=== PATIENT | female | born 1995 | race Caucasian/White ===

== ENCOUNTER 2017-04-28 12:42 | Emergency (ER) | payer SELFPAY ==
[2017-04-28 12:42] VITALS: BP 134/76; PULSE 86; RESP 14; TEMP 36.8; O2SAT 100; BMI 19.4
--- NOTE | 2017-04-28 12:58 | ED.VISSUMM ---
- ER Visit Summary Date of Service: 04/28/17 Chief Complaint: Vomiting and diarrhea History of Present Illness: The patient is a 21 F who states that beginning yesterday morning she began to have vomiting. She notes some slight diarrhea. She has a history of ulcerative colitis but denies any significant abdominal pain. No blood in the stool or vomit. She recently restarted her ulcerative colitis medications. She notes some rhinorrhea and a slight cough. Denies any significant headache or fevers. No rashes. She attempted to work today but had to leave work. She also states she is supposed to work tomorrow. Physical Examination: Afebrile vital signs are stable Gen: Well-nourished well-developed Head: Normocephalic atraumatic Eyes: Perrl EOMI ENT: TMs clear no rhinorrhea moist mucous membranes Neck: Supple no lymphadenopathy no JVD nontender CVS: Regular rate rhythm no murmurs normal S1-S2 Respiratory: No distress clear to auscultation bilaterally chest nontender Abdomen: Soft nontender nondistended normal bowel sounds no masses Back: Nontender Extremity: Nontender no edema Skin: Normal color no rash Neuro: alert orientated ?3 CN II-XII intact normal strength sensation reflexes gait cerebellar Psych: Normal affect normal mood Emergency Department Course and Treatment: She appears well-hydrated. Her vital signs are normal. Patient will be given a dose of Zofran here. She is to continue Zofran and Imodium at home. Return if worsening. Impression:. Viral gastroenteritis This note was generated with [employer] dictation software. It may contain incorrect words, spelling, and punctuation that were not noted in review of the chart prior to signing ED Disposition - Plan for ED Patient: Disposition: Home or Assisted Living Chief Complaint: Nausea/Vomiting Instructions: ED Gastroenteritis Viral Prescriptions: Ondansetron [Zofran Odt] 4 mg PO Q6H PRN PRN #10 tab PRN Reason: Nausea Referrals: Care Physician,No Primary [Primary Care Provider] - Sean Dean MD [STAFF PHYSICIAN] - (in 3-5 days if not improving. Return if worsening)
[2017-04-28] MEDS: Ondansetron ODT 4 MG Tablet PO (13:11)
== END 2017-04-28 13:34 | disposition home or self-care (01) ==
LOC: ED 13:20
PROVIDERS: Emergency Provider Emergency Medicine
DX: A08.4 Viral intestinal infection, unspecified (principal); K51.90 Ulcerative colitis, unspecified, without complications; Z72.0 Tobacco use; Z79.2 Long term (current) use of antibiotics; Z79.899 Other long term (current) drug therapy
CPT/HCPCS: 99283

== ENCOUNTER 2017-09-12 10:46 | Emergency (ER) | payer SELFPAY ==
[2017-09-12 10:46] VITALS: BP 114/69; PULSE 74; RESP 16; TEMP 36.9; O2SAT 100; BMI 18.0
[2017-09-12] MEDS: 0.9% Normal Saline 1,000 ML 1000 ML IV (11:31)
[2017-09-12 11:36] LABS: Absolute Lymphocyte Count 2.59 X10^3/ul (0.83-4.51); Absolute Neutrophil Count 5.6 X10^3/uL (2.0-7.7); Basophil# 0.03 X10^3/uL; Basophil% 0.3 % (0-1); Eosinophils% 1.1 % (0-5); Hematocrit 41.2 % (37-47); Hemoglobin 13.6 g/dl (12.0-15.0); Lymphocyte # 2.59 X10^3/ul (4.0); Lymphocyte % 29.8 % (19-41); Mean Corpuscular Hgb 32.5 pg (27.0-32.0); Mean Corpuscular Volume 98.3 fL (81-99); Mean Platelet Vol. 10.6 fl (6.2-12.0); Monocyte# 0.39 X10^3/uL; Monocyte% 4.5 % (0-10); Neutrophil # 5.58 X10^3/uL (2.7-7.7); Neutrophil % 64.2 % (47-70); POSITIVE COUNT NO; POSITIVE DIFFERENTIAL NO; POSITIVE MORPHOLOGY NO; Platelet Count 162 K/mm3 (150-450); RBC Distribution Width CV 12.4 % (11.6-14.6); Red Blood Count 4.19 M/mm3 (4.2-5.4); White Blood Count 8.7 K/mm3 (4.4-11.0)
[2017-09-12 11:51] LABS: Anion Gap 4 (5-15); BUN 16 mg/dL (7-18); BUN/Creat Ratio 22.5 RATIO (10-20); Calcium,Total 9.3 mg/dL (8.5-10.1); Chloride 107 mmol/L (98-107); Creatinine, Serum 0.71 mg/dL (0.55-1.02); EST Glomerular Filtration Rate 110 mL/min (>60); Est Glom Filt Rate - Afr Amer 133 mL/min (>60); Estimated Creatinine Clearance 103.39 ml/min; Glucose 81 mg/dL (74-106); Potassium 4.3 mmol/L (3.5-5.1); Sodium Level 143 mmol/L (136-145)
[2017-09-12 13:11] VITALS: BP 121/68; PULSE 74; RESP 15; O2SAT 98
--- NOTE | 2017-09-12 13:31 | ED.VISSUMM ---
- ER Visit Summary Date of Service: 09/12/17 Chief Complaint: Nausea and vomiting History of Present Illness: The patient is a 22 F history of ulcerative colitis diagnosed several years ago. Complaining of nausea and vomiting for the last 5 days since Saturday. Denies melena. She has intermittent times where she has diarrhea and other times she has constipation. Denies any dysuria. States she had a normal menstrual period within the last 2 weeks. Currently is does not have a primary care physician or a GI physician. She states she was scoped and had a biopsy of her colon 2-3 years ago here at [facility]. Physical Examination: Well-appearing young female. Vital signs are stable and afebrile. She does not look septic toxic or in acute rest. She clinically does not look dehydrated. H EENT exam unremarkable. Neck nontender no lymphadenopathy. Lungs good auscultation bilaterally. Heart regular rhythm no murmur. Abdomen soft nondistended normal bowel sounds. Mild left lateral lower quadrant tenderness. No rebound or guarding. No rigidity. Nondistended. No signs of obstruction. No hernias or masses. Right upper right lower quadrant unremarkable. No signs of trauma. Normal bowel sounds. Pelvic girdle intact. She is moving all 4 extremities. Neurovascular intact. Back exam nontender. Test Results: CBC showed a normal white count 8. H&H of 13 and 41. Chemistries are unremarkable gap 4. Normal BUN and creatinine. Emergency Department Course and Treatment: Repeat exam patient is doing well. She will be discharged home. Tylenol for pain. She will be written for pain medication for her ulcerative colitis. And she will be instructed to follow-up with local GI physician. Treatment Plan: [] Disposition: Discharge Impression: Abdominal pain uncertain etiology History of ulcerative colitis This note was generated with [employer] dictation software. It may contain incorrect words, spelling, and punctuation that were not noted in review of the chart prior to signing ED Disposition - Plan for ED Patient: Chief Complaint: Abd Pain Referrals: Care Physician,No Primary [Primary Care Provider] -
--- NOTE | 2017-09-12 13:34 | ED.DEP ---
ED Disposition - Plan for ED Patient: Disposition: Home or Assisted Living Chief Complaint: Abd Pain Instructions: ED Abdominal Pain Unkn Cause Referrals: Eron Patel MD [NON-STAFF] - As soon as possible Dunia Narayanan [NON-STAFF] - As soon as possible Additional Instructions: Asacol 800 mg 3 times a day. Call and follow-up with the GI doctor as soon as possible. You will need him to manage his condition long-term. Tylenol for pain.
[2017-09-12 13:52] VITALS: PULSE 68; RESP 18; O2SAT 100
== END 2017-09-12 13:53 | disposition home or self-care (01) ==
PROVIDERS: Emergency Provider Emergency Medicine
DX: R10.32 Left lower quadrant pain (principal); K51.90 Ulcerative colitis, unspecified, without complications; Z72.0 Tobacco use
CPT/HCPCS: 80048; 85025; 96360; 99283; J7030

== ENCOUNTER → 2020-01-11 16:44 | Outpatient (CLI) | payer OTHER, SELFPAY ==
[2020-01-11 18:12] LABS: T4 Free Direct 0.82 ng/dL (0.76-1.46); Thyroid Stim Hormone (TSH) 0.66 uIU/mL (0.358-3.74)
[2020-01-14 05:17] LABS: Testosterone Free 4.2 pg/mL (0.0-4.2)
== END ==
LOC: WOBLAB 16:47
PROVIDERS: Visit Provider Obstetrics & Gynecology
DX: N93.9 Abnormal uterine and vaginal bleeding, unspecified (principal)
CPT/HCPCS: 36415; 84146; 84402; 84439; 84443

== ENCOUNTER → 2020-03-07 | Outpatient (CLI) | payer OTHER, SELFPAY ==
[2020-03-09 12:26] LABS: HPV Reflexed? NOT INDICATED
== END | disposition home or self-care (01) ==
LOC: LABSPEC 11:55
PROVIDERS: Visit Provider Obstetrics & Gynecology
DX: Z12.4 Encounter for screening for malignant neoplasm of cervix (principal)
CPT/HCPCS: 88175; G0145

== ENCOUNTER 2020-11-26 10:24 | Emergency (ER) | payer MEDICARE, SELFPAY ==
[2020-11-26 10:25] VITALS: BP 126/89; PULSE 81; RESP 16; TEMP 36.9; O2SAT 99; BMI 21.2
--- NOTE | 2020-11-26 10:51 | RAD_ITS ---
HISTORY: Weakness. TECHNIQUE: XR Chest 1 View. # of images incl. paperwork: 1. COMPARISON: 04/29/2015. FINDINGS: CARDIOMEDIASTINAL STRUCTURES: Cardiac silhouette not enlarged. Mediastinal contour unremarkable. LUNGS: Radiographically clear. PLEURA: No pleural effusion or pneumothorax. OSSEOUS STRUCTURES: Unremarkable. RAD/Chest 1 View (Portable) IMPRESSION: No radiographic evidence of acute cardiopulmonary disease. at 1322 Reported and signed by: Mary Flores MD Electronically Signed: Mary Flores MD at 13:21 EDT Tel , Service support ,
--- NOTE | 2020-11-26 10:53 | EDS_ITS ---
HPI History of Present Illness Chief Complaint: General Illness Onset/Context/Timing Onset: Days (4) Context: Gradual Onset Timing: Continuous Quality: Weakness Location: Generalized Worsened by: Nothing Relieved by: Eating Narrative Narrative: Patient presents with low blood sugar and generalized weakness that has been getting worse over the last 4 days. Patient states it has been constant. Patient states she had a temperature of 100.6 last night. Patient states her blood sugars improved after eating. Patient states she did have an episode of pain in her chest yesterday when she was lifting something. Patient admits to a mild sore throat and some rhinorrhea. Patient admits to an o ccipital headache. Patient admits to nausea but denies any vomiting. [facility] Medical History (Updated 11/26/20 @ 13:[address] Alan Swenson DO) Ulcerative colitis Home Medications NK 11/26/20 [History Last Taken Unknown] Allergy/AdvReac Type Severity Reaction Status Date / Time bee venom protein (honey bee) Allergy Swelling Verified 11/26/20 10:43 codeine Allergy Hives Verified 11/26/20 10:43 Surgical History (Updated 11/26/20 @ 12:[address] Alan Swenson DO) Hx of tonsillectomy Social History Smoking Status: Current every day smoker tobacco type: cigarettes ROS ROS ED Constitutional Constitutional ED: Reports fever(s); Denies chills Eyes Eyes: Denies blurry vision or change in vision ENT ENT ED: Reports rhinorrhea and sore throat Cardiovascular Cardiovascular: Reports chest pain; Denies palpitations Respiratory/Chest Respiratory/Chest: Denies cough or dyspnea Gastrointestinal Gastrointestinal: Reports nausea; Denies vomiting Genitourinary Genitourinary ED: Denies dysuria or hematuria Musculoskeletal Musculoskeletal: Reports back pain; Denies neck pain Integumentary Reports rash; Denies abscess Neurologic Neurologic: Reports headache(s); Denies weakness Allergic/Immunologic Allergic/Immunologic ED: Denies mouth swelling or urticaria EXAM Physical Exam Const Vital Signs: 11/26/20 10:25 11/26/20 10:32 11/26/20 13:06 Temperature 98.5 F Temperature Source Oral Pulse Rate 81 86 Respiratory Rate 16 16 Respiratory Pattern Normal Blood Pressure 126/89 H 114/63 Blood Pressure Mean 101 80 Pulse Ox 99 99 Oxygen Delivery Method Room Air Room Air Positive well nourished and well developed General Appearance ED: well developed HEENT Reports moist mucous membranes Neck supple and no JVD Resp normal respiratory effort and clear to auscultation bilaterally Cardio regular rate, regular rhythm and no murmurs GI normal to inspection, nondistended, normoactive bowel sounds and non-tender Palpation: soft Extremity normal to inspection General Extremety ED: Negative for edema or tenderness General Extremity: Negative for edema Neuro oriented x3, CN's II-XII intact bilaterally and no sensory deficits noted Sensorium / Orientation: alert Motor Exam: strength 5/5 throughout Psych mental status grossly normal Skin no rashes or lesions noted MDM MDM MDM Narrative Medical decision making narrative: COVID-19 rapid antigen was obtained and was positive. CBC was within normal limits. Comprehensive metabolic profile was normal. Serum hCG was negative. Urinalysis does not show any evidence of urinary tract infection. Portable 1 view chest x-ray was obtained. On my interpretation, lung grimes are clear. There is normal cardiac silhouette. Bony thorax is normal. There is no acute process noted. Radiologist also interpreted the x-ray and agrees. Patient is feeling better on reevaluation. Patient was instructed to follow-up with her primary care physician in 5 to 7 days. Patient was given Covid precautions. Patient was instructed to return if worse in any way. Patient understood and was agreeable with the plan. All questions were answered. Lab Data Attestation: I reviewed the patient's lab results. Labs: Laboratory Results - last 24 hr 11/26/20 11/26/20 11/26/20 11:05 11:05 11:05 WBC 5.5 RBC 4.41 Hgb 13.9 Hct 42.2 MCV 95.7 MCH 31.5 MCHC 32.9 RDW Std Deviation 43.9 RDW Coeff of Renetta 12.4 Plt Count 187 MPV 10.4 Immature Gran % (Auto) 0.400 Neut % (Auto) 77.4 H Lymph % (Auto) 12.7 L [place] % (Auto) 8.9 Eos % (Auto) 0.2 Baso % (Auto) 0.4 Absolute Neuts (auto) 4.3 Absolute Lymphs (auto) 0.70 L Nucleated RBC % 0 Sodium 137 Potassium 3.9 Chloride 107 Carbon Dioxide 25.0 Anion Gap 5 BUN 11 Creatinine 0.76 Estim Creat Clear Calc 110.50 Est GFR (MDRD) Af Amer 119 Est GFR (MDRD) Non-Af 99 BUN/Creatinine Ratio 14.4 Glucose 93 Calcium 9.1 Total Bilirubin 0.40 AST 19 ALT 25 Alkaline Phosphatase 73 Total Protein 7.9 Albumin 4.2 Globulin 3.7 Albumin/Globulin Ratio 1.1 Serum , Qual NEGATIVE Urine Color Urine Clarity Urine pH Ur Specific [place] Urine Protein Urine Glucose (UA) Urine Ketones Urine Occult Blood Urine Nitrite Urine Bilirubin Urine Urobilinogen Ur Leukocyte Esterase Urine RBC Urine WBC Ur Squamous Epith Cells Urine Bacteria Urine Mucus 11/26/20 12:52 WBC RBC Hgb Hct MCV MCH MCHC RDW Std Deviation RDW Coeff of Renetta Plt Count MPV Immature Gran % (Auto) Neut % (Auto) Lymph % (Auto) [place] % (Auto) Eos % (Auto) Baso % (Auto) Absolute Neuts (auto) Absolute Lymphs (auto) Nucleated RBC % Sodium Potassium Chloride Carbon Dioxide Anion Gap BUN Creatinine Estim Creat Clear Calc Est GFR (MDRD) Af Amer Est GFR (MDRD) Non-Af BUN/Creatinine Ratio Glucose Calcium Total Bilirubin AST ALT Alkaline Phosphatase Total Protein Albumin Globulin Albumin/Globulin Ratio Serum , Qual Urine Color Yellow Urine Clarity Clear Urine pH 6.5 Ur Specific [place] 1.020 Urine Protein 15 H Urine Glucose (UA) Normal Urine Ketones 50 H Urine Occult Blood Negative Urine Nitrite Negative Urine Bilirubin Negative Urine Urobilinogen 4 H Ur Leukocyte Esterase Negative Urine RBC 0 SEEN Urine WBC 0 SEEN Ur Squamous Epith Cells 0 SEEN Urine Bacteria 0 SEEN Urine Mucus 0 SEEN Radiography Chest X-Ray - ED: 1 View, Read by ED Physician, Read by Radiologist and Normal Diagnostic Testing: Radiology Impression Chest X-Ray 11/26/20 10:51 IMPRESSION: No radiographic evidence of acute cardiopulmonary disease. at 1322 Reported and signed by: Mary Flores MD Electronically Signed: Mary Flores MD at 13:21 EDT Tel , Service support , Discharge Plan Triage Chief Complaint: General Illness ED Provider: Alan Swenson Dx/Rx/DC Orders Clinical Impression: COVID-19 Instructions: Coronavirus Disease 2019 (COVID-19): Caring for Yourself or Others Prescriptions: No Action NK RF: 0 Primary Care Provider: Care Physician,No Primary Referrals: Mark Hernandez MD [NON-STAFF] - 5-7 Days Care Physician,No Primary [Primary Care Provider] - Disposition Disposition: Home, Self Care
[2020-11-26 11:14] LABS: Absolute Neutrophil Count 4.3 X10^3/uL (2.0-7.7); Basophil# 0.02 X10^3/uL; Basophil% 0.4 % (0-1); Eosinophil# 0.01 X10^3/uL; Eosinophils% 0.2 % (0-5); Hematocrit 42.2 % (37-47); Hemoglobin 13.9 g/dL (12.0-15.0); Lymphocyte % 12.7 % (19-41); Mean Corp Hgb Conc 32.9 g/dL (32-36); Mean Corpuscular Hgb 31.5 pg (27.0-32.0); Mean Corpuscular Volume 95.7 fL (81-99); Mean Platelet Vol. 10.4 fl (6.2-12.0); Monocyte# 0.49 X10^3/uL; Monocyte% 8.9 % (0-10); NRBC Flagged by Analyzer 0 % (0-5); Neutrophil # 4.29 X10^3/uL (2.7-7.7); Neutrophil % 77.4 % (47-70); Platelet Count 187 K/mm3 (150-450); RBC Distribution Width CV 12.4 % (11.6-14.6); RBC Distribution Width SD 43.9 fl (35.1-43.9); Red Blood Count 4.41 M/mm3 (4.2-5.4); White Blood Count 5.5 K/mm3 (4.4-11.0)
[2020-11-26 11:29] LABS: ALB/GLOB Ratio 1.1 RATIO (0.9-2.4); AST(SGOT) 19 U/L (15-37); Alanine Aminotransfer ALT/SGPT 25 U/L (13-56); Albumin, Serum 4.2 g/dL (3.2-5.0); Alkaline Phosphatase 73 U/L (45-117); Anion Gap 5 (5-15); BUN 11 mg/dL (7-18); BUN/Creat Ratio 14.4 RATIO (10-20); Calcium,Total 9.1 mg/dL (8.5-10.1); Chloride 107 mmol/L (98-107); Creatinine, Serum 0.76 mg/dL (0.55-1.02); EST Glomerular Filtration Rate 99 mL/min (>60); Est Glom Filt Rate - Afr Amer 119 mL/min (>60); Globulin 3.7 g/dL (2.2-4.2); Glucose 93 mg/dL (74-106); Potassium 3.9 mmol/L (3.5-5.1); Protein, Total 7.9 g/dL (6.4-8.2); Sodium Level 137 mmol/L (136-145)
[2020-11-26 11:32] LABS: Internal QC Validated? YES +Cl - CLEAR BKGD; Pregnancy, Serum, hCG Quali. NEGATIVE Negative
[2020-11-26 12:58] LABS: Bacteria 0 SEEN /hpf (None Seen); Color, Urine Yellow (Yellow); Glucose, Dipstick Normal (Normal); Ketone-Dipstick 50 mg/dl (Negative); Leukocyte Esterase-Dipstick Negative /ul (Negative); Mucous, Urine 0 SEEN /hpf (<or=2+); Nitrite-Dipstick Negative (Negative); Occult Blood-Urine Negative /ul (Negative); Protein-Dipstick 15 mg/dl (Negative); Red Blood Cells-Urine 0 SEEN /hpf (0-5); Squamous Epithelial Cells - UA 0 SEEN /hpf (5-10); Urine Bilirubin Dipstick Negative (Negative); Urine Clarity Clear (Clear); Urine Urobilinogen 4 mg/dl (Normal); Urine pH 6.5 (5.0 - 8.0); White Blood Cells 0 SEEN /hpf (0-5)
[2020-11-26 13:06] VITALS: BP 114/63; PULSE 86; RESP 16; O2SAT 99
== END 2020-11-26 13:38 | disposition home or self-care (01) ==
PROVIDERS: Emergency Provider Emergency Medicine
DX: U07.1 COVID-19 (principal); F17.210 Nicotine dependence, cigarettes, uncomplicated
CPT/HCPCS: 71045; 80053; 81001; 84703; 85025; 87426; 99283; A4216

== ENCOUNTER 2021-09-13 16:04 | Emergency (ER) | payer SELFPAY ==
[2021-09-13 16:04] VITALS: BP 128/84; PULSE 73; RESP 16; TEMP 36.6; O2SAT 100; BMI 20.3
--- NOTE | 2021-09-13 16:46 | EX.ED.DYSGE1 ---
HPI History of Present Illness Chief Complaint: General Illness Informant: patient Onset/Context/Timing Onset: Yesterday Context: Gradual Onset Timing: Intermittent Quality: Weak, shaky Location: Generalized Worsened by: Nothing Relieved by: Eating Narrative Narrative: Patient presents with headaches and hypoglycemic episodes that began yesterday. Patient states they have been intermittent. Patient states she feels weak and shaky. Patient states her symptoms are generalized. Patient states nothing makes worse. Patient states that the get better after she eats. Patient states her last meal was approximately noon today. Patient admits to some nausea and vomiting last night. Patient admits to a headache. Patient states it is generalized. Patient denies any visual changes. [facility] Medical History Ulcerative colitis Home Medications NK 11/26/20 [History Last Taken Unknown] Allergy/AdvReac Type Severity Reaction Status Date / Time bee venom protein (honey bee) Allergy Swelling Verified 09/13/21 16:06 codeine Allergy Hives Verified 09/13/21 16:06 Surgical History Hx of tonsillectomy Social History Smoking Status: Current every day smoker tobacco type: cigarettes ROS ROS ED Constitutional Constitutional ED: Denies chills or fever(s) Eyes Eyes: Denies blurry vision or change in vision ENT ENT ED: Denies rhinorrhea or sore throat Cardiovascular Cardiovascular: Denies chest pain or palpitations Respiratory/Chest Respiratory/Chest: Denies cough or dyspnea Gastrointestinal Gastrointestinal: Reports nausea and vomiting Genitourinary Genitourinary ED: Denies dysuria or hematuria Musculoskeletal Musculoskeletal: Denies back pain or neck pain Integumentary Denies abscess or rash Neurologic Neurologic: Reports headache(s); Denies weakness Allergic/Immunologic Allergic/Immunologic ED: Denies mouth swelling or urticaria EXAM Physical Exam Const Vital Signs: 09/13/21 16:04 09/13/21 16:30 09/13/21 18:04 Temperature 98 F Temperature Source Temporal Pulse Rate 73 78 Respiratory Rate 16 16 Respiratory Effort Normal Non-Labored Respiratory Pattern Normal Blood Pressure 128/84 H 122/78 H Blood Pressure Mean 98 92 Pulse Ox 100 99 Oxygen Delivery Method Room Air Room Air Positive well nourished and well developed General Appearance ED: well developed HEENT Reports moist mucous membranes Neck supple and no JVD Resp normal respiratory effort and clear to auscultation bilaterally Cardio regular rate, regular rhythm and no murmurs GI normal to inspection, nondistended, normoactive bowel sounds and non-tender Palpation: soft Extremity normal to inspection General Extremety ED: Negative for edema or tenderness General Extremity: Negative for edema Neuro oriented x3, CN's II-XII intact bilaterally and no sensory deficits noted Sensorium / Orientation: alert Motor Exam: strength 5/5 throughout Psych mental status grossly normal Skin no rashes or lesions noted MDM MDM MDM Narrative Medical decision making narrative: CBC was within normal limits. Comprehensive metabolic profile was within normal limits. Anion gap was 2. Serum hCG was negative. Urinalysis does not show any evidence of urinary tract infection or hematuria. Patient was advised of her findings. Patient is instructed to keep a log of her blood sugars at home. Patient was given a referral for primary care physician for follow-up care in 5 to 7 days. Patient understood and was agreeable at the plan. All questions were answered. Lab Data Attestation: I reviewed the patient's lab results. Labs: Laboratory Results - last 24 hr 09/13/21 09/13/21 09/13/21 17:05 17:05 17:05 WBC 9.9 RBC 4.16 L Hgb 13.1 Hct 39.8 MCV 95.7 MCH 31.5 MCHC 32.9 RDW Std Deviation 43.9 RDW Coeff of Renetta 12.4 Plt Count 230 MPV 10.5 Immature Gran % (Auto) 0.200 Neut % (Auto) 68.9 Lymph % (Auto) 26.0 [place] % (Auto) 3.8 Eos % (Auto) 0.6 Baso % (Auto) 0.5 Absolute Neuts (auto) 6.8 Absolute Lymphs (auto) 2.57 Nucleated RBC % 0 Sodium 140 Potassium 3.9 Chloride 109 H Carbon Dioxide 29.0 Anion Gap 2 L BUN 11 Creatinine 0.76 Estim Creat Clear Calc 105.34 Est GFR (MDRD) Af Amer 120 Est GFR (MDRD) Non-Af 99 BUN/Creatinine Ratio 14.5 Glucose 86 Calcium 9.2 Total Bilirubin 0.40 AST 17 ALT 23 Alkaline Phosphatase 59 Total Protein 7.2 Albumin 4.0 Globulin 3.2 Albumin/Globulin Ratio 1.2 Serum , Qual NEGATIVE Urine Color Urine Clarity Urine pH Ur Specific [place] Urine Protein Urine Glucose (UA) Urine Ketones Urine Occult Blood Urine Nitrite Urine Bilirubin Urine Urobilinogen Ur Leukocyte Esterase Urine RBC Urine WBC Ur Squamous Epith Cells Urine Bacteria Urine Mucus 09/13/21 17:53 WBC RBC Hgb Hct MCV MCH MCHC RDW Std Deviation RDW Coeff of Renetta Plt Count MPV Immature Gran % (Auto) Neut % (Auto) Lymph % (Auto) [place] % (Auto) Eos % (Auto) Baso % (Auto) Absolute Neuts (auto) Absolute Lymphs (auto) Nucleated RBC % Sodium Potassium Chloride Carbon Dioxide Anion Gap BUN Creatinine Estim Creat Clear Calc Est GFR (MDRD) Af Amer Est GFR (MDRD) Non-Af BUN/Creatinine Ratio Glucose Calcium Total Bilirubin AST ALT Alkaline Phosphatase Total Protein Albumin Globulin Albumin/Globulin Ratio Serum , Qual Urine Color Yellow Urine Clarity Sl. Cloudy Urine pH 7.0 Ur Specific [place] 1.010 Urine Protein Negative Urine Glucose (UA) Normal Urine Ketones Negative Urine Occult Blood Negative Urine Nitrite Negative Urine Bilirubin Negative Urine Urobilinogen Normal Ur Leukocyte Esterase 25 H Urine RBC 0-5 SEEN Urine WBC 0-5 SEEN Ur Squamous Epith Cells 0-5 SEEN Urine Bacteria 1+ Urine Mucus 0 SEEN Discharge Plan Triage Chief Complaint: General Illness ED Provider: Alan Swenson Dx/Rx/DC Orders Clinical Impression: Viral illness Instructions: ED Viral Syndrome (Adult) Prescriptions: No Action NK Primary Care Provider: Care Physician,No Primary Referrals: Fast,Makenzie, DO [NON-STAFF] - 5-7 Days Care Physician,No Primary [Primary Care Provider] - Disposition Disposition: Home, Self Care
[2021-09-13 17:15] LABS: Absolute Lymphocyte Count 2.57 X10^3/uL (0.83-4.51); Absolute Neutrophil Count 6.8 X10^3/uL (2.0-7.7); Basophil# 0.05 X10^3/uL; Basophil% 0.5 % (0-1); Eosinophil# 0.06 X10^3/uL; Eosinophils% 0.6 % (0-5); Hematocrit 39.8 % (37-47); Hemoglobin 13.1 g/dL (12.0-15.0); Lymphocyte # 2.57 X10^3/ul (0.83-4.51); Mean Corp Hgb Conc 32.9 g/dL (32-36); Mean Corpuscular Hgb 31.5 pg (27.0-32.0); Mean Corpuscular Volume 95.7 fL (81-99); Mean Platelet Vol. 10.5 fl (6.2-12.0); Monocyte# 0.38 X10^3/uL; Monocyte% 3.8 % (0-10); NRBC Flagged by Analyzer 0 % (0-5); Neutrophil # 6.81 X10^3/uL (2.7-7.7); Neutrophil % 68.9 % (47-70); Platelet Count 230 K/mm3 (150-450); RBC Distribution Width CV 12.4 % (11.6-14.6); RBC Distribution Width SD 43.9 fl (35.1-43.9); Red Blood Count 4.16 M/mm3 (4.2-5.4); White Blood Count 9.9 K/mm3 (4.4-11.0)
[2021-09-13 17:29] LABS: ALB/GLOB Ratio 1.2 RATIO (0.9-2.4); AST(SGOT) 17 U/L (15-37); Alanine Aminotransfer ALT/SGPT 23 U/L (13-56); Alkaline Phosphatase 59 U/L (45-117); Anion Gap 2 (5-15); BUN 11 mg/dL (7-18); BUN/Creat Ratio 14.5 RATIO (10-20); Calcium,Total 9.2 mg/dL (8.5-10.1); Chloride 109 mmol/L (98-107); Creatinine, Serum 0.76 mg/dL (0.55-1.02); EST Glomerular Filtration Rate 99 mL/min (>60); Est Glom Filt Rate - Afr Amer 120 mL/min (>60); Estimated Creatinine Clearance 105.34 ml/min; Globulin 3.2 g/dL (2.2-4.2); Glucose 86 mg/dL (74-106); Potassium 3.9 mmol/L (3.5-5.1); Protein, Total 7.2 g/dL (6.4-8.2); Sodium Level 140 mmol/L (136-145)
[2021-09-13 17:37] LABS: Internal QC Validated? YES +Cl - CLEAR BKGD; Pregnancy, Serum, hCG Quali. NEGATIVE Negative
[2021-09-13 18:01] LABS: Mucous, Urine 0 SEEN /hpf (<or=2+)
[2021-09-13 18:03] LABS: Color, Urine Yellow (Yellow); Glucose, Dipstick Normal (Normal); Ketone-Dipstick Negative (Negative); Leukocyte Esterase-Dipstick 25 /ul (Negative); Nitrite-Dipstick Negative (Negative); Occult Blood-Urine Negative /ul (Negative); Protein-Dipstick Negative (Negative); Urine Bilirubin Dipstick Negative (Negative); Urine Clarity Sl. Cloudy (Clear); Urine Urobilinogen Normal (Normal)
[2021-09-13 18:04] VITALS: BP 122/78; PULSE 78; RESP 16; O2SAT 99
[2021-09-13 18:19] LABS: Bacteria 1+ /hpf (None Seen); Red Blood Cells-Urine 0-5 SEEN /hpf (0-5); Squamous Epithelial Cells - UA 0-5 SEEN /hpf (5-10); White Blood Cells 0-5 SEEN /hpf (0-5)
[2021-09-13 19:02] VITALS: BP 134/78; PULSE 65; RESP 18; TEMP 37.2; O2SAT 100
== END 2021-09-13 19:04 | disposition home or self-care (01) ==
PROVIDERS: Emergency Provider Emergency Medicine; Visit Provider Emergency Medicine
DX: B34.9 Viral infection, unspecified (principal); F17.210 Nicotine dependence, cigarettes, uncomplicated
CPT/HCPCS: 80053; 81001; 84703; 85025; 99283; A4216

== ENCOUNTER 2022-03-06 08:22 | Emergency (ER) | payer SELFPAY ==
[2022-03-06 08:22] VITALS: BP 112/75; PULSE 76; RESP 14; TEMP 36.6; O2SAT 99; BMI 20.9
--- NOTE | 2022-03-06 08:57 | CT_ITS ---
STUDY: CT BRAIN WITHOUT CONTRAST REASON FOR EXAM: Female, 26 years old. Headache, vomiting and photophobia. RADIATION DOSAGE (If Supplied By Facility): CTDIvol = ( 44.99 ) mGy, DLP = ( 745.49 ) mGycm TECHNIQUE: Transaxial CT imaging of the brain was performed without administration of intravenous contrast material. Individualized dose optimization techniques were used for this CT. COMPARISON: No relevant priors. FINDINGS: Normal soft tissue structures. Normal calvarium. Normal size ventricles and extra-axial spaces for the patient''s age. Normal white matter tracts of the cerebral hemispheres. Normal basal ganglia and thalami. Normal brainstem. Normal cerebellum. There is no intracranial hemorrhage. There are no findings of an acute ischemic infarction. Normal visualized paranasal sinuses. CT/Brain/Head without Contrast IMPRESSION: Normal unenhanced CT scan of the brain. Electronically Signed: Jairo Reynaga MD at 9:39 EST ,
--- NOTE | 2022-03-06 08:57 | EX.ED.VIS.HA ---
HPI History of Present Illness Chief Complaint: Headache Informant: patient and parent (Mother there are due to patient having worsening headache with talking) Onset/Context/Timing Onset: Yesterday Context: Gradual Timing: Continuous Quality -Headache: Positive for Sharp; Negative for Similar Prior Headaches Location: Behind right eye, radiating up to top of right parietal head and back some Current Severity: Severe Maximum Severity: Severe Worsened by: Light Relieved by: Nothing Associated Symptoms/Injury Associated Symptoms: Positive for Nausea, Vomiting, Sinus Pressure, Blurred Vision and Photophobia; Negative for Numbness, Tingling or Visual Loss Injury - CARLOS: Negative for Direct Trauma Narrative Narrative: Patient states she never gets headaches and this is severe. She has photophobia, nausea, vomiting. She has had sinus congestion for the past week without any fevers. She has been coughing since yesterday, and developed some cold chills. Healthy other than ulcerative colitis which is well controlled at this time. Does not have menstrual cycle since she has Norplant. [facility] Medical History Ulcerative colitis Home Medications metoclopramide HCl 10 mg tablet 10 mg PO Q6H PRN nausea or migraine #20 tabs 03/06/22 [Rx Last Taken Unknown] Allergy/AdvReac Type Severity Reaction Status Date / Time bee venom protein (honey bee) Allergy Swelling Verified 03/06/22 08:24 codeine Allergy Hives Verified 03/06/22 08:24 Surgical History Hx of tonsillectomy Social History Smoking Status: Current every day smoker tobacco type: cigarettes ROS ROS ED Constitutional Constitutional ED: Reports chills; Denies fever(s) Eyes Eyes: Reports blurry vision and photophobia; Denies diplopia ENT ENT ED: Reports headache(s), nasal congestion and rhinorrhea; Denies ear pain or sore throat Cardiovascular Cardiovascular: Denies chest pain or palpitations Respiratory/Chest Respiratory/Chest: Denies cough or dyspnea Gastrointestinal Gastrointestinal: Reports nausea and vomiting; Denies abdominal pain or diarrhea Genitourinary Genitourinary ED: Denies dysuria or urinary frequency Musculoskeletal Musculoskeletal: Denies back pain or myalgias Integumentary Denies abscess or rash Neurologic Neurologic: Reports headache(s); Denies paresthesias or weakness Psychiatric Psychiatric: Denies depression or suicidal thoughts Endocrine Endocrinology: Denies polydipsia or polyuria EXAM Physical Exam Const Vital Signs: 03/06/22 08:22 Temperature 97.9 F Temperature Source Temporal Pulse Rate 76 Respiratory Rate 14 Blood Pressure 112/75 Blood Pressure Mean 87 Pulse Ox 99 Oxygen Delivery Method Room Air Positive well nourished and well developed General Appearance ED: well developed and NAD HEENT Reports normocephalic, TM's clear and moist mucous membranes HEENT Narrative: No sinus tenderness. atraumatic Tympanic Membrane ED: Yes TM's clear Throat: Negative for posterior oropharynx abnormal Eyes PERRL, EOMs intact bilaterally and conjunctivae normal Eyes Narrative: photophobia Neck no lymphadenopathy, supple and no meningeal signs Resp normal respiratory effort and clear to auscultation bilaterally Resp Narrative: Occasional dry cough with bronchospasm, nonproductive Cardio no murmurs Rate: regular rate Rhythm: regular rhythm GI non-tender and non-distended Palpation: soft Extremity normal to inspection and full ROM Neuro oriented x3 and CN's II-XII intact bilaterally Sensorium / Orientation: awake and alert Speech: speech normal Gait (Neuro): normal gait Motor Exam: strength 5/5 throughout Psych mental status grossly normal Skin Lesions: no lesions Rashes: no rashes MDM MDM MDM Narrative Medical decision making narrative: Given your unusual headache for this patient although it does have migraine features, CT was obtained. My interpretation of the CT agrees with that of the radiologist. It is negative for nothing acute. Patient was given Reglan and IV fluids and she feels much better. Mom is comfortable taking her home. For her URI symptoms, COVID and influenza swabs were obtained they are negative. Sounds like there is a significant family history of migraines in mother, brothers, and other family members. That may be contributing to this patient's presentation and headache, as may be her likely viral infection or the weather, it is low pressure today and rainy. We will prescribe her Reglan to use as needed. Radiography Diagnostic Testing: Clinical Impression(s) from Imaging Studies Brain CT 03/06/22 08:57 IMPRESSION: Normal unenhanced CT scan of the brain. Electronically Signed: Jairo Reynaga MD at 9:39 EST , Discharge Plan Triage Chief Complaint: Headache ED Provider: Hipolito Salmeron Dx/Rx/DC Orders Clinical Impression: Headache, migraine, Viral URI with cough Instructions: ED, Migraine (Classical) Prescriptions: New metoclopramide HCl [metoclopramide HCl] 10 mg tablet 10 mg PO Q6H PRN (Reason: nausea or migraine) Qty: 20 0RF Primary Care Provider: Care Physician,No Primary Referrals: Care Physician,No Primary [Primary Care Provider] - Doctor,Your [Non-Staff] - 1 Week if not improving Disposition Disposition: Home, Self Care
[2022-03-06] MEDS: Metoclopramide 10 MG/2 ML Vial 5 MG IV (09:12)
[2022-03-06] MEDS: 0.9% Normal Saline 1,000 ML 999 ML IV (09:12)
[2022-03-06 11:08] VITALS: BP 98/58; PULSE 86; RESP 18; O2SAT 98
== END 2022-03-06 11:16 | disposition home or self-care (01) ==
PROVIDERS: Emergency Provider Emergency Medicine; Visit Provider Emergency Medicine
DX: J06.9 Acute upper respiratory infection, unspecified (principal); K51.90 Ulcerative colitis, unspecified, without complications; G43.909 Migraine, unspecified, not intractable, without status migrainosus; R11.2 Nausea with vomiting, unspecified; F17.210 Nicotine dependence, cigarettes, uncomplicated
CPT/HCPCS: 70450; 87428; 96361; 96374; 99283; J7030

== ENCOUNTER 2022-04-23 01:55 | Inpatient (IN) | payer SELFPAY ==
[2022-04-23] VITALS (13 sets, daily range): BP systolic 96–118; BP diastolic 62–88; PULSE 70–101; RESP 12–18; TEMP 36.1–36.9; O2SAT 94–99; BMI 21.5; BMI 21.7
--- NOTE | 2022-04-23 02:35 | EDS_ITS ---
HPI HPI - GI History of Present Illness Chief Complaint: Abd Pain Narrative Narrative: 26-year-old female diagnosed with UC at the age of 16 presenting with diffuse crampy abdominal pain. She states that since 2014 she has not sought care for her UC. She states when she gets a flare she just rolls with that. Over the last 2 weeks she has noticed that she has had increasing pain. She states that overnight she is vomiting feces and she is seeing bloody stools. Patient denies any other medical problems. [facility] Medical History (Updated 04/23/22 @ 07:[address] Laney Delgadillo, DO) COVID-19 Ulcerative colitis Allergy/AdvReac Type Severity Reaction Status Date / Time bee venom protein (honey bee) Allergy Swelling Verified 04/23/22 02:12 codeine Allergy Hives Verified 04/23/22 02:12 Surgical History Hx of tonsillectomy Social History Smoking Status: Current every day smoker tobacco type: cigarettes ROS ROS ED Constitutional Constitutional ED: Denies chills, fever(s) or sweats Eyes Eyes: Denies blurry vision or change in vision ENT ENT ED: Denies ear pain or sore throat Cardiovascular Cardiovascular: Denies chest pain, palpitations or racing heartbeat Respiratory/Chest Respiratory/Chest: Denies cough, dyspnea or sputum Gastrointestinal Gastrointestinal: Reports abdominal pain, diarrhea and other Details: Hematochezia ; Denies constipation Genitourinary Genitourinary ED: Denies dysuria, hematuria or urinary frequency Musculoskeletal Musculoskeletal: Denies arthralgias, myalgias or neck pain Integumentary Denies abscess, Abrasions or rash Neurologic Neurologic: Denies headache(s), paresthesias or weakness Psychiatric Psychiatric: Denies anxiety, depression, suicidal ideation or suicidal thoughts Endocrine Endocrinology: Denies polydipsia or polyuria EXAM Physical Exam Const Vital Signs: 04/23/22 01:56 04/23/22 02:10 04/23/22 04:01 Temperature 97.1 F L 97.8 F Temperature Source Temporal Temporal Pulse Rate 101 H 99 Pulse Rate [Standing (for 1 minute prior to obtaining)] 70 Respiratory Rate 18 18 Blood Pressure 113/75 113/75 Blood Pressure [Lying] 96/64 Blood Pressure [Sitting (for 1 minute prior to obtaining)] 100/62 Blood Pressure [Standing (for 1 minute prior to obtaining)] 108/64 Blood Pressure Mean 87 87 Blood Pressure Mean [Lying] 74 Blood Pressure Mean [Sitting (for 1 minute prior to obtaining)] 74 Blood Pressure Mean [Standing (for 1 minute prior to obtaining)] 78 Pulse Ox 97 97 Oxygen Delivery Method Room Air Room Air 04/23/22 04:02 04/23/22 04:03 04/23/22 06:23 Temperature 98.4 F Temperature Source Temporal Pulse Rate 74 Pulse Rate [Standing (for 1 minute prior to obtaining)] Respiratory Rate 12 Blood Pressure 108/64 108/64 104/66 Blood Pressure [Lying] Blood Pressure [Sitting (for 1 minute prior to obtaining)] Blood Pressure [Standing (for 1 minute prior to obtaining)] Blood Pressure Mean 78 78 78 Blood Pressure Mean [Lying] Blood Pressure Mean [Sitting (for 1 minute prior to obtaining)] Blood Pressure Mean [Standing (for 1 minute prior to obtaining)] Pulse Ox 99 Oxygen Delivery Method Room Air General Appearance ED: Negative for pallor HEENT Reports normocephalic, head/scalp atraumatic and moist mucous membranes Eyes PERRL and EOMs intact bilaterally Neck no lymphadenopathy and supple Chest Wall inspection of chest normal and palpation of chest normal Resp normal respiratory effort and clear to auscultation bilaterally Auscultation: Negative for rales, rhonchi or wheezes Cardio regular rate and regular rhythm GI GI Narrative: Diffusely tender. Abdomen is not rigid. No guarding or rebound. Palpation: soft Narrative: Deferred Back/Spine no CVA tenderness General Back: Negative for CVA tenderness Cervical Spine: Negative for cervical spine tenderness Extremity normal to inspection General Extremety ED: Yes edema and tenderness General Extremity: edema Neuro oriented x3 and CN's II-XII intact bilaterally Sensorium / Orientation: alert Motor Exam: strength 5/5 throughout Psych mental status grossly normal Attitude: No agitated Skin no rashes or lesions noted and no wounds General Skin Exam: Negative for jaundice or pallor MDM MDM MDM Narrative Medical decision making narrative: Patient presenting with diffuse crampy abdominal pain. She states he has a history of UC. She is never sought treatment until tonight. Differential includes but is not limited to GERD, gastritis, peptic ulcer disease, acute cholecystitis, acute cholelithiasis, appendicitis, diverticulitis, pancreatitis, small bowel obstruction, perforated bowel. Patient medicated with 4 mg morphine and 4 mg Zofran. She is also given a liter of IV fluids. Patient was typed and screened. CBC to assess white blood cell count, hemoglobin, differential. CMP to assess liver function, renal function, glucose, anion gap. Lipase to assess for pancreatitis. Urinalysis to assess for UTI. Occult stool. CT of the abdomen pelvis with IV contrast is to be obtained. CBC shows a leukocytosis of 16.9. Hemoglobin 11.8. Previous baseline noted to be 13.1. BUN/creatinine ratio normal. GFR normal. Electrolytes within normal limits. LFTs normal. Serum hCG negative. Urinalysis negative for infection. Lipase negative. CT findings for the abdomen pelvis below. This shows concern for ulcerative colitis flare. Will discuss with Dr. Priest. After speaking with Dr. Priest he recommended Zosyn. He did not recommend steroids. Patient will be admitted to the hospitalist. Patient was given additional dose of morphine before going to the medical floor. Impression: 1. History of ulcerative colitis 2. GI bleed 3. Abdominal pain 4. Acute blood loss anemia Lab Data Attestation: I reviewed the patient's lab results. Labs: Laboratory Results - last 24 hr 04/23/22 04/23/22 04/23/22 02:25 02:25 02:25 WBC Cancelled Corrected WBC Cancelled RBC Cancelled Hgb Cancelled Hct Cancelled MCV Cancelled MCH Cancelled MCHC Cancelled RDW Std Deviation Cancelled RDW Coeff of Renetta Cancelled Plt Count Cancelled MPV Cancelled Immature Gran % (Auto) Cancelled Neut % (Auto) Cancelled Lymph % (Auto) Cancelled [place] % (Auto) Cancelled Eos % (Auto) Cancelled Baso % (Auto) Cancelled Absolute Neuts (auto) Cancelled Absolute Lymphs (auto) Cancelled Total Counted Cancelled Neutrophils % (Manual) Cancelled Band Neutrophils % Cancelled Lymphocytes % (Manual) Cancelled Monocytes % (Manual) Cancelled Eosinophils % (Manual) Cancelled Basophils % (Manual) Cancelled Metamyelocytes % Cancelled Myelocytes % Cancelled Promyelocytes % Cancelled Blast Cells % Cancelled Plasma Cell % (Manual) Cancelled Other Cells % Cancelled Nucleated RBC % Cancelled Nucleated RBCs/100 WBC Cancelled Differential Comment Cancelled Diff Path Review Cancelled Hypersegmented Neuts Cancelled Atypical Lymphocytes Cancelled Reactive Lymphocytes Cancelled Smudge Cells Cancelled Toxic Granulation Cancelled Toxic Vacuolation Cancelled Dohle Bodies Cancelled Elena Rods Cancelled Platelet Estimate Cancelled Plt Morphology Comment Cancelled RBC Morphology Cancelled Polychromasia Cancelled Hypochromasia Cancelled Poikilocytosis Cancelled Basophilic Stippling Cancelled Anisocytosis Cancelled Microcytosis Cancelled Macrocytosis Cancelled Spherocytes Cancelled Sickle Cells Cancelled Target Cells Cancelled Tear Drop Cells Cancelled Ovalocytes Cancelled Stomatocytes Cancelled [place] Bodies Cancelled Ld Cells Cancelled Bite Cells Cancelled Crenated Cell Cancelled Acanthocytes (Spur) Cancelled Rouleaux Cancelled Schistocytes Cancelled Sodium 139 Potassium 3.5 Chloride 109 H Carbon Dioxide 23.0 Anion Gap 7 BUN 8 Creatinine 0.63 Estim Creat Clear Calc 127.79 Est GFR (MDRD) Af Amer 147 Est GFR (MDRD) Non-Af 121 BUN/Creatinine Ratio 12.7 Glucose 101 Calcium 8.9 Total Bilirubin 0.50 AST 26 ALT 21 Alkaline Phosphatase 70 Total Protein 6.7 Albumin 3.1 L Globulin 3.6 Albumin/Globulin Ratio 0.9 Lipase 85 Serum , Qual NEGATIVE Urine Color Urine Clarity Urine pH Ur Specific [place] Urine Protein Urine Glucose (UA) Urine Ketones Urine Occult Blood Urine Nitrite Urine Bilirubin Urine Urobilinogen Ur Leukocyte Esterase Urine RBC Urine WBC Ur Squamous Epith Cells Urine Bacteria Urine Mucus 04/23/22 04/23/22 02:25 03:15 WBC 16.9 H Corrected WBC RBC 3.74 L Hgb 11.8 L Hct 36.0 L MCV 96.3 MCH 31.6 MCHC 32.8 RDW Std Deviation 44.2 H RDW Coeff of Renetta 12.4 Plt Count 243 MPV 9.6 Immature Gran % (Auto) 0.400 Neut % (Auto) 82.6 H Lymph % (Auto) 11.1 L [place] % (Auto) 5.3 Eos % (Auto) 0.4 Baso % (Auto) 0.2 Absolute Neuts (auto) 14.0 H Absolute Lymphs (auto) 1.88 Total Counted Neutrophils % (Manual) Band Neutrophils % Lymphocytes % (Manual) Monocytes % (Manual) Eosinophils % (Manual) Basophils % (Manual) Metamyelocytes % Myelocytes % Promyelocytes % Blast Cells % Plasma Cell % (Manual) Other Cells % Nucleated RBC % 0 Nucleated RBCs/100 WBC Differential Comment Diff Path Review Hypersegmented Neuts Atypical Lymphocytes Reactive Lymphocytes Smudge Cells Toxic Granulation Toxic Vacuolation Dohle Bodies Elena Rods Platelet Estimate Plt Morphology Comment RBC Morphology Polychromasia Hypochromasia Poikilocytosis Basophilic Stippling Anisocytosis Microcytosis Macrocytosis Spherocytes Sickle Cells Target Cells Tear Drop Cells Ovalocytes Stomatocytes [place] Bodies [place] Cells Bite Cells Crenated Cell Acanthocytes (Spur) Rouleaux Schistocytes Sodium Potassium Chloride Carbon Dioxide Anion Gap BUN Creatinine Estim Creat Clear Calc Est GFR (MDRD) Af Amer Est GFR (MDRD) Non-Af BUN/Creatinine Ratio Glucose Calcium Total Bilirubin AST ALT Alkaline Phosphatase Total Protein Albumin Globulin Albumin/Globulin Ratio Lipase Serum , Qual Urine Color Yellow Urine Clarity Clear Urine pH 6.5 Ur Specific [place] 1.015 Urine Protein Negative Urine Glucose (UA) Normal Urine Ketones Negative Urine Occult Blood Negative Urine Nitrite Negative Urine Bilirubin Negative Urine Urobilinogen Normal Ur Leukocyte Esterase Negative Urine RBC 0 SEEN Urine WBC 0-5 SEEN Ur Squamous Epith Cells 0-5 SEEN Urine Bacteria 1+ Urine Mucus 0 SEEN Radiography Diagnostic Testing: Clinical Impression(s) from Imaging Studies Abdomen/Pelvis CT 04/23/22 03:54 IMPRESSION: 1. Prominent size of the pancreas without any demonstrated surrounding inflammatory changes. This may be normal variant or may represent mild acute pancreatitis. Suggest laboratory correlation. 2. Mural thickening of the descending colon and proximal sigmoid colon with adjacent fat infiltration, consistent with flareup of inflammatory colitis. Questionable finding of inflammatory mural thickening of the hepatic flexure of the colon versus artifact of limited distention. 3. Mildly hyperplastic mesenteric lymph nodes in the right lower quadrant of the abdomen, which may represent mesenteric lymphadenitis. 4. Small amount of free fluid in the posterior cul-de-sac of the pelvis, possibly physiologic. Electronically Signed: Aston Gore MD at 5:50 EST , Discharge Plan Triage Chief Complaint: Abd Pain ED Provider: Nikita Fischer Dx/Rx/DC Orders Primary Care Provider: Care Physician,No Primary Referrals: Care Physician,No Primary [Primary Care Provider] -
[2022-04-23 02:40] LABS: Mucous, Urine 0 SEEN /hpf (<or=2+); Red Blood Cells-Urine 0 SEEN /hpf (0-5)
[2022-04-23 02:49] LABS: Color, Urine Yellow (Yellow); Glucose, Dipstick Normal (Normal); Ketone-Dipstick Negative (Negative); Leukocyte Esterase-Dipstick Negative /ul (Negative); Nitrite-Dipstick Negative (Negative); Occult Blood-Urine Negative /ul (Negative); Protein-Dipstick Negative (Negative); Specific Gravity, Urine 1.015 (1.002-1.030); Urine Bilirubin Dipstick Negative (Negative); Urine Clarity Clear (Clear); Urine Urobilinogen Normal (Normal); Urine pH 6.5 (5.0 - 8.0)
[2022-04-23] MEDS: Ondansetron 4 MG/2 ML Vial IV ×3 (02:52→23:02)
[2022-04-23] MEDS: 0.9% Normal Saline 1,000 ML 999 ML IV (02:52)
[2022-04-23] MEDS: Morphine 4 MG/ML Syringe IV ×2 (02:52→07:58)
[2022-04-23 03:01] LABS: Internal QC Validated? YES +Cl - CLEAR BKGD; Pregnancy, Serum, hCG Quali. NEGATIVE Negative
[2022-04-23 03:04] LABS: ALB/GLOB Ratio 0.9 RATIO (0.9-2.4); AST(SGOT) 26 U/L (15-37); Alanine Aminotransfer ALT/SGPT 21 U/L (13-56); Albumin, Serum 3.1 g/dL (3.2-5.0); Alkaline Phosphatase 70 U/L (45-117); Anion Gap 7 (5-15); BUN 8 mg/dL (7-18); BUN/Creat Ratio 12.7 RATIO (10-20); Calcium,Total 8.9 mg/dL (8.5-10.1); Chloride 109 mmol/L (98-107); Creatinine, Serum 0.63 mg/dL (0.55-1.02); EST Glomerular Filtration Rate 121 mL/min (>60); Est Glom Filt Rate - Afr Amer 147 mL/min (>60); Estimated Creatinine Clearance 127.79 ml/min; Globulin 3.6 g/dL (2.2-4.2); Glucose 101 mg/dL (74-106); Lipase 85 U/L (73-393); Potassium 3.5 mmol/L (3.5-5.1); Protein, Total 6.7 g/dL (6.4-8.2); Sodium Level 139 mmol/L (136-145)
[2022-04-23 03:11] LABS: Bacteria 1+ /hpf (None Seen); Squamous Epithelial Cells - UA 0-5 SEEN /hpf (5-10); White Blood Cells 0-5 SEEN /hpf (0-5)
[2022-04-23 03:24] LABS: Absolute Lymphocyte Count 1.88 X10^3/uL (0.83-4.51); Basophil# 0.03 X10^3/uL; Basophil% 0.2 % (0-1); Eosinophil# 0.07 X10^3/uL; Eosinophils% 0.4 % (0-5); Hemoglobin 11.8 g/dL (12.0-15.0); Lymphocyte # 1.88 X10^3/ul (0.83-4.51); Lymphocyte % 11.1 % (19-41); Mean Corp Hgb Conc 32.8 g/dL (32-36); Mean Corpuscular Hgb 31.6 pg (27.0-32.0); Mean Corpuscular Volume 96.3 fL (81-99); Mean Platelet Vol. 9.6 fl (6.2-12.0); Monocyte# 0.89 X10^3/uL; Monocyte% 5.3 % (0-10); NRBC Flagged by Analyzer 0 % (0-5); Neutrophil # 13.98 X10^3/uL (2.7-7.7); Neutrophil % 82.6 % (47-70); Platelet Count 243 K/mm3 (150-450); RBC Distribution Width CV 12.4 % (11.6-14.6); RBC Distribution Width SD 44.2 fl (35.1-43.9); Red Blood Count 3.74 M/mm3 (4.2-5.4); White Blood Count 16.9 K/mm3 (4.4-11.0)
--- NOTE | 2022-04-23 03:54 | CT_ITS ---
EXAM: CT ABDOMEN AND PELVIS WITH INTRAVENOUS CONTRAST CLINICAL INDICATION: abdominal pain abdominal pain. History of chronic ulcerative colitis. Vomiting. TECHNIQUE: Helically acquired images were obtained of the abdomen and pelvis with intravenous contrast. This CT exam was performed using one or more of the following dose reduction techniques: automated exposure control, adjustment of the mA and/or kV according to patient size, and/or use of iterative reconstruction technique. This report was created using Tern report generation technology. CONTRAST: IV 100mL [id number]-[id number] RADIATION DOSE: CTDIvol = 11.75 mGy, DLP = 357.82 mGy-cm COMPARISON: None. FINDINGS: LOWER THORAX: There is a 5 mm pleural-based pulmonary nodule along the right horizontal fissure. Fleischner Society Guidelines suggest no follow-up is necessary for patients with low or high risk of malignancy. No cardiomegaly. No significant pericardial effusion. ABDOMEN: LIVER: Unremarkable. Homogeneous. No focal mass. GALLBLADDER AND BILE DUCTS: Unremarkable. No calcified gallstones. No gallbladder distention or wall edema. No intra- or extrahepatic biliary ductal dilation. PANCREAS: The pancreas is prominent in size. There is no visualized surrounding fat infiltration, pseudocyst formation, or ductal dilatation. Prominent size of the pancreas may be a normal variant or may represent mild acute pancreatitis. SPLEEN: Unremarkable. Normal size without focal cystic or solid mass. ADRENALS: Unremarkable. No nodules. KIDNEYS AND URETERS: Unremarkable. Normal renal size and position. No hydronephrosis. STOMACH AND BOWEL: There is mural thickening of the descending colon and proximal sigmoid colon, consistent with inflammatory colitis. There is also some adjacent fat infiltration. There is apparent mural thickening of the hepatic flexure of the colon which may be an artifact of limited distention or also may represent active inflammation. PELVIS: APPENDIX: The appendix is not successfully identified. There is no evidence for acute appendicitis. BLADDER: Unremarkable. REPRODUCTIVE: Unremarkable as visualized. No mass. ABDOMEN and PELVIS: INTRAPERITONEAL SPACE: There is a small amount of free fluid in the posterior cul-de-sac of the pelvis. No free air. BONES/JOINTS: Unremarkable. No suspicious lytic or blastic abnormality. SOFT TISSUES: Unremarkable. No discrete abdominal or pelvic wall hernia. VASCULATURE: Unremarkable. Abdominal aorta is non-dilated. LYMPH NODES: There are mildly hyperplastic mesenteric lymph nodes in the right lower quadrant of the abdomen with short axis diameters ranging up to [address]/Abdomen/Pelvis W IV Cont ONLY IMPRESSION: 1. Prominent size of the pancreas without any demonstrated surrounding inflammatory changes. This may be normal variant or may represent mild acute pancreatitis. Suggest laboratory correlation. 2. Mural thickening of the descending colon and proximal sigmoid colon with adjacent fat infiltration, consistent with flareup of inflammatory colitis. Questionable finding of inflammatory mural thickening of the hepatic flexure of the colon versus artifact of limited distention. 3. Mildly hyperplastic mesenteric lymph nodes in the right lower quadrant of the abdomen, which may represent mesenteric lymphadenitis. 4. Small amount of free fluid in the posterior cul-de-sac of the pelvis, possibly physiologic. Electronically Signed: Aston Gore MD at 5:50 EST ,
--- NOTE | 2022-04-23 07:45 | PCM.HP.STD ---
HPI - General General Date of Admission: 04/23/22 Date of Service: 04/23/22 Chief Complaint: Abdominal pain HPI Narrative GRANT WEINBERG, is a 26 F who presented to the emergency department at [facility] on 04/23/2022 with abdominal pain and hematochezia. Patient reports back in 2014 she had a similar episode and had a sigmoidoscopy at which time she was told she had ulcerative colitis. Biopsy results at that time showed colitis but not specific. She never had any follow-up and never been on any medications for UC. She is never had a colonoscopy. She states she has had intermittent issues since 2014 with this but reports that they typically improve when she limits her diet to clears for several days. She states this episode has been ongoing for 2 weeks and has not resolved and continues to get worse so she presented to emergency department. She reports associated nausea, vomiting, and diarrhea. She reported she felt that she vomited feces this morning. Vital signs at presentation demonstrated temperature of 97.1, heart rate of 101, blood pressure 113/75, respiratory rate of 18, pulse ox 97% room air. CBC showed a leukocytosis at 16.9 with a left shift of 82.6% neutrophilia. Her hemoglobin was 11.8. Hemoglobin on previous lab draw from September 2021 was 13.1 and it appears that her baseline is between 13 and 14. Lately count was normal. Her chemistry panel was unremarkable. UA was unremarkable. test was negative. CT of her abdomen pelvis demonstrated prominent pancreas without any surrounding inflammatory changes, mural thickening of the descending colon, proximal sigmoid colon and adjacent fat infiltration consistent with flareup of inflammatory colitis, there is also questionable inflammatory mural thickening at the hepatic flexure, mildly hyperplastic mesenteric lymph nodes and a small amount of free fluid in the posterior cul-de-sac of the pelvis. In the emergency department she was treated with IV fluids, pain medication, and was given 1 dose of Zosyn. [facility] Medical History (Updated 04/23/22 @ 08:[address] Laney Delgadillo, ) COVID-19 Marijuana use Tobacco abuse Ulcerative colitis Allergy/AdvReac Type Severity Reaction Status Date / Time bee venom protein (honey bee) Allergy Swelling Verified 04/23/22 02:12 codeine Allergy Hives Verified 04/23/22 02:12 no significant family history Surgical History Hx of tonsillectomy Social History (Updated 04/23/22 @ 08:[address] Laney Delgadillo DO) household members: family housing: house Smoking Status: Current every day smoker tobacco type: cigarettes Smoking packs per day: 1 Smoking cigarettes per day: 20.0 alcohol intake: never substance use type: marijuana ROS Constitutional Constitutional: Reports anorexia; Denies change in weight, chills, fatigue, fever(s), malaise, night sweats, weakness or other Eyes Eyes: Denies blurry vision, change in eye color, change in vision, discharge from eye(s), double vision, erythema, eye pain, loss of vision or other ENT HEENT: Denies abnormal hearing, dysphagia, ear pain, epistaxis, headache(s), hearing loss, nasal congestion, nasal discharge, post nasal drip, sinus pressure, sore throat or other Cardiovascular Cardiovascular: Denies chest pain, claudication, dyspnea on exertion, edema, lightheadedness, orthopnea, palpitations, paroxysmal nocturnal dyspnea, rapid heart rate, syncope or other Respiratory/Chest Respiratory/Chest: Denies cough, dyspnea, excessive phlegm production, hemoptysis, productive cough, shortness of breath at rest, shortness of breath with exertion, wheezing or other Gastrointestinal Gastrointestinal: Reports abdominal pain, diarrhea, hematochezia, nausea and vomiting; Denies coffee ground emesis, constipation, dyspepsia, hematemesis, loose stools, melena or other Genitourinary Genitourinary: Denies burning urination, difficulty urinating, dysuria, hematuria, nocturia, urinary frequency, urinary hesitancy, urinary incontinence, urinary urgency or other Musculoskeletal Musculoskeletal: Denies arthralgias, back pain, joint pain, joint stiffness, joint swelling, myalgias, neck pain or other Neurologic Neurologic: Denies abnormal gait, abnormal speech, confusion, disequilibrium, dizziness, focal weakness, headache(s), numbness, paresthesias, seizure-like activity, seizures, syncope, tingling, tremor(s) or other Psychiatric Psychiatric: Denies anxiety, depression, homicidal ideation, suicidal ideation or other Endocrine Endocrinology: Denies change in body appearance, cold intolerance, excessive sweating, heat intolerance, polydipsia, polyuria or other Hematologic/Lymphatic Hematologic/Lymphatic: Denies anemia, easy bleeding, easy bruising, lymphadenopathy or other Allergic/Immunologic Allergic/Immunologic: Denies rhinitis, hives, eczemia, asthma or other Vital Signs Vital Signs Vital Signs: 04/23/22 01:56 04/23/22 02:10 04/23/22 04:01 Temperature 97.1 F L 97.8 F Temperature Source Temporal Temporal Pulse Rate 101 H 99 Pulse Rate [Standing (for 1 minute prior to obtaining)] 70 Respiratory Rate 18 18 Blood Pressure 113/75 113/75 Blood Pressure [Lying] 96/64 Blood Pressure [Sitting (for 1 minute prior to obtaining)] 100/62 Blood Pressure [Standing (for 1 minute prior to obtaining)] 108/64 Blood Pressure Mean 87 87 Blood Pressure Mean [Lying] 74 Blood Pressure Mean [Sitting (for 1 minute prior to obtaining)] 74 Blood Pressure Mean [Standing (for 1 minute prior to obtaining)] 78 Pulse Ox 97 97 Oxygen Delivery Method Room Air Room Air 04/23/22 04:02 04/23/22 04:03 04/23/22 06:23 Temperature 98.4 F Temperature Source Temporal Pulse Rate 74 Pulse Rate [Standing (for 1 minute prior to obtaining)] Respiratory Rate 12 Blood Pressure 108/64 108/64 104/66 Blood Pressure [Lying] Blood Pressure [Sitting (for 1 minute prior to obtaining)] Blood Pressure [Standing (for 1 minute prior to obtaining)] Blood Pressure Mean 78 78 78 Blood Pressure Mean [Lying] Blood Pressure Mean [Sitting (for 1 minute prior to obtaining)] Blood Pressure Mean [Standing (for 1 minute prior to obtaining)] Pulse Ox 99 Oxygen Delivery Method Room Air Weight Weight: 60.6 kg Body Mass Index (BMI) 21.5 Physical Exam Const alert, oriented x3, no apparent distress and average body habitus Constitutional Narrative: Young white female, sitting up in bed, mother at side at bedside, appears nontoxic, currently comfortable but does demonstrate some discomfort with movement in bed and her abdomen General Appearance: cooperative HEENT normocephalic, head/scalp atraumatic, hearing grossly normal bilaterally and moist oral mucous membranes HEENT Narrative: Mallampati 1, no thrush Eyes PERRL, EOMs intact bilaterally and conjunctivae normal Eyes Narrative: No scleral icterus Neck no lymphadenopathy, supple, no JVD and no carotid bruits Neck Narrative: Trachea midline, no thyroid enlargement or nodularity Resp normal respiratory effort, no retractions, no use of accessory muscles and clear to auscultation bilaterally Auscultation: Negative for crackles, rhonchi or wheezes Cardio regular rate, regular rhythm, S1 normal heart sound, S2 normal heart sound, no murmurs, no rub, no gallops and no clicks GI GI Narrative: Diffuse abdominal tenderness with increased tenderness noted on the left upper and lower quadrants and across to midline inferiorly, no distention, bowel sounds are normoactive, soft Extremity no clubbing, cyanosis or edema Extremity Narrative: 2+ pedal pulses, 2+ radial pulses Neuro oriented x3, CN's II-XII intact bilaterally, moves all extremities and no focal motor deficits Sensorium / Orientation: awake, alert, oriented to person, oriented to place and oriented to time Speech: speech normal Motor Exam: strength 5/5 throughout Psych affect normal Psych Narrative: Very pleasant, appropriately interactive Results Lab / Micro Data Attestation: I reviewed the patient's lab results. Result Diagrams: 04/23/22 03:15 04/23/22 02:25 Labs: Laboratory Results - last 24 hr 04/23/22 02:25: WBC Cancelled, Corrected WBC Cancelled, RBC Cancelled, Hgb Cancelled, Hct Cancelled, MCV Cancelled, MCH Cancelled, MCHC Cancelled, RDW Std Deviation Cancelled, RDW Coeff of Renetta Cancelled, Plt Count Cancelled, MPV Cancelled, Immature Gran % (Auto) Cancelled, Neut % (Auto) Cancelled, Lymph % (Auto) Cancelled, Dixon % (Auto) Cancelled, Eos % (Auto) Cancelled, Baso % (Auto) Cancelled, Absolute Neuts (auto) Cancelled, Absolute Lymphs (auto) Cancelled, Total Counted Cancelled, Neutrophils % (Manual) Cancelled, Band Neutrophils % Cancelled, Lymphocytes % (Manual) Cancelled, Monocytes % (Manual) Cancelled, Eosinophils % (Manual) Cancelled, Basophils % (Manual) Cancelled, Metamyelocytes % Cancelled, Myelocytes % Cancelled, Promyelocytes % Cancelled, Blast Cells % Cancelled, Plasma Cell % (Manual) Cancelled, Other Cells % Cancelled, Nucleated RBC % Cancelled, Nucleated RBCs/100 WBC Cancelled, Differential Comment Cancelled, Diff Path Review Cancelled, Hypersegmented Neuts Cancelled, Atypical Lymphocytes Cancelled, Reactive Lymphocytes Cancelled, Smudge Cells Cancelled, Toxic Granulation Cancelled, Toxic Vacuolation Cancelled, Dohle Bodies Cancelled, Elena Rods Cancelled, Platelet Estimate Cancelled, Plt Morphology Comment Cancelled, RBC Morphology Cancelled, Polychromasia Cancelled, Hypochromasia Cancelled, Poikilocytosis Cancelled, Basophilic Stippling Cancelled, Anisocytosis Cancelled, Microcytosis Cancelled, Macrocytosis Cancelled, Spherocytes Cancelled, Sickle Cells Cancelled, Target Cells Cancelled, Tear Drop Cells Cancelled, Ovalocytes Cancelled, Stomatocytes Cancelled, [place] Bodies Cancelled, Ld Cells Cancelled, Bite Cells Cancelled, Crenated Cell Cancelled, Acanthocytes (Spur) Cancelled, Rouleaux Cancelled, Schistocytes Cancelled 04/23/22 02:25: Sodium 139, Potassium 3.5, Chloride 109 H, Carbon Dioxide 23.0, Anion Gap 7, BUN 8, Creatinine 0.63, Estim Creat Clear Calc 127.79, Est GFR (MDRD) Af Amer 147, Est GFR (MDRD) Non-Af 121, BUN/Creatinine Ratio 12.7, Glucose 101, Calcium 8.9, Total Bilirubin 0.50, AST 26, ALT 21, Alkaline Phosphatase 70, Total Protein 6.7, Albumin 3.1 L, Globulin 3.6, Albumin/Globulin Ratio 0.9, Lipase 85 04/23/22 02:25: Serum , Qual NEGATIVE 04/23/22 02:25: Urine Color Yellow, Urine Clarity Clear, Urine pH 6.5, Ur Specific [place] 1.015, Urine Protein Negative, Urine Glucose (UA) Normal, Urine Ketones Negative, Urine Occult Blood Negative, Urine Nitrite Negative, Urine Bilirubin Negative, Urine Urobilinogen Normal, Ur Leukocyte Esterase Negative, Urine RBC 0 SEEN, Urine WBC 0-5 SEEN, Ur Squamous Epith Cells 0-5 SEEN, Urine Bacteria 1+, Urine Mucus 0 SEEN 04/23/22 03:15: WBC 16.9 H, RBC 3.74 L, Hgb 11.8 L, Hct 36.0 L, MCV 96.3, MCH 31.6, MCHC 32.8, RDW Std Deviation 44.2 H, RDW Coeff of Renetta 12.4, Plt Count 243, MPV 9.6, Immature Gran % (Auto) 0.400, Neut % (Auto) 82.6 H, Lymph % (Auto) 11.1 L, Dixon % (Auto) 5.3, Eos % (Auto) 0.4, Baso % (Auto) 0.2, Absolute Neuts (auto) 14.0 H, Absolute Lymphs (auto) 1.88, Nucleated RBC % 0 Micro: Microbiology 04/23/22 02:25 Stool Stool Occult Blood (MIRIAN) - Final Occult Blood Positive Radiology Impression Abdomen/Pelvis CT 04/23/22 03:54 IMPRESSION: 1. Prominent size of the pancreas without any demonstrated surrounding inflammatory changes. This may be normal variant or may represent mild acute pancreatitis. Suggest laboratory correlation. 2. Mural thickening of the descending colon and proximal sigmoid colon with adjacent fat infiltration, consistent with flareup of inflammatory colitis. Questionable finding of inflammatory mural thickening of the hepatic flexure of the colon versus artifact of limited distention. 3. Mildly hyperplastic mesenteric lymph nodes in the right lower quadrant of the abdomen, which may represent mesenteric lymphadenitis. 4. Small amount of free fluid in the posterior cul-de-sac of the pelvis, possibly physiologic. Electronically Signed: Aston Gore MD at 5:50 EST Reading Location ID and State: [facility] / [place] , Service support , Assessment & Plan Assessment/Plan (1) Abdominal pain: (2) Rectal bleeding: (3) Leukocytosis: (4) Anemia: PLAN: Plan Abdominal pain/rectal bleeding -Patient reports that she was diagnosed with ulcerative colitis previously -Appears that she had a flexible sigmoidoscopy done in 2014 that showed colitis -Patient has never been on previous treatment -Is having diffuse crampy abdominal pain with rectal bleeding -Likely need for colonoscopy with biopsies -Start Zosyn -IV fluids with LR at 100 cc/h -N.p.o. -IV pain medications -IV antiemetics -Consult GI Acute anemia -Baseline hemoglobin appears to be between 13 and 14 -Was anemic back in 2014 when diagnosed -Current hemoglobin 11.8 -Check iron studies -Check ferritin -Check reticulocyte count -GI consultation as above Leukocytosis -Likely secondary to acute colitis -Zosyn -Repeat CBC in a.m. Tobacco abuse -Patient currently smoking 1 pack of cigarettes daily -Has a desire to quit -Will order nicotine patch 21 mcg Marijuana use -Patient states she uses for pain control on her abdomen -Recommend cessation DVT prophylaxis -SCDs -No chemoprophylaxis with rectal bleeding CODE STATUS Full Code Charges/Coding Visit Charges Inpatient E&M: 96663 Init Hosp L2
[2022-04-23 08:08] LABS: Platelet Count 247 K/mm3 (150-450); RET-HE 34.5 pg (30-35); Reticulocyte Count 1.43 % (0.5-1.5)
[2022-04-23 08:21] LABS: Ferritin 46 ng/mL (8-252); Iron 37 ug/dL (50-170); Iron Binding Capacity,Total 295 ug/dL (250-450); PERCENT IRON SATURATION 12.5 % (15.0-55.0)
[2022-04-23] MEDS: Lactated Ringers 1,000 ML 100 ML IV ×2 (09:06→18:37)
[2022-04-23] MEDS: HYDROmorphone 0.5 MG/0.5 ML SYRINGE IV ×3 (13:35→23:06)
[2022-04-23] MEDS: 0.9% Saline Lock 10 ML Syringe IV ×3 (13:46→23:10)
--- NOTE | 2022-04-23 17:34 | EX.PCM.CON.G ---
HPI Consult Data Date of Consult: 04/23/22 HPI Narrative Reason for Consultation: Lower GI bleeding HPI Narrative: GRANT WEINBERG, is a 26 F who presents to the ER with worsening abdominal pain, cramping, nausea, vomiting, diarrhea and hematochezia. Apparently she had an initial presentation that was similar at the age of 19 with abdominal pain cramping and lower GI bleeding. At the time she underwent a flexible sigmoidoscopy was diagnosed with ulcerative colitis. She did not follow-up because she had not been having many symptoms and if she had an occasional flare she would take steroids and will get better. However over the last 2 weeks she has been having worsening nausea, vomiting and diarrhea and progressed to lower GI bleeding that started approximately 5 days ago. Biochemical profile in the ED did show an elevated white blood cell count of 16.9, hemoglobin 11.6, platelet count of 252. She had a CT scan abdomen pelvis that it displayed: 1.? Prominent size of the pancreas without any demonstrated surrounding inflammatory changes. This may be normal variant or may represent mild acute pancreatitis. Suggest laboratory correlation. ? 2.? Mural thickening of the descending colon and proximal sigmoid colon with adjacent fat infiltration, consistent with flareup of inflammatory colitis. Questionable finding of inflammatory mural thickening of the hepatic flexure of the colon versus artifact of limited distention. ? 3.? Mildly hyperplastic mesenteric lymph nodes in the right lower quadrant of the abdomen, which may represent mesenteric lymphadenitis. ? 4.? Small amount of free fluid in the posterior cul-de-sac of the pelvis, possibly physiologic. She does not drink any alcohol. She does admit to marijuana but no street drugs. She also admits to smoking cigarettes. She was started on IV antibiotics in the ED. [facility] Medical History (Updated 04/23/22 @ 17:[address] Bey Friend, DO) COVID-19 Marijuana use Tobacco abuse Ulcerative colitis Allergy/AdvReac Type Severity Reaction Status Date / Time bee venom protein (honey bee) Allergy Swelling Verified 04/23/22 09:12 codeine Allergy Hives Verified 04/23/22 09:12 Family History no significant family his Surgical History Hx of tonsillectomy Social History (Updated 04/23/22 @ 08:[address] Laney Delgadillo DO) household members: family housing: house Smoking Status: Current every day smoker tobacco type: cigarettes alcohol intake: never substance use type: marijuana ROS Constitutional Constitutional: Reports anorexia; Denies change in weight, chills, fatigue, fever(s), malaise, night sweats, weakness or other Eyes Eyes: Denies blurry vision, change in eye color, change in vision, discharge from eye(s), double vision, erythema, eye pain, loss of vision or other ENT HEENT: Denies abnormal hearing, dysphagia, ear pain, epistaxis, headache(s), hearing loss, nasal congestion, nasal discharge, post nasal drip, sinus pressure, sore throat or other Cardiovascular Cardiovascular: Denies chest pain, claudication, dyspnea on exertion, edema, lightheadedness, orthopnea, palpitations, paroxysmal nocturnal dyspnea, rapid heart rate, syncope or other Respiratory/Chest Respiratory/Chest: Denies cough, dyspnea, excessive phlegm production, hemoptysis, productive cough, shortness of breath at rest, shortness of breath with exertion, wheezing or other Gastrointestinal Gastrointestinal: Reports abdominal pain, diarrhea, hematochezia, nausea and vomiting; Denies coffee ground emesis, constipation, dyspepsia, hematemesis, loose stools, melena or other Genitourinary Genitourinary: Denies burning urination, difficulty urinating, dysuria, hematuria, nocturia, urinary frequency, urinary hesitancy, urinary incontinence, urinary urgency or other Musculoskeletal Musculoskeletal: Denies arthralgias, back pain, joint pain, joint stiffness, joint swelling, myalgias, neck pain or other Neurologic Neurologic: Denies abnormal gait, abnormal speech, confusion, disequilibrium, dizziness, focal weakness, headache(s), numbness, paresthesias, seizure-like activity, seizures, syncope, tingling, tremor(s) or other Psychiatric Psychiatric: Denies anxiety, depression, homicidal ideation, suicidal ideation or other Endocrine Endocrinology: Denies change in body appearance, cold intolerance, excessive sweating, heat intolerance, polydipsia, polyuria or other Hematologic/Lymphatic Hematologic/Lymphatic: Denies anemia, easy bleeding, easy bruising, lymphadenopathy or other Allergic/Immunologic Allergic/Immunologic: Denies rhinitis, hives, eczemia, asthma or other Physical Exam Const alert, oriented x3, no apparent distress and average body habitus General Appearance: cooperative HEENT normocephalic, head/scalp atraumatic, hearing grossly normal bilaterally and moist oral mucous membranes HEENT Narrative: Mallampati 1, no thrush Eyes PERRL, EOMs intact bilaterally and conjunctivae normal Eyes Narrative: No scleral icterus Neck no lymphadenopathy, supple, no JVD and no carotid bruits Neck Narrative: Trachea midline, no thyroid enlargement or nodularity Resp normal respiratory effort, no retractions, no use of accessory muscles and clear to auscultation bilaterally Auscultation: Negative for crackles, rhonchi or wheezes Cardio regular rate, regular rhythm, S1 normal heart sound, S2 normal heart sound, no murmurs, no rub, no gallops and no clicks GI GI Narrative: Diffuse abdominal tenderness with increased tenderness noted on the left upper and lower quadrants and across to midline inferiorly, no distention, bowel sounds are normoactive, soft Extremity no clubbing, cyanosis or edema Extremity Narrative: 2+ pedal pulses, 2+ radial pulses Neuro oriented x3, CN's II-XII intact bilaterally, moves all extremities and no focal motor deficits Sensorium / Orientation: awake, alert, oriented to person, oriented to place and oriented to time Speech: speech normal Motor Exam: strength 5/5 throughout Psych affect normal Psych Narrative: Very pleasant, appropriately interactive Lab / Micro Data Result Diagrams: 04/23/22 03:15 04/23/22 02:25 Labs: Laboratory Results - last 24 hr 04/23/22 02:25: WBC Cancelled, Corrected WBC Cancelled, RBC Cancelled, Hgb Cancelled, Hct Cancelled, MCV Cancelled, MCH Cancelled, MCHC Cancelled, RDW Std Deviation Cancelled, RDW Coeff of Renetta Cancelled, Plt Count Cancelled, MPV Cancelled, Immature Gran % (Auto) Cancelled, Neut % (Auto) Cancelled, Lymph % (Auto) Cancelled, Esmeralda % (Auto) Cancelled, Eos % (Auto) Cancelled, Baso % (Auto) Cancelled, Absolute Neuts (auto) Cancelled, Absolute Lymphs (auto) Cancelled, Total Counted Cancelled, Neutrophils % (Manual) Cancelled, Band Neutrophils % Cancelled, Lymphocytes % (Manual) Cancelled, Monocytes % (Manual) Cancelled, Eosinophils % (Manual) Cancelled, Basophils % (Manual) Cancelled, Metamyelocytes % Cancelled, Myelocytes % Cancelled, Promyelocytes % Cancelled, Blast Cells % Cancelled, Plasma Cell % (Manual) Cancelled, Other Cells % Cancelled, Nucleated RBC % Cancelled, Nucleated RBCs/100 WBC Cancelled, Differential Comment Cancelled, Diff Path Review Cancelled, Hypersegmented Neuts Cancelled, Atypical Lymphocytes Cancelled, Reactive Lymphocytes Cancelled, Smudge Cells Cancelled, Toxic Granulation Cancelled, Toxic Vacuolation Cancelled, Dohle Bodies Cancelled, Elena Rods Cancelled, Platelet Estimate Cancelled, Plt Morphology Comment Cancelled, RBC Morphology Cancelled, Polychromasia Cancelled, Hypochromasia Cancelled, Poikilocytosis Cancelled, Basophilic Stippling Cancelled, Anisocytosis Cancelled, Microcytosis Cancelled, Macrocytosis Cancelled, Spherocytes Cancelled, Sickle Cells Cancelled, Target Cells Cancelled, Tear Drop Cells Cancelled, Ovalocytes Cancelled, Stomatocytes Cancelled, [place] Bodies Cancelled, Ld Cells Cancelled, Bite Cells Cancelled, Crenated Cell Cancelled, Acanthocytes (Spur) Cancelled, Rouleaux Cancelled, Schistocytes Cancelled 04/23/22 02:25: Sodium 139, Potassium 3.5, Chloride 109 H, Carbon Dioxide 23.0, Anion Gap 7, BUN 8, Creatinine 0.63, Estim Creat Clear Calc 127.79, Est GFR (MDRD) Af Amer 147, Est GFR (MDRD) Non-Af 121, BUN/Creatinine Ratio 12.7, Glucose 101, Calcium 8.9, Total Bilirubin 0.50, AST 26, ALT 21, Alkaline Phosphatase 70, Total Protein 6.7, Albumin 3.1 L, Globulin 3.6, Albumin/Globulin Ratio 0.9, Lipase 85 04/23/22 02:25: Serum , Qual NEGATIVE 04/23/22 02:25: Urine Color Yellow, Urine Clarity Clear, Urine pH 6.5, Ur Specific [place] 1.015, Urine Protein Negative, Urine Glucose (UA) Normal, Urine Ketones Negative, Urine Occult Blood Negative, Urine Nitrite Negative, Urine Bilirubin Negative, Urine Urobilinogen Normal, Ur Leukocyte Esterase Negative, Urine RBC 0 SEEN, Urine WBC 0-5 SEEN, Ur Squamous Epith Cells 0-5 SEEN, Urine Bacteria 1+, Urine Mucus 0 SEEN 04/23/22 03:15: WBC 16.9 H, RBC 3.74 L, Hgb 11.8 L, Hct 36.0 L, MCV 96.3, MCH 31.6, MCHC 32.8, RDW Std Deviation 44.2 H, RDW Coeff of Renetta 12.4, Plt Count 243, MPV 9.6, Immature Gran % (Auto) 0.400, Neut % (Auto) 82.6 H, Lymph % (Auto) 11.1 L, Esmeralda % (Auto) 5.3, Eos % (Auto) 0.4, Baso % (Auto) 0.2, Absolute Neuts (auto) 14.0 H, Absolute Lymphs (auto) 1.88, Nucleated RBC % 0 04/23/22 03:15: Retic Count 1.43, Immature Retic Fraction 10.00, Retic Hgb Equivalent 34.5 04/23/22 03:15: Iron 37 L, TIBC 295, Iron Saturation 12.5 L, Ferritin 46 04/23/22 09:09: Blood Type A POSITIVE, Antibody Screen NEGATIVE Micro: Microbiology 04/23/22 10:27 Stool C. difficile DNA Amplification - Final 04/23/22 02:25 Stool Stool Occult Blood (MIRIAN) - Final Occult Blood Positive Radiology Impression Abdomen/Pelvis CT 04/23/22 03:54 IMPRESSION: 1. Prominent size of the pancreas without any demonstrated surrounding inflammatory changes. This may be normal variant or may represent mild acute pancreatitis. Suggest laboratory correlation. 2. Mural thickening of the descending colon and proximal sigmoid colon with adjacent fat infiltration, consistent with flareup of inflammatory colitis. Questionable finding of inflammatory mural thickening of the hepatic flexure of the colon versus artifact of limited distention. 3. Mildly hyperplastic mesenteric lymph nodes in the right lower quadrant of the abdomen, which may represent mesenteric lymphadenitis. 4. Small amount of free fluid in the posterior cul-de-sac of the pelvis, possibly physiologic. Electronically Signed: Aston Gore MD at 5:50 EST , Assessment & Plan Assessment/Plan (1) Enlarged pancreas: PLAN: Unsure the etiology of her large pancreas. She does not exhibit any signs or symptoms of autoimmune pancreatitis. She does not drink any alcohol. Typically also colitis does not involve the pancreas. I will check an IgG4 level, CALISTA, serum gammaglobulins for autoimmune pancreatitis. (2) Abdominal pain: PLAN: Abdominal pain likely secondary to ulcerative colitis flare. She will need to undergo colonoscopy to with evaluation of the lower GI tract for staging purposes. (3) Rectal bleeding: PLAN: Rectal bleeding likely secondary to ulcerative colitis (4) Leukocytosis: PLAN: . Leukocytosis likely secondary to leukemoid reaction. However I do agree with continued antibiotics at this time. (5) Anemia: PLAN: Anemia likely secondary to GI bleed. She does not seem to have active GI bleed at this time. We will know more after she undergoes colonoscopy. Charges/Coding Visit Charges Inpatient E&M: 29877 Init Hosp L3
[2022-04-23] MEDS: Polyethylene Glycol 3350 BOWEL PREP PO (18:25)
[2022-04-24] VITALS (12 sets, daily range): BP systolic 90–116; BP diastolic 52–82; PULSE 88–102; RESP 16–100; TEMP 36.9–38; O2SAT 93–100; BMI 21.7
[2022-04-24] MEDS: 0.9% Saline Lock 10 ML Syringe IV ×4 (04:11→23:28)
[2022-04-24] MEDS: proCHLORPERazine 10 MG/2 ML Vial 5 MG IV (04:11)
[2022-04-24] MEDS: Lactated Ringers 1,000 ML 100 ML IV (04:15)
[2022-04-24] MEDS: Bisacodyl 5 MG Tablet 20 MG PO (04:24)
[2022-04-24 05:49] LABS: Absolute Lymphocyte Count 1.86 X10^3/uL (0.83-4.51); Basophil# 0.04 X10^3/uL; Basophil% 0.2 % (0-1); Eosinophil# 0.06 X10^3/uL; Eosinophils% 0.4 % (0-5); Hematocrit 33.7 % (37-47); Hemoglobin 11.1 g/dL (12.0-15.0); Lymphocyte # 1.86 X10^3/ul (0.83-4.51); Lymphocyte % 11.5 % (19-41); Mean Corp Hgb Conc 32.9 g/dL (32-36); Mean Corpuscular Hgb 31.9 pg (27.0-32.0); Mean Corpuscular Volume 96.8 fL (81-99); Mean Platelet Vol. 9.8 fl (6.2-12.0); Monocyte# 1.14 X10^3/uL; NRBC Flagged by Analyzer 0 % (0-5); Neutrophil # 13.02 X10^3/uL (2.7-7.7); Neutrophil % 80.5 % (47-70); Platelet Count 236 K/mm3 (150-450); RBC Distribution Width CV 12.3 % (11.6-14.6); Red Blood Count 3.48 M/mm3 (4.2-5.4); White Blood Count 16.2 K/mm3 (4.4-11.0)
[2022-04-24 06:40] LABS: ALB/GLOB Ratio 0.8 RATIO (0.9-2.4); AST(SGOT) 15 U/L (15-37); Alanine Aminotransfer ALT/SGPT 16 U/L (13-56); Albumin, Serum 2.5 g/dL (3.2-5.0); Alkaline Phosphatase 60 U/L (45-117); Anion Gap 8 (5-15); BUN 6 mg/dL (7-18); BUN/Creat Ratio 7.7 RATIO (10-20); Calcium,Total 8.3 mg/dL (8.5-10.1); Chloride 107 mmol/L (98-107); Creatinine, Serum 0.78 mg/dL (0.55-1.02); EST Glomerular Filtration Rate 95 mL/min (>60); Est Glom Filt Rate - Afr Amer 115 mL/min (>60); Estimated Creatinine Clearance 103.22 ml/min; Globulin 3.2 g/dL (2.2-4.2); Glucose 158 mg/dL (74-106); Phosphorus 2.9 mg/dL (2.5-4.9); Protein, Total 5.7 g/dL (6.4-8.2); Sodium Level 139 mmol/L (136-145)
--- NOTE | 2022-04-24 09:08 | NURSING ---
2nd tap water enema given as ordered. pt tolerated well.
[2022-04-24] MEDS: Potassium Chloride Oral Tablet 20 MEQ 60 MEQ PO (10:38)
[2022-04-24] MEDS: Ondansetron 4 MG/2 ML Vial IV (12:41)
[2022-04-24] MEDS: HYDROmorphone 0.5 MG/0.5 ML SYRINGE IV (12:41)
--- NOTE | 2022-04-24 13:01 | NURSING ---
3rd enema given as with green liquids stool with large flecks. pt tolerate well.
--- NOTE | 2022-04-24 14:16 | CPS ---
PT WAS IN RESTROOM, HAVING RECTAL BLEEDING X2 I.S NOT DONE.
--- NOTE | 2022-04-24 14:50 | CASEMGMT ---
RN?CM?COURT OPERATIONS CLERK?CM?to room to meet with patient for initial transition planning/care coordination?assessment.?RN?CM?introduced self and role at [facility].? Pt voices understanding and consents to?assessment?at this time.? Pt resting in bed in no distress at this time.?Father @ bedside and pt agreeable to him being present during assessment. Pt is A/O at this time and answers all questions appropriately.?? Care providers, pharmacy, and demographics verified/updated at this time. PCP: No PCP Specialists: none Preferred Pharmacy: [facility] Retail Insurance: no insurance/self-pay, BETSEY, Yuliya, aware. Prescription Benefit:? none Living Will/HPOA:?Pt does not currently have LW/HCPOA . Pt made aware that she can contact if she decides she would like to talk with someone about this or would like to utilize [facility] social work for advanced directive completion.? LNOK: parents. Julissa and Kenan Mcnally Living Arrangements: Lives alone in mobile home w/2 steps to enter. Independent. Transportation:?Pt states drives self and states no transportation concerns at this time.? DME: ? Denies using any DME and denies needs.? HHC/SNF: No hx of either. No needs identified. Pt wishes to return home and states has no concerns with going home at time of discharge.? Pt states she has been smoking since age 13. She states she is trying to quit and has been cutting back on them. Currently she smokes 1/2 PPD. + marijuana use per H/P. She drinks ETOH on rare occasion. CM?to follow for any discharge planning/needs.? Pt voices no concerns/needs at this time.? Advised pt to ask for?CM?if any questions/concerns/needs arise.? Voices understanding. PLAN:??Home. No Rx coverage. Follow for cost of meds @ d/c. SW to see for Self-pay and no PCP. Rasheed CALLESN?RN?CM
[2022-04-24] MEDS: Lactated Ringers 1,000 ML 15 ML IV (15:15)
--- NOTE | 2022-04-24 15:25 | PCM.PN.HOSP ---
Reason for Visit Reason for Visit: Abdominal pain/rectal bleeding Subjective Subjective Patient states overall she is feeling much better today. She states she feels the best she has in a couple of days. Is still using some IV Dilaudid however much improved. No more significant rectal bleeding. Plan is for colonoscopy this afternoon. Objective Data Objective Data Vital Signs: Vital Signs Temp Pulse Resp BP Pulse Ox O2 Del Method 99.0 F 96 18 111/68 97 Room Air 04/24/22 13:59 04/24/22 13:59 04/24/22 13:59 04/24/22 13:59 04/24/22 13:59 04/24/22 13:59 Oxygen Delivery Method Room Air Weight: 61.054 kg Body Mass Index (BMI) 21.7 Intake & Output: Intake and Output for Last 24 Hours 04/22/22 04/23/22 04/24/22 23:59 23:59 23:59 Intake Total 2461.66 / 2461.66 1313.33 / 1313.33 Output Total 2750 / 2750 Balance 2461.66 / 2461.66 -1436.67 / -1436.67 Lab / Micro Data Result Diagrams: 04/24/22 05:30 04/24/22 05:30 Labs: Laboratory Results - last 24 hr 04/24/22 05:30: WBC 16.2 H, RBC 3.48 L, Hgb 11.1 L, Hct 33.7 L, MCV 96.8, MCH 31.9, MCHC 32.9, RDW Std Deviation 44.0 H, RDW Coeff of Renetta 12.3, Plt Count 236, MPV 9.8, Immature Gran % (Auto) 0.400, Neut % (Auto) 80.5 H, Lymph % (Auto) 11.5 L, Sunflower % (Auto) 7.0, Eos % (Auto) 0.4, Baso % (Auto) 0.2, Absolute Neuts (auto) 13.0 H, Absolute Lymphs (auto) 1.86, Nucleated RBC % 0 04/24/22 05:30: Sodium 139, Potassium 3.0 L, Chloride 107, Carbon Dioxide 24.0, Anion Gap 8, BUN 6 L, Creatinine 0.78, Estim Creat Clear Calc 103.22, Est GFR (MDRD) Af Amer 115, Est GFR (MDRD) Non-Af 95, BUN/Creatinine Ratio 7.7 L, Glucose 158 H, Calcium 8.3 L, Phosphorus 2.9, Magnesium 2.0, Total Bilirubin 0.50, AST 15, ALT 16, Alkaline Phosphatase 60, Total Protein 5.7 L, Albumin 2.5 L, Globulin 3.2, Albumin/Globulin Ratio 0.8 L Micro: Microbiology 04/23/22 00:55 Stool Stool Lactoferrin - Final 04/23/22 10:27 Stool Enteric Bacteriology - Final 04/23/22 10:27 Stool C. difficile DNA Amplification - Final 04/23/22 02:25 Stool Stool Occult Blood (MIRIAN) - Final Occult Blood Positive Physical Exam Const alert, oriented x3, no apparent distress and average body habitus Constitutional Narrative: Young white female, lying in bed, nursing at bedside, appears comfortable and nontoxic, much more comfortable than when initially evaluated yesterday General Appearance: cooperative HEENT normocephalic, head/scalp atraumatic and moist oral mucous membranes Resp normal respiratory effort, no retractions, no use of accessory muscles and clear to auscultation bilaterally Auscultation: Negative for crackles, rhonchi or wheezes Cardio regular rate, regular rhythm, S1 normal heart sound, S2 normal heart sound, no murmurs, no rub, no gallops and no clicks GI normal to inspection, nondistended, normoactive bowel sounds and soft to palpation GI Narrative: Very mild tenderness however dramatically better since yesterday Palpation: tender Extremity no clubbing, cyanosis or edema Extremity Narrative: 2+ pedal pulses Neuro oriented x3 and moves all extremities Speech: speech normal Psych affect normal Psych Narrative: Very pleasant, appropriately interactive Assessment & Plan Assessment/Plan (1) Abdominal pain: (2) Rectal bleeding: (3) Leukocytosis: (4) Anemia: (5) Hypokalemia: (6) Enlarged pancreas: PLAN: Plan Abdominal pain/rectal bleeding -Patient reports that she was diagnosed with ulcerative colitis previously -Appears that she had a flexible sigmoidoscopy done in 2014 that showed colitis -Patient has never been on previous treatment -Much better today -IV fluids with LR at 100 cc/h -N.p.o. until cleared for diet by gastroenterology -IV pain medications -IV antiemetics -GI is following--> colonoscopy later today Acute anemia -Baseline hemoglobin appears to be between 13 and 14 -Was anemic back in 2014 when diagnosed -Globin 11.8 on admission--> relatively stable today at 11.1 despite IV hydration -Iron studies are more consistent with anemia of chronic disease Hypokalemia -60 mill equivalents p.o. potassium given -Repeat lab in a.m. -Magnesium level was within normal limits Enlarged pancreas -No signs of pancreatic issues -Autoimmune work-up ordered by GI -We will have continued GI follow-up after discharge Leukocytosis -Likely secondary to acute colitis -Zosyn -Trending down -Repeat CBC in a.m. Tobacco abuse -Patient currently smoking 1 pack of cigarettes daily -Has a desire to quit -Continue nicotine patch 21 mcg Marijuana use -Patient states she uses for pain control on her abdomen -Recommend cessation DVT prophylaxis -SCDs -No chemoprophylaxis with rectal bleeding -Encourage ambulation CODE STATUS Full Code Charges/Coding Visit Charges Inpatient E&M: 11843 Subs Hosp L2
--- NOTE | 2022-04-24 16:00 | COLBX_PTH ---
PATIENT: GRANT WEINBERG LOC: MS3 U#:[id number] AGE/SX: 26/F ROOM: MS321 RE04/23/[address]: Dr. Laney Delgadillo, : 1995 BED: 1 DIS: 04/25/2022 SPEC #: [id number] RECD: 04/24/22 16:24 STATUS: AMADA SCHWARTZ #: [id number] JENNYFER: 04/24/22 16:[address]: Ra Cemhsaan DEPT: SURGICAL PATHOLOGY RECD BY: Janae Zamora ENTERED: 04/25/22 07:04 SP TYPE: COLON BX EFRAÍN DR: Dr. Laney Delgadillo, DO No Primary Care Phys Tissues: A - Ileum, NOS B - COLON BIOPSY Procedures: Surgery Specimen Level IV HEADER OPERATION: Colonoscopy (MAC), biopsy PRE-OP DIAGNOSIS: Enlarged pancreas, abdominal pain, rectal bleeding, leukocytosis, anemia TISSUE SUBMITTED: A ? Terminal ileum biopsy, B ? Random colon biopsy MICROSCOPIC DIAGNOSIS A. Terminal ileum, biopsy: No pathologic change. B. Colon, random biopsy: Focal acute colitis. See comment. AM:leonel 04/26/2022 COMMENT B. There is focal cryptitis present in several fragments. There is no significant glandular distortion, fissuring ulcers or transmural lymphoid aggregates. Clinical correlation is suggested. MICROSCOPIC DESCRIPTION Slides are reviewed. GROSS DESCRIPTION A - Received in fixative is one container labeled with the patient's name and designated terminal ileum biopsy. The specimen consists of two irregular fragments of light velazquez soft tissue that in aggregate measure 0.5 x 0.3 x 0.1 cm. The specimen is totally submitted in one cassette. B - Received in fixative is one container labeled with the patient's name and designated random colon biopsy. The specimen consists of multiple irregular fragments of light velazquez soft tissue that in aggregate measure 1.5 x 0.5 x 0.1 cm. The specimen is totally submitted in one cassette. / SJ:leonel 04/25/2022 TC:2 CPT: 96104 x2
--- NOTE | 2022-04-24 16:18 | CASEMGMT ---
Social Work SW left medicaid alfredo on pt bedside table. Pt was in bathroom. SW explained alfredo and the need for completion of it as pt is self pay. Pt voiced understanding. SW will check back with pt tomorrow for completed application. FRITZ Rivera
--- NOTE | 2022-04-24 16:27 | OP.CCLET_ITS ---
04/24/2022 No Primary Care Physician Re : Colonoscopy procedure for [facility] This procedure was performed on Sunday, April 24, 2022. My impressions and recommendations are as follows: Impressions : - Anal fissure found on perianal exam. - Severe (Chakraborty Score 3) ulcerative colitis, worsened since the last examination. Biopsied. - Congested mucosa in the terminal ileum. Biopsied. Recommendations : - Discharge patient to home. - Advance diet as tolerated. - Use methylprednisolone 20 mg IV every 6 hours -Hydrocortisone 100 mg per rectum twice a day. -Bentyl 20 mg 3 times a day hold for constipation - Repeat colonoscopy in 6 months for surveillance. - Continue present medications. My findings are described in the full procedure note, which is enclosed. If I can be of further assistance, please feel free to contact me at . Sincerely, Sotero Friend, 04/24/2022 4:27:22 PM This report has been signed electronically.
--- NOTE | 2022-04-24 16:27 | OP.COLON_ITS ---
Patient Name: Donna Farooq Procedure Date: 04/24/2022 3:49 PM Date of : 1995 Age: 26 Procedure: Colonoscopy Indications: Suspected chronic ulcerative pancolitis Providers: Sotero Priest DO Medicines: Monitored Anesthesia Care Patient Profile: This is a 26 year old female. Refer to note in patient chart for documentation of history and physical. Last Colonoscopy: several years ago. Complications: No immediate complications. Procedure: Pre-Anesthesia Assessment: - Prior to the procedure, a History and Physical was performed, and patient medications and allergies were reviewed. The patient is competent. The risks and benefits of the procedure and the sedation options and risks were discussed with the patient. All questions were answered and informed consent was obtained. Patient identification and proposed procedure were verified by the physician in the pre-procedure area. Mental Status Examination: alert and oriented. Airway Examination: normal oropharyngeal airway and neck mobility. Respiratory Examination: clear to auscultation. CV Examination: normal. Prophylactic Antibiotics: The patient does not require prophylactic antibiotics. Prior Anticoagulants: The patient has taken no previous anticoagulant or antiplatelet agents. ASA Grade Assessment: II - A patient with mild systemic disease. After reviewing the risks and benefits, the patient was deemed in satisfactory condition to undergo the procedure. The anesthesia plan was to use monitored anesthesia care (MAC). Immediately prior to administration of medications, the patient was re-assessed for adequacy to receive sedatives. The heart rate, respiratory rate, oxygen saturations, blood pressure, adequacy of pulmonary ventilation, and response to care were monitored throughout the procedure. The physical status of the patient was re-assessed after the procedure. After I obtained informed consent, the scope was passed under direct vision. Throughout the procedure, the patient's blood pressure, pulse, and oxygen saturations were monitored continuously. The colonoscope was introduced through the anus and advanced to the terminal ileum. The colonoscopy was performed without difficulty. The patient tolerated the procedure well. The quality of the bowel preparation was adequate. Scope In: 4:00:54 PM Scope Out: 4:13:30 PM Total Procedure Duration Time 0 hours 12 minutes 36 seconds Findings: An anal fissure was found on perianal exam. Inflammation was found in a continuous and circumferential pattern from the cecum to the terminal ileum. This was graded as Chakraborty Score 3 (severe, with spontaneous bleeding, ulcerations), and when compared to the previous examination, the findings are worsened. Biopsies were taken with a cold forceps for histology. Verification of patient identification for the specimen was done. Estimated blood loss: none. A patchy area of the terminal ileum was congested. Biopsies were taken with a cold forceps for histology. Verification of patient identification for the specimen was done. Estimated blood loss was minimal. Impression: - Anal fissure found on perianal exam. - Severe (Chakraborty Score 3) ulcerative colitis, worsened since the last examination. Biopsied. - Congested mucosa in the terminal ileum. Biopsied. Recommendation: - Discharge patient to home. - Advance diet as tolerated. - Use methylprednisolone 20 mg IV every 6 hours -Hydrocortisone 100 mg per rectum twice a day. -Bentyl 20 mg 3 times a day hold for constipation - Repeat colonoscopy in 6 months for surveillance. - Continue present medications. Procedure Code(s): --- Professional --- 59276, Colonoscopy, flexible; with biopsy, single or multiple CPT copyright 2017 [employer]. All rights reserved. The codes documented in this report are preliminary and upon hand splitter review may be revised to meet current compliance requirements. Sotero Priest DO 04/24/2022 4:27:22 PM This report has been signed electronically. Number of Addenda: 0 Note Initiated On: 04/24/2022 3:49 PM
[2022-04-24 17:31] LABS: Erythrocyte Sedimentation Rate 7 mm/hr (0-30)
[2022-04-24] MEDS: Hydrocortisone 100 MG/60 ML ENEMA RC (20:52)
[2022-04-24] MEDS: Nicotine Polacrilex 2 MG GUM PO (23:29)
[2022-04-25 05:19] VITALS: BP 110/72; PULSE 74; RESP 18; TEMP 36.9; O2SAT 97
[2022-04-25] MEDS: Dicyclomine 10 MG Capsule 20 MG PO ×2 (05:23→11:58)
[2022-04-25 06:09] LABS: Absolute Lymphocyte Count 0.78 X10^3/uL (0.83-4.51); Absolute Neutrophil Count 15.3 X10^3/uL (2.0-7.7); Basophil# 0.02 X10^3/uL; Basophil% 0.1 % (0-1); Hematocrit 35.5 % (37-47); Hemoglobin 12.2 g/dL (12.0-15.0); Lymphocyte # 0.78 X10^3/ul (0.83-4.51); Lymphocyte % 4.8 % (19-41); Mean Corp Hgb Conc 34.4 g/dL (32-36); Mean Corpuscular Hgb 32.5 pg (27.0-32.0); Mean Corpuscular Volume 94.7 fL (81-99); Mean Platelet Vol. 9.6 fl (6.2-12.0); Monocyte# 0.22 X10^3/uL; Monocyte% 1.3 % (0-10); NRBC Flagged by Analyzer 0 % (0-5); Neutrophil # 15.25 X10^3/uL (2.7-7.7); Neutrophil % 93.4 % (47-70); Platelet Count 276 K/mm3 (150-450); RBC Distribution Width CV 12.2 % (11.6-14.6); RBC Distribution Width SD 42.5 fl (35.1-43.9); Red Blood Count 3.75 M/mm3 (4.2-5.4); White Blood Count 16.3 K/mm3 (4.4-11.0)
[2022-04-25 06:43] LABS: BUN 5 mg/dL (7-18); Creatinine, Serum 0.62 mg/dL (0.55-1.02); Estimated Creatinine Clearance 129.85 ml/min; Glucose 162 mg/dL (74-106)
[2022-04-25 06:44] LABS: Anion Gap 6 (5-15); BUN/Creat Ratio 8.1 RATIO (10-20); Calcium,Total 8.9 mg/dL (8.5-10.1); Chloride 109 mmol/L (98-107); EST Glomerular Filtration Rate 124 mL/min (>60); Est Glom Filt Rate - Afr Amer 150 mL/min (>60); Potassium 3.2 mmol/L (3.5-5.1); Sodium Level 140 mmol/L (136-145)
--- NOTE | 2022-04-25 07:00 | PN_ITS ---
Subjective Subjective Patient underwent colonoscopy yesterday was discovered to have pancolitis. She is placed on Solu-Medrol 40 mg IV every 6 hours and remains on levofloxacin and Flagyl. She also was started on Bentyl for crampy abdominal pain. She is doing very well and tolerating a diet. She is having less diarrhea in only had 1 episode of bloody stools today after holding hydrocortisone enemas and all night. Objective Data Objective Data Vital Signs: Vital Signs Temp Pulse Resp BP Pulse Ox O2 Del Method 97.5 F L 70 16 113/74 97 Room Air 04/25/22 12:20 04/25/22 12:20 04/25/22 12:20 04/25/22 12:20 04/25/22 12:20 04/25/22 12:20 Oxygen Delivery Method Room Air Weight: 134 lb 9.616 oz Body Mass Index (BMI) 21.7 Intake & Output: Intake and Output for Last 24 Hours 04/23/22 04/24/22 04/25/22 23:59 23:59 23:59 Intake Total 2461.66 / 2461.66 2394.83 / 2394.83 350 / 350 Output Total 2750 / 2750 Balance 2461.66 / 2461.66 -355.17 / -355.17 350 / 350 Lab / Micro Data Result Diagrams: 04/25/22 05:45 04/25/22 05:45 Labs: Laboratory Results - last 24 hr 04/24/22 05:30: ESR 7 04/24/22 05:30: C-React Prot Ext Range 86.70 H 04/25/22 05:45: WBC 16.3 H, RBC 3.75 L, Hgb 12.2, Hct 35.5 L, MCV 94.7, MCH 32.5 H, MCHC 34.4, RDW Std Deviation 42.5, RDW Coeff of Renetta 12.2, Plt Count 276, MPV 9.6, Immature Gran % (Auto) 0.400, Neut % (Auto) 93.4 H, Lymph % (Auto) 4.8 L, [place] % (Auto) 1.3, Eos % (Auto) 0.0, Baso % (Auto) 0.1, Absolute Neuts (auto) 15.3 H, Absolute Lymphs (auto) 0.78 L, Nucleated RBC % 0 04/25/22 05:45: Sodium 140, Potassium 3.2 L, Chloride 109 H, Carbon Dioxide 25.0, Anion Gap 6, BUN 5 L, Creatinine 0.62, Estim Creat Clear Calc 129.85, Est GFR (MDRD) Af Amer 150, Est GFR (MDRD) Non-Af 124, BUN/Creatinine Ratio 8.1 L, Glucose 162 H, Calcium 8.9 Micro: Microbiology 04/23/22 00:55 Stool Stool Lactoferrin - Final 04/23/22 10:27 Stool Enteric Bacteriology - Final 04/23/22 10:27 Stool C. difficile DNA Amplification - Final 04/23/22 02:25 Stool Stool Occult Blood (MIRIAN) - Final Occult Blood Positive Physical Exam Narrative Patient states she is feeling great. Having no abdominal pain. Tolerating a regular diet. No rectal bleeding. Anxious to go home. Const alert, oriented x3, no apparent distress and average body habitus Constitutional Narrative: Young white female, sitting up in bed and appears well, nursing at bedside, nontoxic, much improved since admission General Appearance: cooperative, comfortable, well kempt and well developed Orientation / Consciousness: awake, oriented to person, oriented to place and oriented to time Exam Limitations: no limitations HEENT normocephalic, head/scalp atraumatic, hearing grossly normal bilaterally and moist oral mucous membranes HEENT Narrative: Mallampati 2, no thrush, dentition is good Eyes PERRL, EOMs intact bilaterally and conjunctivae normal Eyes Narrative: No scleral icterus Neck no lymphadenopathy, supple, no JVD and no carotid bruits Neck Narrative: Trachea midline, no thyroid enlargement or nodularity Resp normal respiratory effort, no retractions, no use of accessory muscles and clear to auscultation bilaterally Auscultation: Negative for crackles, rhonchi or wheezes Cardio regular rate, regular rhythm, S1 normal heart sound, S2 normal heart sound, no murmurs, no rub, no gallops and no clicks GI normal to inspection, nondistended, normoactive bowel sounds, soft to palpation and non-tender Extremity no clubbing, cyanosis or edema Extremity Narrative: 2+ pedal pulses Skin no rashes or lesions noted, no wounds, skin turgor normal and no jaundice Neuro oriented x3, CN's II-XII intact bilaterally, moves all extremities and no focal motor deficits Speech: speech normal Motor Exam: strength 5/5 throughout Psych affect normal Psych Narrative: Very pleasant, appropriately interactive Assessment & Plan Assessment/Plan (1) Enlarged pancreas: PLAN: Unsure the etiology of her large pancreas. She does not exhibit any signs or symptoms of autoimmune pancreatitis. She does not drink any alcohol. Typically also colitis does not involve the pancreas. I will check an IgG4 level, CALISTA, serum gammaglobulins for autoimmune pancreatitis. (2) Abdominal pain: PLAN: Abdominal pain likely secondary to ulcerative colitis flare. She will need to undergo colonoscopy to with evaluation of the lower GI tract for staging purposes. (3) Rectal bleeding: PLAN: secondary to ulcerative colitis. Okay to DC home on oral antibiotics and oral prednisone therapy. We sent off labs and she wants to undergo Stelara treatment. Hopefully we will be able to get that approved for her. (4) Leukocytosis: PLAN: . Leukocytosis likely secondary to leukemoid reaction. However I do agree with continued antibiotics at this time. (5) Anemia: PLAN: Anemia likely secondary to GI bleed. Charges/Coding Visit Charges Inpatient E&M: 34296 Subs Hosp L3
[2022-04-25 08:48] VITALS: BP 118/70; PULSE 79; RESP 17; TEMP 36.7; O2SAT 97
[2022-04-25 08:50] VITALS: O2SAT 97
[2022-04-25] MEDS: Potassium Chloride Oral Soln 20 MEQ/15 ML UDC 60 MEQ PO (09:38)
[2022-04-25] MEDS: Hydrocortisone 100 MG/60 ML ENEMA RC (10:22)
--- NOTE | 2022-04-25 11:37 | DS.PCM_ITS ---
Providers Date of Admission: 04/23/22 Date of Discharge: 04/25/22 Primary Care Physician: Ellen Primary Care Phys Consultations 04/23/22 08:38 Consult: Gastroenterology Routine Consulting Provider: Irina Gastroenterology Reason for Consult: ?UC flare/rectal bleeding EMERGENT Consult: No MD Notified: Yes Date Notified: 04/23/22 Time Notified: 07:44 Method of Notification: ED Physician Initiated Reason For Visit: UC FLARE Diagnosis Discharge Diagnosis (1) Abdominal pain: Status: Acute Code(s): R10.9 - Unspecified abdominal pain (2) Rectal bleeding: Status: Acute Code(s): K62.5 - Hemorrhage of anus and rectum (3) Leukocytosis: Status: Acute Code(s): D72.829 - Elevated white blood cell count, unspecified (4) Anemia: Status: Acute Code(s): D64.9 - Anemia, unspecified (5) Hypokalemia: Status: Acute Code(s): E87.6 - Hypokalemia (6) Enlarged pancreas: Status: Acute Code(s): K86.9 - Disease of pancreas, unspecified Medications at Discharge Home Medications amoxicillin 875 mg-potassium clavulanate 125 mg tablet 1 tab PO BID #24 tabs 04/25/22 dicyclomine 10 mg capsule 20 mg PO TIDAC #90 caps 04/25/22 hydrocortisone 100 mg/60 mL enema 100 mg (60 mL) MD QHS #1,800 mL 04/25/22 prednisone 20 mg tablet 40 mg PO DAILY #60 tabs 04/25/22 Hospital Course Operations None Procedures Colonoscopy and - (CT of the abdomen and pelvis) Summary of Care Provided Minutes Spent on Discharge: 37 Hospital Course: Ms. Farooq is a 26-year-old white female who presented to the emergency department at [facility] on 04/23/2022 with abdominal pain and hematochezia. The patient reported that back in 2014 she had similar episode and had a sigmoidoscopy performed at that time at which time she was told she has also of colitis. Biopsies resulted at that time showed colitis but nonspecific results. She never had any follow-up and had never been on any medications for her UC. She is never had a colonoscopy. She stated that she has had intermittent issues since 2014 but reported that they typically improve when she limits her diet to clear liquids for several days. She reported that the episode that had been ongoing for 2 weeks prior to presentation had not resolved with her typical treatment and gotten bad enough that she presented to the emergency department. She reported associated nausea, vomiting, and diarrhea. Vital signs at presentation demonstrated temperature of 97.1, heart rate of 101, blood pressure 113/75, respiratory rate of 18, pulse ox 97% room air.? CBC showed a leukocytosis at 16.9 with a left shift of 82.6% neutrophilia.? Her hemoglobin was 11.8.? Hemoglobin on previous lab draw from September 2021 was 13.1 and it appears that her baseline is between 13 and 14.? Lately count was normal.? Her chemistry panel was unremarkable.? UA was unremarkable.? test was negative.? CT of her abdomen pelvis d emonstrated prominent pancreas without any surrounding inflammatory changes, mural thickening of the descending colon, proximal sigmoid colon and adjacent fat infiltration consistent with flareup of inflammatory colitis, there is also questionable inflammatory mural thickening at the hepatic flexure, mildly hyperplastic mesenteric lymph nodes and a small amount of free fluid in the posterior cul-de-sac of the pelvis. She was admitted to the medical floor placed on IV Zosyn, made n.p.o., given IV fluids and treated with pain medications and antiemetics. Gastroenterology was consulted for colonoscopy. Colonoscopy was performed on 04/24/2022 and demonstrated an anal fissure found on the perianal exam with inflammation in a continuous and circumferential pattern from the cecum to the terminal ileum. It was graded as Chakraborty score 3 (severe, with spontaneous bleeding and ulcerations) and when compared to previous examination reviewed findings were worsened. Biopsies were taken with cold fo rceps for histology and pathology was pending at discharge. She was placed on a regular diet and tolerated this well. In addition to the above she was started on steroids IV 20 mg every 6 hours, hydrocortisone enemas twice daily and Bentyl 3 times daily. A repeat colonoscopy was recommended in 6 months. I discussed the case with Dr. Priest and he wanted her discharge on prednisone 40 mg daily for a month, antibiotics to complete a course (Augmentin twice daily for another 12 days), Bentyl scheduled, and hydrocortisone enemas 100 mg per rectum nightly. Prescriptions were sent to her pharmacy prior to discharge. She is to follow- up with him and call his office for a hospital follow-up appointment hopefully to be seen in the next 2 to 4 weeks. She was discharged home feeling better brant n she felt in several weeks and was able to tolerate a diet on 04/25/2022. Discharge diagnoses: Pancolitis-suspected ulcerative colitis Hematochezia-resolved Acute anemia-mild stable Hypokalemia-replaced Enlarged pancreas--> autoimmune work-up pending at discharge and will be followed up by gastroenterology Leukocytosis Tobacco abuse Marijuana use Physical Exam Narrative Patient states she is feeling great. Having no abdominal pain. Tolerating a regular diet. No rectal bleeding. Anxious to go home. Const alert, oriented x3, no apparent distress and average body habitus Constitutional Narrative: Young white female, sitting up in bed and appears well, nursing at bedside, nontoxic, much improved since admission General Appearance: cooperative, comfortable, well kempt and well developed Orientation / Consciousness: awake, oriented to person, oriented to place and oriented to time Exam Limitations: no limitations HEENT normocephalic, head/scalp atraumatic, hearing grossly normal bilaterally and moist oral mucous membranes HEENT Narrative: Mallampati 2, no thrush, dentition is good Eyes PERRL, EOMs intact bilaterally and conjunctivae normal Eyes Narrative: No scleral icterus Neck no lymphadenopathy, supple, no JVD and no carotid bruits Neck Narrative: Trachea midline, no thyroid enlargement or nodularity Resp normal respiratory effort, no retractions, no use of accessory muscles and clear to auscultation bilaterally Auscultation: Negative for crackles, rhonchi or wheezes Cardio regular rate, regular rhythm, S1 normal heart sound, S2 normal heart sound, no murmurs, no rub, no gallops and no clicks GI normal to inspection, nondistended, normoactive bowel sounds, soft to palpation and non-tender Extremity no clubbing, cyanosis or edema Extremity Narrative: 2+ pedal pulses Skin no rashes or lesions noted, no wounds, skin turgor normal and no jaundice Neuro oriented x3, CN's II-XII intact bilaterally, moves all extremities and no focal motor deficits Speech: speech normal Motor Exam: strength 5/5 throughout Psych affect normal Psych Narrative: Very pleasant, appropriately interactive Weight / BMI Weight Weight: 61.054 kg Body Mass Index (BMI) 21.7 ABG / Lab / Microbiology Data Result Diagrams: 04/25/22 05:45 04/25/22 05:45 Laboratory: Laboratory Results - last 24 hr 04/24/22 05:30: ESR 7 04/24/22 05:30: C-React Prot Ext Range 86.70 H 04/25/22 05:45: WBC 16.3 H, RBC 3.75 L, Hgb 12.2, Hct 35.5 L, MCV 94.7, MCH 32.5 H, MCHC 34.4, RDW Std Deviation 42.5, RDW Coeff of Renetta 12.2, Plt Count 276, MPV 9.6, Immature Gran % (Auto) 0.400, Neut % (Auto) 93.4 H, Lymph % (Auto) 4.8 L, [place] % (Auto) 1.3, Eos % (Auto) 0.0, Baso % (Auto) 0.1, Absolute Neuts (auto) 15.3 H, Absolute Lymphs (auto) 0.78 L, Nucleated RBC % 0 04/25/22 05:45: Sodium 140, Potassium 3.2 L, Chloride 109 H, Carbon Dioxide 25.0, Anion Gap 6, BUN 5 L, Creatinine 0.62, Estim Creat Clear Calc 129.85, Est GFR (MDRD) Af Amer 150, Est GFR (MDRD) Non-Af 124, BUN/Creatinine Ratio 8.1 L, Glucose 162 H, Calcium 8.9 Microbiology: Microbiology 04/23/22 00:55 Stool Stool Lactoferrin - Final 04/23/22 10:27 Stool Enteric Bacteriology - Final 04/23/22 10:27 Stool C. difficile DNA Amplification - Final 04/23/22 02:25 Stool Stool Occult Blood (MIRIAN) - Final Occult Blood Positive D/C Instructions Discharge Diet: No restrictions Discharge Activity: Return to Normal Activity Return to work on: 04/26/22 Meaningful Use Info Meaningful Use Diagnoses (Choose all that apply): None applicable Discharge Plan Admission Admit Date/Time: 04/23/22 07:38 Primary Reason for Your Visit: Abdominal pain/rectal bleeding Attending Provider: Laney Delgadillo Primary Care Provider: Care Physician,No Primary Instructions Patient Instructions: What Is Ulcerative Colitis?, Ulcerative Colitis Dc, Management of Ulcerative ..., Ulcerative Colitis Tx Discharge Orders/Prescriptions Prescriptions: New hydrocortisone 100 mg/60 mL Enema 100 mg MD QHS Qty: 1800 1RF dicyclomine 10 mg Capsule 20 mg PO TIDAC Qty: 90 1RF prednisone 20 mg tablet 40 mg PO DAILY Qty: 60 0RF amoxicillin-pot clavulanate 875-125 mg tablet 1 tab PO BID Qty: 24 0RF Referrals / Follow Up: Sotero Priest DO [Med Staff - Active Staff] - See Referral Note (Today or tomorrow to be seen in his office as soon as they can get you into his schedule for hospital follow-up) Care Physician,No Primary [Primary Care Provider] - Disposition Disposition (needs filled in before D/C Order can be placed): Home, Self Care Charges/Coding Visit Charges Inpatient E&M: 34365 Disch Hosp >30min
[2022-04-25] MEDS: 0.9% Saline Lock 10 ML Syringe IV (11:58)
--- NOTE | 2022-04-25 12:11 | CASEMGMT ---
Addendum entered by Yazmin Kathleen 04/25/22 14:00: Per hospitalist, request be notified. Sent message to who states pt does not need to take the enema. PRICILLA BA updated pt. She denies further homegoing needs. Original Note: TC to Anitha Dotson, pt cost of antibiotics and steroid is approx $100. The hydrocortisone enema cost is $430. PRICILLA BA in to pt room, pt states she cannot afford the enema but can afford the other meds. Updated hospitalist to see if there is an alternative.
[2022-04-25 12:20] VITALS: BP 113/74; PULSE 70; RESP 16; TEMP 36.4; O2SAT 97
--- NOTE | 2022-04-25 15:28 | PHA.DC.MR ---
Pharmacy Service has performed discharge medication reconciliation for this patient. The patient's discharge medication list was reviewed for discrepancies and discrepancies were resolved. Unable to area counselor before discharge. Medications reviewed. Home Medications amoxicillin 875 mg-potassium clavulanate 125 mg tablet 1 tab PO BID #24 tabs 04/25/22 dicyclomine 10 mg capsule 20 mg PO TIDAC #90 caps 04/25/22 hydrocortisone 100 mg/60 mL enema 100 mg (60 mL) GA QHS #1,800 mL 04/25/22 prednisone 20 mg tablet 40 mg PO DAILY #60 tabs 04/25/22
[2022-04-26 15:08] LABS: Cytoplasmic Ab (C-ANCA) <1:20 titer (Neg:<1:20); Endomysial Antibody IgA Negative (Negative); HEPATITIS B SURFACE AG Negative (Negative); Hep C Antibodies Non Reactive (Non Reactive); Hepatitis A IgM Antibody Negative (Negative); Hepatitis B Core AB IgM Negative (Negative); Immunoglobulin A 100 mg/dL (87-352); QNTFERON TB Mitogen Value > 10.00 IU/mL (.); QNTFERON TB Nil Value 0.03 IU/mL (.); QNTFERON TB1+ Ag Value 0.03 IU/mL (.); QNTFERON TB2+ Ag Value 0.03 IU/mL (.)
[2022-04-26 22:06] LABS: Anti-Centromere B Ab <0.2 AI (0.0-0.9); Anti-Chromatin <0.2 AI (0.0-0.9); Anti-Jo <0.2 AI (0.0-0.9); Anti-Scleroderma-70 AB <0.2 AI (0.0-0.9); RNP Ab <0.2 AI (0.0-0.9); SJOGREN'S Anti-SS-A test < 0.2 AI (0.0-0.9); SJOGREN'S Anti-SS-B test < 0.2 AI (0.0-0.9); Smith Ab <0.2 AI (0.0-0.9)
[2022-04-26 23:06] LABS: Anti-dsDNA Ab <1 IU/mL (0-9); Calprotectin, Stool 1394 ug/g (0-120)
[2022-04-26 23:07] LABS: Deamidated Gliadin IgA 3 units (0-19); Deamidated Gliadin IgG 4 units (0-19); Perinuclear Ab (P-ANCA) <1:20 titer (Neg:<1:20); QNTIFERON TB Positive Criteria Negative (Negative); t-Transglutaminase IgA <2 U/mL (0-3)
== END 2022-04-25 14:45 | disposition home or self-care (01) | DRG 387 ==
LOC: ED 02:45 → MS3 07:57
PROVIDERS: Internal Medicine Gastroenterology; Admitting Provider Internal Medicine; Emergency Provider Student in an Organized Health Care Education/Training Program; Visit Provider Internal Medicine
PROC: 0DJD8ZZ Inspection of Lower Intestinal Tract, Via Natural or Artificial Opening Endoscopic (ICD-10-PCS; CPT 45378; principal; 2022-04-24 15:55)
DX: K51.011 Ulcerative (chronic) pancolitis with rectal bleeding (principal); D63.8 Anemia in other chronic diseases classified elsewhere; K86.89 Other specified diseases of pancreas; F12.90 Cannabis use, unspecified, uncomplicated; D72.823 Leukemoid reaction; F17.210 Nicotine dependence, cigarettes, uncomplicated; E87.6 Hypokalemia; K60.2 Anal fissure, unspecified; Z86.16 Personal history of COVID-19; D64.9 Anemia, unspecified
CPT/HCPCS: 36415; 74177; 80048; 80053; 80074; 81001; 82274; 82728; 82784; 83516; 83540; 83550; 83630; 83690; 83735; 83993; 84100; 84703; 85025; 85045; 85652; 86140; 86225; 86235; 86255; 86256; 86480; 86850; 86900; 86901; 87177; 87209; 87493; 87506; 88305; 94668; 99252; 99284; 99406; J7030; J7050; J7120; Q9967; A4216; G0463; J2405

== ENCOUNTER 2022-04-30 13:50 | Inpatient (IN) | payer SELFPAY ==
[2022-04-30 13:51] VITALS: BP 103/75; PULSE 96; RESP 18; TEMP 36.1; O2SAT 98
[2022-04-30 15:59] VITALS: BMI 21.7
[2022-04-30 16:04] LABS: Absolute Lymphocyte Count 2.13 X10^3/uL (0.83-4.51); Basophil# 0.07 X10^3/uL; Basophil% 0.3 % (0-1); Eosinophil# 0.05 X10^3/uL; Eosinophils% 0.2 % (0-5); Hematocrit 39.4 % (37-47); Lymphocyte # 2.13 X10^3/ul (0.83-4.51); Lymphocyte % 9.1 % (19-41); Mean Corpuscular Hgb 31.2 pg (27.0-32.0); Mean Corpuscular Volume 94.5 fL (81-99); Mean Platelet Vol. 8.8 fl (6.2-12.0); Monocyte% 4.7 % (0-10); NRBC Flagged by Analyzer 0 % (0-5); Neutrophil # 19.98 X10^3/uL (2.7-7.7); Neutrophil % 85.1 % (47-70); Platelet Count 384 K/mm3 (150-450); RBC Distribution Width CV 12.3 % (11.6-14.6); RBC Distribution Width SD 42.8 fl (35.1-43.9); Red Blood Count 4.17 M/mm3 (4.2-5.4); White Blood Count 23.5 K/mm3 (4.4-11.0)
[2022-04-30 16:22] LABS: Anion Gap 7 (5-15); BUN 5 mg/dL (7-18); BUN/Creat Ratio 8.7 RATIO (10-20); Calcium,Total 8.5 mg/dL (8.5-10.1); Chloride 106 mmol/L (98-107); Creatinine, Serum 0.57 mg/dL (0.55-1.02); EST Glomerular Filtration Rate 135 mL/min (>60); Est Glom Filt Rate - Afr Amer 164 mL/min (>60); Estimated Creatinine Clearance 141.24 ml/min; Glucose 88 mg/dL (74-106); Potassium 2.7 mmol/L (3.5-5.1); Sodium Level 141 mmol/L (136-145)
--- NOTE | 2022-04-30 16:41 | EDS_ITS ---
HPI HPI - GI History of Present Illness Chief Complaint: Abd Pain Detail of Chief Complaint: Abdominal pain with bloody diarrhea Informant: patient Abdominal Pain/Flank Pain Onset: Days Timing: Continuous Quality: Aching Location: Diffuse Current Severity: Moderate Maximum Severity: Severe Worsened by: Movement Relieved by: Nothing Nausea/Vomiting/Emesis GI Symptom: Positive for Nausea; Negative for Vomiting Diarrhea/Melena/Hematochezia GI Symptom: Positive for Diarrhea and Hematochezia; Negative for Melena Onset: Days Stool Quality: Positive for Loose, Watery and BRB per rectum Associated Symptoms Associated Symptoms: Negative for Dysuria, Frequency, Hematuria or Urgency Narrative Narrative: Patient is a 26-year-old female with history of ulcerative colitis. She had a recent colonoscopy informed by Dr. Priest which revealed the following: Impression: ? - Anal fissure found on perianal exam. ? - Severe (Chakraborty Score 3) ulcerative colitis, ? worsened since the last examination. Biopsied. ? - Congested mucosa in the terminal ileum. ? Biopsied. Recommendation: ? - Discharge patient to home. ? - Advance diet as tolerated. ? - Use methylprednisolone 20 mg IV every 6 hours ? -Hydrocortisone 100 mg per rectum twice a day. ? -Bentyl 20 mg 3 times a day hold for ? constipation ? - Repeat colonoscopy in 6 months for ? surveillance. ? - Continue present medications. Patient states she has had increased diarrhea more blood and more pain since she was discharged. She is taking the prednisone. Patient denies fever or chills. Patient does report thirst and dry mouth. She also complains of weakness. Patient denies headache, visual, ocular auditory symptoms. Patient denies cardiac or respiratory symptoms. Patient denies urologic symptoms. Patient states she is not sexually active. She had a negative test with past admission. Prior similar symptoms: Yes Recent Illness/Hospitalization: Yes [facility] Medical History COVID-19 Marijuana use Tobacco abuse Ulcerative colitis Home Medications amoxicillin 875 mg-potassium clavulanate 125 mg tablet 1 tab PO BID #24 tabs 04/25/22 [Rx Last Taken Unknown] dicyclomine 10 mg capsule 20 mg PO TIDAC #90 caps 04/25/22 [Rx Last Taken Unknown] hydrocortisone 100 mg/60 mL enema 100 mg (60 mL) [place] QHS #1,800 mL 04/25/22 [Rx Last Taken Unknown] prednisone 20 mg tablet 40 mg PO DAILY #60 tabs 04/25/22 [Rx Last Taken Unknown] Allergy/AdvReac Type Severity Reaction Status Date / Time bee venom protein (honey bee) Allergy Swelling Verified 04/30/22 13:51 codeine Allergy Hives Verified 04/30/22 13:51 Surgical History Hx of tonsillectomy Social History household members: family housing: house Smoking Status: Current every day smoker tobacco type: cigarettes alcohol intake: never substance use type: marijuana ROS ROS ED Constitutional Constitutional ED: Denies chills, fever(s), subjective or sweats ENT ENT ED: Denies ear pain, rhinorrhea or sore throat Cardiovascular Cardiovascular: Denies chest pain, orthopnea, palpitations, paroxysmal nocturnal dyspnea or racing heartbeat Respiratory/Chest Respiratory/Chest: Denies cough, dyspnea, dyspnea on exertion, orthopnea or paroxysmal nocturnal dyspnea Gastrointestinal Gastrointestinal: Reports diarrhea, nausea and other Details: HPI for further detail ; Denies abdominal pain, constipation, melena or vomiting Genitourinary Genitourinary ED: Denies dysuria, hematuria or urinary frequency Musculoskeletal Musculoskeletal: Denies arthralgias, back pain or neck pain Integumentary Denies abscess, Abrasions or rash Neurologic Neurologic: Reports weakness; Denies headache(s) or paresthesias Psychiatric Psychiatric: Denies anxiety Endocrine Endocrinology: Denies polydipsia, polyphagia or polyuria Hematologic/Lymphatic Hematologic/Lymphatic: Denies easy bleeding or easy bruising EXAM Physical Exam Const Vital Signs: 04/30/22 13:51 04/30/22 17:08 Temperature 96.9 F L Temperature Source Temporal Pulse Rate 96 102 H Respiratory Rate 18 16 Blood Pressure 103/75 104/84 H Blood Pressure Mean 84 90 Pulse Ox 98 99 Oxygen Delivery Method Room Air Positive well nourished and well developed Constitutional Narrative: Patient appears pale. She appears ill. She does not appear toxic. General Appearance ED: well developed and pallor; Negative for NAD HEENT Reports TM's clear and dry mucous membranes normocephalic and atraumatic Tympanic Membrane ED: Yes TM's clear Mouth ED: Yes dry mucous membranes Mouth: dry mucous membranes Eyes PERRL and EOMs intact bilaterally General Eye ED: Yes scleral icterus; Negative for pale conjunctiva Neck no lymphadenopathy, supple and no JVD Resp normal respiratory effort and clear to auscultation bilaterally Cardio regular rate, regular rhythm, S1 normal heart sound, S2 normal heart sound and no murmurs GI non-distended and no masses; Negative for non-tender GI Narrative: Fissure in anal. Patient has bloody material noted on rectal exam. Auscultation: hyperactive bowel sounds Palpation: soft, tender other (Diffuse) and guarding other (Diffusely); Negative for rigid, hepatomegaly, splenomegaly, hernia, mass or pulsatile mass Back/Spine no CVA tenderness Thoracic Spine / Upper Back: Negative for thoracic spinal tenderness Lumbar Spine / Lower Back: Negative for lumbar spinal tenderness Extremity full ROM General Extremety ED: Negative for edema or tenderness General Extremity: Negative for edema Neuro CN's II-XII intact bilaterally, moves all extremities and no sensory deficits noted Sensorium / Orientation: alert Psych mental status grossly normal and thought process normal Skin no wounds General Skin Exam: pallor; Negative for jaundice Lesions: no lesions Rashes: no rashes MDM MDM MDM Narrative Medical decision making narrative: Suspect patient has exacerbation of her ulcerative colitis. Dr. Priest has been paged. Her diarrhea also may be worse due to amoxicillin. BMP was obtained to assess for hypokalemia. She was hypokalemic on last admission. Also to assess renal function and anion gap. CBC to assess white count since it was elevated as well as differential. Prior records were reviewed and summarized in the HPI. Dr. Cem keita hand molder was paged to discuss case. Lab Data Attestation: I reviewed the patient's lab results. Lab results narrative: White count is elevated and higher than prior. There is a slight shift. H&H is unremarkable. Patient does have hypokalemia. We will treat with p.o. potassium since she is not in. Will obtain EKG to evaluate for U waves. Labs: Laboratory Results - last 24 hr 04/30/22 04/30/22 04/30/22 15:50 15:50 15:50 WBC 23.5 H RBC 4.17 L Hgb 13.0 Hct 39.4 MCV 94.5 MCH 31.2 MCHC 33.0 RDW Std Deviation 42.8 RDW Coeff of Renetta 12.3 Plt Count 384 MPV 8.8 Immature Gran % (Auto) 0.600 Neut % (Auto) 85.1 H Lymph % (Auto) 9.1 L [place] % (Auto) 4.7 Eos % (Auto) 0.2 Baso % (Auto) 0.3 Absolute Neuts (auto) 20.0 H Absolute Lymphs (auto) 2.13 Nucleated RBC % 0 Sodium 141 Potassium 2.7 L* Chloride 106 Carbon Dioxide 28.0 Anion Gap 7 BUN 5 L Creatinine 0.57 Estim Creat Clear Calc 141.24 Est GFR (MDRD) Af Amer 164 Est GFR (MDRD) Non-Af 135 BUN/Creatinine Ratio 8.7 L Glucose 88 Calcium 8.5 Serum , Qual NEGATIVE Treatment and Re-Evaluation Narrative: Patient case was discussed with Dr. Priest. He recommended high-dose IV steroids. Patient to be admitted. Case was discussed with Dr. Cochran Discharge Plan Triage Chief Complaint: Abd Pain Other Complaint: Nausea/Vomiting/Diarrhea ED Provider: ClementYosef Dx/Rx/DC Orders Prescriptions: No Action hydrocortisone 100 mg/60 mL Enema 100 mg [place] QHS Qty: 1800 1RF dicyclomine 10 mg Capsule 20 mg PO TIDAC Qty: 90 1RF prednisone 20 mg tablet 40 mg PO DAILY Qty: 60 0RF amoxicillin-pot clavulanate 875-125 mg tablet 1 tab PO BID Qty: 24 0RF Primary Care Provider: Care Physician,No Primary Referrals: Care Physician,No Primary [Primary Care Provider] -
--- NOTE | 2022-04-30 16:48 | EKG12_ITS ---
Test Reason : Blood Pressure : / mmHG Vent. Rate : 094 BPM Atrial Rate : 094 BPM P-R Int : 154 ms QRS Dur : 094 ms QT Int : 354 ms P-R-T Axes : 047 046 012 degrees QTc Int : 442 ms Normal sinus rhythm Normal ECG Confirmed by WILBER MARTINEZ, SARITA ([id number]), web content editor MEENAKSHI COVINGTON ([id number]) on 05/02/2022 10:24:34 AM Referred By: SOO Confirmed By:SARITA MERINO MD
[2022-04-30 16:51] LABS: Internal QC Validated? YES +Cl - CLEAR BKGD; Pregnancy, Serum, hCG Quali. NEGATIVE Negative
[2022-04-30 17:08] VITALS: BP 104/84; PULSE 102; RESP 16; O2SAT 99
[2022-04-30] MEDS: Potassium Chloride Oral Soln 20 MEQ/15 ML UDC 40 MEQ PO (18:05)
[2022-04-30 18:07] VITALS: BP 127/80; PULSE 87; RESP 16; TEMP 36.6; O2SAT 98
--- NOTE | 2022-04-30 18:20 | ED.RN ---
pt on bsc. guarding rocking and moaning in pain. vomiting and diarrhea. assited with emesis backs wash clothes and any other needs. notified that potassium didnt stay down. he is to discuss with hospitalist regarding iv potassium may be required on floor. order for reglan and dilauadid given.
--- NOTE | 2022-04-30 18:34 | HP.PCM.HOS_ITS ---
[facility] - General General Date of Service: 04/30/22 Chief Complaint: Hematochezia and abdominal pain HPI Narrative GRANT WEINBERG, is a 26 F who presents with recurrent hematochezia and abdominal pain. Patient was admitted from the to the for what appeared to be a ulcerative colitis flare. Patient was having hematochezia at that time. By time she was discharged, the bradykinesia had greatly improved though not completely resolved. It is been ongoing but progressively getting worse. Over the past 24 hours, patient is having bloody bowel movements roughly every 1-2 hours. Patient also has just constant left lower quadrant abdominal pain. Before she has a bout of hematochezia, she will get crampy abdominal pain over her lower abdomen. Patient had some issues several years ago but that resolved and never sought attention thereafter. Patient was discharged with prednisone which she has been taking and was to follow-up gastroenterology but h as not had the opportunity to follow-up. [facility] Medical History COVID-19 Marijuana use Tobacco abuse Ulcerative colitis Home Medications amoxicillin 875 mg-potassium clavulanate 125 mg tablet 1 tab PO BID #24 tabs 04/25/22 [Rx Last Taken Unknown] dicyclomine 10 mg capsule 20 mg PO TIDAC #90 caps 04/25/22 [Rx Last Taken Unknown] hydrocortisone 100 mg/60 mL enema 100 mg (60 mL) [place] QHS #1,800 mL 04/25/22 [Rx Last Taken Unknown] prednisone 20 mg tablet 40 mg PO DAILY #60 tabs 04/25/22 [Rx Last Taken Unknown] Allergy/AdvReac Type Severity Reaction Status Date / Time bee venom protein (honey bee) Allergy Swelling Verified 04/30/22 13:51 codeine Allergy Hives Verified 04/30/22 13:51 Surgical History Hx of tonsillectomy Social History household members: family housing: house Smoking Status: Current every day smoker tobacco type: cigarettes alcohol intake: never substance use type: marijuana ROS ROS Narrative No fever or chills. She no hematemesis. Positive nausea. All review of systems were negative except as mentioned above in the history of present illness and the other review of systems. Vital Signs Vital Signs Vital Signs: 04/30/22 13:51 04/30/22 17:08 04/30/22 18:07 Temperature 36.1 C L 36.6 C Temperature Source Temporal Temporal Pulse Rate 96 102 H 87 Respiratory Rate 18 16 16 Blood Pressure 103/75 104/84 H 127/80 H Blood Pressure Mean 84 90 95 Pulse Ox 98 99 98 Oxygen Delivery Method Room Air Room Air Weight Weight: 61 kg Body Mass Index (BMI) 21.7 Physical Exam Const alert and no apparent distress HEENT normocephalic and head/scalp atraumatic Eyes Eyes Narrative: No icterus Neck no lymphadenopathy and no JVD Resp normal respiratory effort, no retractions, no use of accessory muscles and clear to auscultation bilaterally Cardio regular rate, regular rhythm, S1 normal heart sound and S2 normal heart sound GI GI Narrative: Hypoactive bowel sounds. Nondistended. Tender. Rebound. Extremity normal to inspection Skin Skin Narrative: Does have some faint erythematous patches on her upper chest but not visualized elsewhere. Neuro moves all extremities Sensorium / Orientation: awake and alert Psych affect normal Results Lab / Micro Data Attestation: I reviewed the patient's lab results. Result Diagrams: 04/30/22 15:50 04/30/22 15:50 Labs: Laboratory Results - last 24 hr 04/30/22 15:50: WBC 23.5 H, RBC 4.17 L, Hgb 13.0, Hct 39.4, MCV 94.5, MCH 31.2, MCHC 33.0, RDW Std Deviation 42.8, RDW Coeff of Renetta 12.3, Plt Count 384, MPV 8.8, Immature Gran % (Auto) 0.600, Neut % (Auto) 85.1 H, Lymph % (Auto) 9.1 L, [place] % (Auto) 4.7, Eos % (Auto) 0.2, Baso % (Auto) 0.3, Absolute Neuts (auto) 20.0 H, Absolute Lymphs (auto) 2.13, Nucleated RBC % 0 04/30/22 15:50: Sodium 141, Potassium 2.7 L*, Chloride 106, Carbon Dioxide 28.0, Anion Gap 7, BUN 5 L, Creatinine 0.57, Estim Creat Clear Calc 141.24, Est GFR (MDRD) Af Amer 164, Est GFR (MDRD) Non-Af 135, BUN/Creatinine Ratio 8.7 L, Glucose 88, Calcium 8.5 04/30/22 15:50: Serum , Qual NEGATIVE Assessment & Plan Assessment/Plan (1) Ulcerative colitis: PLAN: Never quite resolved from last admission. Patient has been taking her prednisone. Discussed with Dr. Priest of gastroenterology, and recommends methylprednisolone 80 mg IV every 6 GI consult Clear liquid diet This is not a surgical abdomen at this time, however if condition deteriorates, consider imaging. (2) Hypokalemia: PLAN: Was low during the last admission but lower now. Patient did receive potassium in the emergency room. We will administer IV fluids with potassium recheck in the morning as well as check magnesium. (3) Enlarged pancreas: PLAN: Unclear significance Need to have this followed up as outpatient PLAN: Plan VTE prophylaxis: SCDs. Chemical prophylaxis contraindicated in light of the GI bleed. Charges/Coding Visit Charges Inpatient E&M: 11418 Init Hosp L2
[2022-04-30] MEDS: Metoclopramide 10 MG/2 ML Vial 5 MG IV (18:40)
[2022-04-30] MEDS: HYDROmorphone 0.5 MG/0.5 ML SYRINGE IV (18:40)
--- NOTE | 2022-04-30 19:05 | ED.RN ---
this nurse taking over care for patient at this time
[2022-04-30 20:02] VITALS: BP 107/63; PULSE 88; RESP 17; O2SAT 99
[2022-04-30 20:41] VITALS: BP 113/61; PULSE 90; RESP 18; TEMP 37.1; O2SAT 98
[2022-04-30 20:42] VITALS: BMI 21.0
[2022-04-30] MEDS: Ondansetron 4 MG/2 ML Vial IV (22:03)
[2022-04-30] MEDS: MethylPREDNISolone 125 MG/2 ML Vial 80 MG IV (22:04)
[2022-04-30] MEDS: Acetaminophen 500 MG Tablet 1000 MG PO (22:05)
[2022-04-30] MEDS: KCL 20MEQ in 0.45%NS 20 MEQ/1,000 ML IV.SOLN. 150 MEQ IV (22:06)
[2022-04-30] MEDS: 0.9% Saline Lock 10 ML Syringe IV (22:09)
[2022-04-30] MEDS: oxyCODONE 5 MG Tablet PO (22:13)
[2022-05-01] MEDS: MethylPREDNISolone 125 MG/2 ML Vial 80 MG IV ×5 (00:58→23:52)
[2022-05-01] MEDS: 0.9% Saline Lock 10 ML Syringe IV ×4 (01:00→23:53)
[2022-05-01 01:01] VITALS: BP 104/69; PULSE 60; RESP 18; TEMP 36.6; O2SAT 97
[2022-05-01] MEDS: KCL 20MEQ in 0.45%NS 20 MEQ/1,000 ML IV.SOLN. 150 MEQ IV (03:59)
[2022-05-01 06:42] LABS: Absolute Lymphocyte Count 0.82 X10^3/uL (0.83-4.51); Absolute Neutrophil Count 18.6 X10^3/uL (2.0-7.7); Basophil# 0.04 X10^3/uL; Basophil% 0.2 % (0-1); Hematocrit 36.9 % (37-47); Hemoglobin 12.4 g/dL (12.0-15.0); Lymphocyte # 0.82 X10^3/ul (0.83-4.51); Lymphocyte % 4.2 % (19-41); Mean Corp Hgb Conc 33.6 g/dL (32-36); Mean Corpuscular Hgb 31.5 pg (27.0-32.0); Mean Corpuscular Volume 93.7 fL (81-99); Mean Platelet Vol. 8.8 fl (6.2-12.0); Monocyte# 0.11 X10^3/uL; Monocyte% 0.6 % (0-10); NRBC Flagged by Analyzer 0 % (0-5); Neutrophil # 18.55 X10^3/uL (2.7-7.7); Neutrophil % 94.4 % (47-70); Platelet Count 313 K/mm3 (150-450); RBC Distribution Width CV 12.2 % (11.6-14.6); RBC Distribution Width SD 42.5 fl (35.1-43.9); Red Blood Count 3.94 M/mm3 (4.2-5.4); White Blood Count 19.6 K/mm3 (4.4-11.0)
[2022-05-01 06:43] VITALS: BP 112/78; PULSE 64; RESP 18; TEMP 36.5; O2SAT 98
[2022-05-01] MEDS: Dicyclomine 10 MG Capsule 20 MG PO ×3 (06:47→16:50)
[2022-05-01] MEDS: Acetaminophen 500 MG Tablet 1000 MG PO ×3 (06:47→20:36)
[2022-05-01 07:07] LABS: ALB/GLOB Ratio 0.7 RATIO (0.9-2.4); AST(SGOT) 9 U/L (15-37); Alanine Aminotransfer ALT/SGPT 14 U/L (13-56); Albumin, Serum 2.4 g/dL (3.2-5.0); Alkaline Phosphatase 60 U/L (45-117); Anion Gap 8 (5-15); BUN 9 mg/dL (7-18); BUN/Creat Ratio 19.1 RATIO (10-20); Calcium,Total 8.2 mg/dL (8.5-10.1); Chloride 105 mmol/L (98-107); Creatinine, Serum 0.47 mg/dL (0.55-1.02); EST Glomerular Filtration Rate 171 mL/min (>60); Est Glom Filt Rate - Afr Amer 206 mL/min (>60); Globulin 3.3 g/dL (2.2-4.2); Glucose 117 mg/dL (74-106); Magnesium 2.4 mg/dL (1.6-2.6); Potassium 3.6 mmol/L (3.5-5.1); Protein, Total 5.7 g/dL (6.4-8.2); Sodium Level 136 mmol/L (136-145)
[2022-05-01 08:19] VITALS: BP 104/65; PULSE 54; RESP 14; TEMP 36.3; O2SAT 99
--- NOTE | 2022-05-01 09:07 | PN.HOSP_ITS ---
Subjective Subjective Feels much better today, denies any abdominal pain she still has some nausea with liquids Objective Data Objective Data Vital Signs: Vital Signs Temp Pulse Resp BP Pulse Ox O2 Del Method 97.3 F L 54 L 14 104/65 99 Room Air 05/01/22 08:19 05/01/22 08:19 05/01/22 08:19 05/01/22 08:19 05/01/22 08:19 05/01/22 08:19 Oxygen Delivery Method Room Air Weight: 130 lb 8.218 oz Body Mass Index (BMI) 21.0 Intake & Output: Intake and Output for Last 24 Hours 04/30/22 05/01/22 05/02/22 03:59 03:59 03:59 Intake Total 882.5 / 882.5 100 / 100 Balance 882.5 / 882.5 100 / 100 Lab / Micro Data Result Diagrams: 05/01/22 06:35 05/01/22 06:35 Labs: Laboratory Results - last 24 hr 04/30/22 15:50: WBC 23.5 H, RBC 4.17 L, Hgb 13.0, Hct 39.4, MCV 94.5, MCH 31.2, MCHC 33.0, RDW Std Deviation 42.8, RDW Coeff of Renetta 12.3, Plt Count 384, MPV 8.8, Immature Gran % (Auto) 0.600, Neut % (Auto) 85.1 H, Lymph % (Auto) 9.1 L, [place] % (Auto) 4.7, Eos % (Auto) 0.2, Baso % (Auto) 0.3, Absolute Neuts (auto) 20.0 H, Absolute Lymphs (auto) 2.13, Nucleated RBC % 0 04/30/22 15:50: Sodium 141, Potassium 2.7 L*, Chloride 106, Carbon Dioxide 28.0, Anion Gap 7, BUN 5 L, Creatinine 0.57, Estim Creat Clear Calc 141.24, Est GFR (MDRD) Af Amer 164, Est GFR (MDRD) Non-Af 135, BUN/Creatinine Ratio 8.7 L, Glucose 88, Calcium 8.5 04/30/22 15:50: Serum , Qual NEGATIVE 05/01/22 06:35: WBC 19.6 H, RBC 3.94 L, Hgb 12.4, Hct 36.9 L, MCV 93.7, MCH 31.5, MCHC 33.6, RDW Std Deviation 42.5, RDW Coeff of Renetta 12.2, Plt Count 313, MPV 8.8, Immature Gran % (Auto) 0.600, Neut % (Auto) 94.4 H, Lymph % (Auto) 4.2 L, [place] % (Auto) 0.6, Eos % (Auto) 0.0, Baso % (Auto) 0.2, Absolute Neuts (auto) 18.6 H, Absolute Lymphs (auto) 0.82 L, Nucleated RBC % 0 05/01/22 06:35: Sodium 136, Potassium 3.6, Chloride 105, Carbon Dioxide 23.0, Anion Gap 8, BUN 9, Creatinine 0.47 L, Estim Creat Clear Calc 171.00, Est GFR (MDRD) Af Amer 206, Est GFR (MDRD) Non-Af 171, BUN/Creatinine Ratio 19.1, Glucos e 117 H, Calcium 8.2 L, Magnesium 2.4, Total Bilirubin 0.40, AST 9 L, ALT 14, Alkaline Phosphatase 60, Total Protein 5.7 L, Albumin 2.4 L, Globulin 3.3, Albumin/Globulin Ratio 0.7 L Physical Exam Narrative General: Alert, Oriented x3, Cooperative, No apparent distress HEENT: Atraumatic, PERRLA, EOMI, Normocephalic Oral: Moist Mucosa Neck: Supple, No JVD Lungs: Clear to auscultation, Normal air movement, No rhonchi, No wheeze, No rales Cardiovascular: Regular rate, Regular Rhythm, Normal S1, Normal S2, No murmurs Abdomen: Soft, Non Tender, Non-Distended, No Hepato-splenomegaly Extremities: No edema, Capillary Refill Less than 3 Seconds Skin: No rashes, No breakdown Musculoskeletal: No Tenderness to Palpation of Joints or Extremities Neurological: Cranial nerves II-XII grossly intact, Motor Exam 5/5 strength throughout, Sensory exam intact to light touch and pain Psych/Mental Status: Normal Affect, Appropriate Assessment & Plan Assessment/Plan (1) Ulcerative colitis: PLAN: Never quite resolved from last admission. Patient has been taking her prednisone. Discussed with Dr. Priest of gastroenterology, and recommends methylprednisolone 80 mg IV every 6 GI consult Clear liquid diet This is not a surgical abdomen at this time, however if condition deteriorates, consider imaging. PLAN: Plan 1. UC flare ? We will consult gastroenterology for assistance ? Continue with Solu-Medrol 80 mg IV every 6 hours ? Continue the clear liquid diet ? Her abdominal pain is resolved at the moment DVT: SCDs Charges/Coding Visit Charges Inpatient E&M: 01520 Subs Hosp L2
[2022-05-01] MEDS: Ensure Clear 120 ML Liquid PO ×4 (10:18→20:36)
--- NOTE | 2022-05-01 13:37 | CASEMGMT ---
PRICILLA BA Readmission Note Previous Admission:?04/23/22-04/26/22 Diagnosis:? UC Flare DC Disposition: Home Current Admission? Current Diagnosis: UC Flare Pt presented to the ER with abd pain and bloody diarrhea. PRICILLA BA in to pt room, pt sitting up in bed with visitor at bedside. Pt reports that she did obtain her rx from last hospital stay and has been taking as ordered until Saturday when she started vomiting. Pt reports she has not chosen a PCP and does not want another local healthcare directory. Pt states she will set this up on her own. She has not yet made an appt with from last hospital stay. DC instructions stated same day or next day. She is agreeable with this appt being set up for her after this hospital stay. Pt denies any homegoing needs. GI c/s. Pt does not have rx coverage. PRICILLA BA to follow. Plan: Home ?
[2022-05-01 13:48] VITALS: BP 122/79; PULSE 67; RESP 13; TEMP 36.6; O2SAT 99
--- NOTE | 2022-05-01 14:33 | CASEMGMT ---
Patient was at [facility] recently and she was seen by [employer] for self pay status. SW met with patient this visit. Introduced self and role at [facility]. Patient said she is in the process of gathering all the information she needs to submit the Medicaid application. Her mom is helping her get recent bank statements etc. SW did give patient information on [employer], [facility] patient assistance program, and list of prescription assistance programs. Patient said she did pay for all of her discharge medications last visit. Peg RODRÍGUEZ
--- NOTE | 2022-05-01 16:57 | EX.PCM.CON.G ---
HPI Consult Data Date of Consult: 05/01/22 HPI Narrative Reason for Consultation: Ulcerative colitis HPI Narrative: GRANT WEINBERG, is a 26 F who presents after being discharged from the hospital with ulcerative colitis flare. She was having worsening abdominal pain, lower GI bleeding and multiple episodes of diarrhea. She is also been having weight loss, anorexia and fatigue.?2 At the time she underwent a colonoscopy was diagnosed with way ulcerative colitis.? While in the hospital she was on Solu-Medrol 40 mg every 6 hours IV and she went home on 40 mg daily of prednisone only because she does not have any insurance and cannot afford other medication as prescribed except for Bentyl. [facility] Medical History COVID-19 Marijuana use Tobacco abuse Ulcerative colitis Home Medications amoxicillin 875 mg-potassium clavulanate 125 mg tablet 1 tab PO BID #24 tabs 04/25/22 [Rx Last Taken Unknown] dicyclomine 10 mg capsule 20 mg PO TIDAC #90 caps 04/25/22 [Rx Last Taken Unknown] prednisone 20 mg tablet 40 mg PO DAILY #60 tabs 04/25/22 [Rx Last Taken Unknown] Allergy/AdvReac Type Severity Reaction Status Date / Time bee venom protein (honey bee) Allergy Swelling Verified 04/30/22 13:51 codeine Allergy Hives Verified 04/30/22 13:51 Surgical History Hx of tonsillectomy Social History household members: family housing: house Smoking Status: Current every day smoker tobacco type: cigarettes alcohol intake: never substance use type: marijuana ROS Constitutional Constitutional: Reports anorexia; Denies change in weight, chills, fatigue, fever(s), malaise, night sweats, weakness or other Eyes Eyes: Denies blurry vision, change in eye color, change in vision, discharge from eye(s), double vision, erythema, eye pain, loss of vision or other ENT HEENT: Denies abnormal hearing, dysphagia, ear pain, epistaxis, headache(s), hearing loss, nasal congestion, nasal discharge, post nasal drip, sinus pressure, sore throat or other Cardiovascular Cardiovascular: Denies chest pain, claudication, dyspnea on exertion, edema, lightheadedness, orthopnea, palpitations, paroxysmal nocturnal dyspnea, rapid heart rate, syncope or other Respiratory/Chest Respiratory/Chest: Denies cough, dyspnea, excessive phlegm production, hemoptysis, productive cough, shortness of breath at rest, shortness of breath with exertion, wheezing or other Gastrointestinal Gastrointestinal: Reports abdominal pain, diarrhea, hematochezia, nausea and vomiting; Denies coffee ground emesis, constipation, dyspepsia, hematemesis, loose stools, melena or other Genitourinary Genitourinary: Denies burning urination, difficulty urinating, dysuria, hematuria, nocturia, urinary frequency, urinary hesitancy, urinary incontinence, urinary urgency or other Musculoskeletal Musculoskeletal: Denies arthralgias, back pain, joint pain, joint stiffness, joint swelling, myalgias, neck pain or other Neurologic Neurologic: Denies abnormal gait, abnormal speech, confusion, disequilibrium, dizziness, focal weakness, headache(s), numbness, paresthesias, seizure-like activity, seizures, syncope, tingling, tremor(s) or other Psychiatric Psychiatric: Denies anxiety, depression, homicidal ideation, suicidal ideation or other Endocrine Endocrinology: Denies change in body appearance, cold intolerance, excessive sweating, heat intolerance, polydipsia, polyuria or other Hematologic/Lymphatic Hematologic/Lymphatic: Denies anemia, easy bleeding, easy bruising, lymphadenopathy or other Allergic/Immunologic Allergic/Immunologic: Denies rhinitis, hives, eczemia, asthma or other Physical Exam Narrative General: Alert, Oriented x3, Cooperative, No apparent distress HEENT: Atraumatic, PERRLA, EOMI, Normocephalic Oral: Moist Mucosa Neck: Supple, No JVD Lungs: Clear to auscultation, Normal air movement, No rhonchi, No wheeze, No rales Cardiovascular: Regular rate, Regular Rhythm, Normal S1, Normal S2, No murmurs Abdomen: Soft, Non Tender, Non-Distended, No Hepato-splenomegaly Extremities: No edema, Capillary Refill Less than 3 Seconds Skin: No rashes, No breakdown Musculoskeletal: No Tenderness to Palpation of Joints or Extremities Neurological: Cranial nerves II-XII grossly intact, Motor Exam 5/5 strength throughout, Sensory exam intact to light touch and pain Psych/Mental Status: Normal Affect, Appropriate Medical Records Data Medical Nutrition Assessment Dietitian: Malnutrition Criteria Met Start: 05/01/22 10:50 Freq: Status: Active Protocol: Document 05/01/22 10:51 AG (Rec: 05/01/22 10:51 AG [id number]) Nutrition Malnutrition Evidence of Malnutrition Exists Yes Malnutrition (severe): Acute Illness/Injury Evidenced By Suboptimal Energy Intake ( Severe),Weight Loss (Severe) Clinical Problem Acute Disease or Injury Related Malnutrition Etiology severe, acute malnutrition related to inadequate energy intake d/t UC flare Signs/Symptoms as evidenced by unintentional wt loss of 4.1#/3% x 8 days; estimated PO intake meeting < 50% of estimated energy needs > 5 days Status Active Problem Recommendation Dietitian Recommendations/Changes recommend advance diet as tolerated to regular/fiber restricted; willl add 120mL ensure clear 4x/day w/ medpass while on clear liquid diet Lab / Micro Data Result Diagrams: 05/01/22 06:35 05/01/22 06:35 Labs: Laboratory Results - last 24 hr 05/01/22 06:35: WBC 19.6 H, RBC 3.94 L, Hgb 12.4, Hct 36.9 L, MCV 93.7, MCH 31.5, MCHC 33.6, RDW Std Deviation 42.5, RDW Coeff of Renetta 12.2, Plt Count 313, MPV 8.8, Immature Gran % (Auto) 0.600, Neut % (Auto) 94.4 H, Lymph % (Auto) 4.2 L, [place] % (Auto) 0.6, Eos % (Auto) 0.0, Baso % (Auto) 0.2, Absolute Neuts (auto) 18.6 H, Absolute Lymphs (auto) 0.82 L, Nucleated RBC % 0 05/01/22 06:35: Sodium 136, Potassium 3.6, Chloride 105, Carbon Dioxide 23.0, Anion Gap 8, BUN 9, Creatinine 0.47 L, Estim Creat Clear Calc 171.00, Est GFR (MDRD) Af Amer 206, Est GFR (MDRD) Non-Af 171, BUN/Creatinine Ratio 19.1, Glucose 117 H, Calcium 8.2 L, Magnesium 2.4, Total Bilirubin 0.40, AST 9 L, ALT 14, Alkaline Phosphatase 60, Total Protein 5.7 L, Albumin 2.4 L, Globulin 3.3, Albumin/Globulin Ratio 0.7 L Assessment & Plan Assessment/Plan (1) Enlarged pancreas: PLAN: Unsure the etiology of her large pancreas. This was diagnosed on last visit. she does not exhibit any signs or symptoms of autoimmune pancreatitis. She does not drink any alcohol. Typically also colitis does not involve the pancreas. Her IgG4 level is pending but her CALISTA, serum gammaglobulins are not within normal limits (2) Abdominal pain: PLAN: Abdominal pain likely secondary to ulcerative colitis flare. (3) Rectal bleeding: PLAN: secondary to ulcerative colitis. Recommend continue Solu-Medrol 80 mg IV every 6 hours. we sent off labs and she wants to undergo Stelara treatment. Hopefully we will be able to get that approved for her. (4) Leukocytosis: PLAN: . Leukocytosis likely secondary to leukemoid reaction. However I do agree with continued antibiotics at this time. (5) Anemia: PLAN: Anemia likely secondary to GI bleed. Charges/Coding Visit Charges Inpatient E&M: 51383 Init Hosp L3
[2022-05-01 20:33] VITALS: BP 110/70; PULSE 65; RESP 14; TEMP 36.6; O2SAT 98
[2022-05-02 03:30] VITALS: BP 121/80; PULSE 66; RESP 15; TEMP 36.5; O2SAT 98
[2022-05-02] MEDS: Acetaminophen 500 MG Tablet 1000 MG PO ×3 (05:44→20:56)
[2022-05-02] MEDS: oxyCODONE 5 MG Tablet PO (05:44)
[2022-05-02] MEDS: Dicyclomine 10 MG Capsule 20 MG PO ×3 (05:44→15:14)
[2022-05-02] MEDS: MethylPREDNISolone 125 MG/2 ML Vial 80 MG IV ×4 (05:46→23:11)
[2022-05-02] MEDS: 0.9% Saline Lock 10 ML Syringe IV ×3 (05:47→11:21)
[2022-05-02] MEDS: Ondansetron 4 MG/2 ML Vial IV (06:16)
[2022-05-02 06:19] LABS: Absolute Lymphocyte Count 1.15 X10^3/uL (0.83-4.51); Absolute Neutrophil Count 20.7 X10^3/uL (2.0-7.7); Basophil# 0.05 X10^3/uL; Basophil% 0.2 % (0-1); Hematocrit 33.8 % (37-47); Hemoglobin 11.4 g/dL (12.0-15.0); Lymphocyte # 1.15 X10^3/ul (0.83-4.51); Lymphocyte % 5.1 % (19-41); Mean Corp Hgb Conc 33.7 g/dL (32-36); Mean Corpuscular Hgb 31.8 pg (27.0-32.0); Mean Corpuscular Volume 94.4 fL (81-99); Mean Platelet Vol. 9.2 fl (6.2-12.0); Monocyte# 0.68 X10^3/uL; NRBC Flagged by Analyzer 0 % (0-5); Neutrophil # 20.73 X10^3/uL (2.7-7.7); Neutrophil % 91.2 % (47-70); POSITIVE DIFFERENTIAL YES; Platelet Count 341 K/mm3 (150-450); RBC Distribution Width CV 12.4 % (11.6-14.6); RBC Distribution Width SD 42.6 fl (35.1-43.9); Red Blood Count 3.58 M/mm3 (4.2-5.4); White Blood Count 22.7 K/mm3 (4.4-11.0)
[2022-05-02 06:36] LABS: Differential Indicated SCAN CRITERIA MET
[2022-05-02 06:48] LABS: Anion Gap 6 (5-15); BUN 8 mg/dL (7-18); BUN/Creat Ratio 18.3 RATIO (10-20); Calcium,Total 8.3 mg/dL (8.5-10.1); Chloride 108 mmol/L (98-107); Creatinine, Serum 0.44 mg/dL (0.55-1.02); EST Glomerular Filtration Rate 185 mL/min (>60); Est Glom Filt Rate - Afr Amer 224 mL/min (>60); Estimated Creatinine Clearance 182.66 ml/min; Glucose 154 mg/dL (74-106); Potassium 3.7 mmol/L (3.5-5.1); Sodium Level 140 mmol/L (136-145)
[2022-05-02 08:41] LABS: Differential Comment SCANNED
[2022-05-02] MEDS: Amox/Clavulanate 875 MG Tablet PO (08:59)
[2022-05-02] MEDS: Ensure Clear 120 ML Liquid PO ×4 (08:59→20:58)
[2022-05-02 09:00] VITALS: BP 100/72; PULSE 76; RESP 16; TEMP 36.7; O2SAT 98
--- NOTE | 2022-05-02 09:05 | PCM.PN.HOSP ---
Subjective Subjective A little bit of nausea and abdominal pain today Objective Data Objective Data Vital Signs: Vital Signs Temp Pulse Resp BP Pulse Ox O2 Del Method 97.7 F L 66 15 121/80 H 98 Room Air 05/02/22 03:30 05/02/22 03:30 05/02/22 03:30 05/02/22 03:30 05/02/22 03:30 05/02/22 03:30 Oxygen Delivery Method Room Air Weight: 130 lb 8.218 oz Body Mass Index (BMI) 21.0 Intake & Output: Intake and Output for Last 24 Hours 05/01/22 05/02/22 05/03/22 03:59 03:59 03:59 Intake Total 882.5 / 882.5 1280 / 1280 Output Total 2 / 2 Balance 882.5 / 882.5 1278 / 1278 Medical Nutrition Assessment Dietitian: Malnutrition Criteria Met Start: 05/01/22 10:50 Freq: Status: Active Protocol: Document 05/01/22 10:51 AG (Rec: 05/01/22 10:51 AG [id number]) Nutrition Malnutrition Evidence of Malnutrition Exists Yes Malnutrition (severe): Acute Illness/Injury Evidenced By Suboptimal Energy Intake ( Severe),Weight Loss (Severe) Clinical Problem Acute Disease or Injury Related Malnutrition Etiology severe, acute malnutrition related to inadequate energy intake d/t UC flare Signs/Symptoms as evidenced by unintentional wt loss of 4.1#/3% x 8 days; estimated PO intake meeting < 50% of estimated energy needs > 5 days Status Active Problem Recommendation Dietitian Recommendations/Changes recommend advance diet as tolerated to regular/fiber restricted; willl add 120mL ensure clear 4x/day w/ medpass while on clear liquid diet Lab / Micro Data Result Diagrams: 05/02/22 05:30 05/02/22 05:30 Labs: Laboratory Results - last 24 hr 05/02/22 05:30: WBC 22.7 H, RBC 3.58 L, Hgb 11.4 L, Hct 33.8 L, MCV 94.4, MCH 31.8, MCHC 33.7, RDW Std Deviation 42.6, RDW Coeff of Renetta 12.4, Plt Count 341, MPV 9.2, Immature Gran % (Auto) 0.500, Neut % (Auto) 91.2 H, Lymph % (Auto) 5.1 L, [place] % (Auto) 3.0, Eos % (Auto) 0.0, Baso % (Auto) 0.2, Absolute Neuts (auto) 20.7 H, Absolute Lymphs (auto) 1.15, Nucleated RBC % 0, Differential Comment SCANNED 05/02/22 05:30: Sodium 140, Potassium 3.7, Chloride 108 H, Carbon Dioxide 26.0, Anion Gap 6, BUN 8, Creatinine 0.44 L, Estim Creat Clear Calc 182.66, Est GFR (MDRD) Af Amer 224, Est GFR (MDRD) Non-Af 185, BUN/Creatinine Ratio 18.3, Glucose 154 H, Calcium 8.3 L Physical Exam Narrative General: Alert, Oriented x3, Cooperative, No apparent distress HEENT: Atraumatic, PERRLA, EOMI, Normocephalic Oral: Moist Mucosa Neck: Supple, No JVD Lungs: Clear to auscultation, Normal air movement, No rhonchi, No wheeze, No rales Cardiovascular: Regular rate, Regular Rhythm, Normal S1, Normal S2, No murmurs Abdomen: Soft, Non Tender, Non-Distended, No Hepato-splenomegaly Extremities: No edema, Capillary Refill Less than 3 Seconds Skin: No rashes, No breakdown Musculoskeletal: No Tenderness to Palpation of Joints or Extremities Neurological: Cranial nerves II-XII grossly intact, Motor Exam 5/5 strength throughout, Sensory exam intact to light touch and pain Psych/Mental Status: Normal Affect, Appropriate Assessment & Plan Assessment/Plan (1) Ulcerative colitis: PLAN: Plan 1. UC flare ? We will consult gastroenterology for assistance ? Continue with Solu-Medrol 80 mg IV every 6 hours ? Continue the clear liquid diet ? We will restart her Augmentin as her white count has gone up DVT: SCDs Charges/Coding Visit Charges Inpatient E&M: 55046 Subs Hosp L2
--- NOTE | 2022-05-02 10:23 | CASEMGMT ---
Addendum entered by Yazmin Kathleen 05/02/22 11:32: Received call back from Lisa who states the application can be faxed to their office at [phone]. Faxed at this time. She states typically the patient can give the med themselves or come into the office. No HHC needs set up for the med. Original Note: Charge nurse provided RN CM Patient Assistance Program Application for Stelara. Pt completed application. TC to 's office, left message to verify where application should be sent to and inquiring about infusion. Will await returned call.
[2022-05-02 14:49] LABS: Erythrocyte Sedimentation Rate 9 mm/hr (0-30)
[2022-05-02 15:00] VITALS: BP 110/59; PULSE 70; RESP 16; TEMP 36.8; O2SAT 99
[2022-05-02 15:10] LABS: Amylase 21 U/L (25-115); LDH 130 U/L (84-246); Lipase 69 U/L (73-393)
[2022-05-02] MEDS: 0.9% Normal Saline 1,000 ML 100 ML IV (16:23)
--- NOTE | 2022-05-02 16:49 | PN_ITS ---
Subjective Subjective Patient is still having diarrhea. The bloody diarrhea has significantly reduced. The abdominal pain has significantly reduced also. She is tolerating a full liquid diet. Objective Data Objective Data Vital Signs: Vital Signs Temp Pulse Resp BP Pulse Ox O2 Del Method 98.2 F 70 16 110/59 L 99 Room Air 05/02/22 15:00 05/02/22 15:00 05/02/22 15:00 05/02/22 15:00 05/02/22 15:00 05/02/22 15:00 Oxygen Delivery Method Room Air Weight: 130 lb 8.218 oz Body Mass Index (BMI) 21.0 Intake & Output: Intake and Output for Last 24 Hours 04/30/22 05/01/22 05/02/22 23:59 23:59 23:59 Intake Total 2.5 / 2162.5 440 / 440 Output Total 2 / 2 Balance 1961. / 0.5 438 / 438 Medical Nutrition Assessment Dietitian: Malnutrition Criteria Met Start: 05/01/22 10:50 Freq: Status: Active Protocol: Document 05/01/22 10:51 AG (Rec: 05/01/22 10:51 AG [id number]) Nutrition Malnutrition Evidence of Malnutrition Exists Yes Malnutrition (severe): Acute Illness/Injury Evidenced By Suboptimal Energy Intake ( Severe),Weight Loss (Severe) Clinical Problem Acute Disease or Injury Related Malnutrition Etiology severe, acute malnutrition related to inadequate energy intake d/t UC flare Signs/Symptoms as evidenced by unintentional wt loss of 4.1#/3% x 8 days; estimated PO intake meeting < 50% of estimated energy needs > 5 days Status Active Problem Recommendation Dietitian Recommendations/Changes recommend advance diet as tolerated to regular/fiber restricted; willl add 120mL ensure clear 4x/day w/ medpass while on clear liquid diet Lab / Micro Data Result Diagrams: 05/02/22 05:30 05/02/22 05:30 Labs: Laboratory Results - last 24 hr 05/02/22 05:30: WBC 22.7 H, RBC 3.58 L, Hgb 11.4 L, Hct 33.8 L, MCV 94.4, MCH 31.8, MCHC 33.7, RDW Std Deviation 42.6, RDW Coeff of Renetta 12.4, Plt Count 341, MPV 9.2, Immature Gran % (Auto) 0.500, Neut % (Auto) 91.2 H, Lymph % (Auto) 5.1 L, [place] % (Auto) 3.0, Eos % (Auto) 0.0, Baso % (Auto) 0.2, Absolute Neuts (auto) 20.7 H, Absolute Lymphs (auto) 1.15, Nucleated RBC % 0, Differential Comment SCANNED 05/02/22 05:30: Sodium 140, Potassium 3.7, Chloride 108 H, Carbon Dioxide 26.0, Anion Gap 6, BUN 8, Creatinine 0.44 L, Estim Creat Clear Calc 182.66, Est GFR (MDRD) Af Amer 224, Est GFR (MDRD) Non-Af 185, BUN/Creatinine Ratio 18.3, Glucose 154 H, Calcium 8.3 L 05/02/22 14:40: ESR 9 05/02/22 14:40: Lactate Dehydrogenase 130, C-React Prot Ext Range 34.60 H, Amylase 21 L, Lipase 69 L 05/02/22 14:40: Lactic Acid 4.0 H* Physical Exam Narrative General: Alert, Oriented x3, Cooperative, No apparent distress HEENT: Atraumatic, PERRLA, EOMI, Normocephalic Oral: Moist Mucosa Neck: Supple, No JVD Lungs: Clear to auscultation, Normal air movement, No rhonchi, No wheeze, No rales Cardiovascular: Regular rate, Regular Rhythm, Normal S1, Normal S2, No murmurs Abdomen: Soft, Non Tender, Non-Distended, No Hepato-splenomegaly Extremities: No edema, Capillary Refill Less than 3 Seconds Skin: No rashes, No breakdown Musculoskeletal: No Tenderness to Palpation of Joints or Extremities Neurological: Cranial nerves II-XII grossly intact, Motor Exam 5/5 strength throughout, Sensory exam intact to light touch and pain Psych/Mental Status: Normal Affect, Appropriate Assessment & Plan Assessment/Plan (1) Enlarged pancreas: PLAN: Unsure the etiology of her large pancreas. This was diagnosed on last visit. she does not exhibit any signs or symptoms of autoimmune pancreatitis. She does not drink any alcohol. Typically also colitis does not involve the pancreas. Her IgG4 level is pending but her CALISTA, serum gammaglobulins are not within normal limits (2) Abdominal pain: PLAN: Abdominal pain likely secondary to ulcerative colitis flare. (3) Rectal bleeding: PLAN: secondary to ulcerative colitis. Recommend continue Solu-Medrol 80 mg IV every 6 hours. we sent off labs and she wants to undergo Stelara treatment. Hopefully we will be able to get that approved for her. (4) Leukocytosis: PLAN: . Leukocytosis likely secondary to leukemoid reaction. However I do agree with continued antibiotics at this time. Recommend to check stool culture s and blood cultures. (5) Anemia: PLAN: Anemia likely secondary to GI bleed. Hemoglobin seems to be stable. Charges/Coding Visit Charges Inpatient E&M: 80691 Subs Hosp L3
[2022-05-02 18:04] LABS: Red Blood Cells-Urine 0 SEEN /hpf (0-5); White Blood Cells 0 SEEN /hpf (0-5)
[2022-05-02 18:13] LABS: Color, Urine Yellow (Yellow); Glucose, Dipstick 100 mg/dl (Normal); Ketone-Dipstick 5 mg/dl (Negative); Leukocyte Esterase-Dipstick Negative /ul (Negative); Nitrite-Dipstick Negative (Negative); Occult Blood-Urine Negative /ul (Negative); Protein-Dipstick 30 mg/dl (Negative); Urine Bilirubin Dipstick Negative (Negative); Urine Clarity Sl. Cloudy (Clear); Urine Urobilinogen 1 mg/dl (Normal); Urine pH 6.5 (5.0 - 8.0)
[2022-05-02 18:42] LABS: Bacteria RARE /hpf (None Seen); Mucous, Urine 1+ /hpf (<or=2+); Other Crystals-Urine 2+ /hpf (None Seen); Squamous Epithelial Cells - UA 0-5 SEEN /hpf (5-10)
[2022-05-02 18:45] LABS: Reflex Lactate? Y
[2022-05-02 20:02] LABS: Lactic Acid 4.1 mmol/L (0.4-1.9)
[2022-05-02 20:54] VITALS: BP 118/70; PULSE 70; RESP 16; TEMP 36.6; O2SAT 100
--- NOTE | 2022-05-02 20:55 | PCM.PN.BLA ---
Progress Note With a persistent lactic acidosis will give normal saline bolus. We will change antibiotics. Stop Augmentin. Ciprofloxacin plus Flagyl ordered. Of note patient does not meet SIRS criteria and cannot be classified as septic shock. Trend lactic acid.
[2022-05-02] MEDS: 0.9% Normal Saline 1,000 ML 999 ML IV ×2 (21:03→22:09)
[2022-05-02] MEDS: metroNIDAZOLE 500 MG/100 ML BAG 100 MG IV (21:50)
[2022-05-02] MEDS: levoFLOXacin IV 750 MG/150 ML BAG 100 MG IV (23:10)
[2022-05-03] MEDS: 0.9% Normal Saline 1,000 ML 100 ML IV ×3 (02:47→22:26)
[2022-05-03 02:48] VITALS: BP 114/89; PULSE 61; RESP 14; TEMP 36.6; O2SAT 98
[2022-05-03] MEDS: Ondansetron 4 MG/2 ML Vial IV (04:13)
[2022-05-03] MEDS: MethylPREDNISolone 125 MG/2 ML Vial 80 MG IV ×3 (05:34→22:35)
[2022-05-03] MEDS: metroNIDAZOLE 500 MG/100 ML BAG 100 MG IV ×3 (05:34→22:26)
[2022-05-03] MEDS: Dicyclomine 10 MG Capsule 20 MG PO ×3 (05:35→15:38)
[2022-05-03] MEDS: Acetaminophen 500 MG Tablet 1000 MG PO ×3 (05:35→22:27)
--- NOTE | 2022-05-03 05:57 | NURSING ---
Patient stated she has had trouble urinating and feels her bladder is full and unable to go. Bladder scanned patient for 6 ML.
[2022-05-03 06:50] LABS: Lactic Acid 1.7 mmol/L (0.4-1.9)
[2022-05-03 09:00] VITALS: BP 110/62; PULSE 46; RESP 16; TEMP 36.8; O2SAT 100
--- NOTE | 2022-05-03 09:18 | PN.HOSP_ITS ---
Subjective Subjective Pain is better, as his nausea Objective Data Objective Data Vital Signs: Vital Signs Temp Pulse Resp BP Pulse Ox O2 Del Method 97.8 F 61 14 114/89 H 98 Room Air 05/03/22 02:48 05/03/22 02:48 05/03/22 02:48 05/03/22 02:48 05/03/22 02:48 05/03/22 02:48 Oxygen Delivery Method Room Air Weight: 130 lb 8.218 oz Body Mass Index (BMI) 21.0 Intake & Output: Intake and Output for Last 24 Hours 05/02/22 05/03/22 05/04/22 03:59 03:59 03:59 Intake Total 1280 / 1280 4130 / 4130 340 / 340 Output Total 2 250 / 250 Balance 1278 / 1278 4130 / 4130 90 / 90 Medical Nutrition Assessment Dietitian: Malnutrition Criteria Met Start: 05/01/22 10:50 Freq: Status: Active Protocol: Document 05/01/22 10:51 AG (Rec: 05/01/22 10:51 AG [id number]) Nutrition Malnutrition Evidence of Malnutrition Exists Yes Malnutrition (severe): Acute Illness/Injury Evidenced By Suboptimal Energy Intake ( Severe),Weight Loss (Severe) Clinical Problem Acute Disease or Injury Related Malnutrition Etiology severe, acute malnutrition related to inadequate energy intake d/t UC flare Signs/Symptoms as evidenced by unintentional wt loss of 4.1#/3% x 8 days; estimated PO intake meeting < 50% of estimated energy needs > 5 days Status Active Problem Recommendation Dietitian Recommendations/Changes recommend advance diet as tolerated to regular/fiber restricted; willl add 120mL ensure clear 4x/day w/ medpass while on clear liquid diet Lab / Micro Data Result Diagrams: 05/02/22 05:30 05/02/22 05:30 Labs: Laboratory Results - last 24 hr 05/02/22 14:40: ESR 9 05/02/22 14:40: Lactate Dehydrogenase 130, C-React Prot Ext Range 34.60 H, Amylase 21 L, Lipase 69 L 05/02/22 14:40: Lactic Acid 4.0 H* 05/02/22 17:53: Urine Color Yellow, Urine Clarity Sl. Cloudy, Urine pH 6.5, Ur Specific [place] 1.020, Urine Protein 30 H, Urine Glucose (UA) 100 H, Urine Ketones 5 H, Urine Occult Blood Negative, Urine Nitrite Negative, Urine Bilirubin Negative, Urine Urobilinogen 1 H, Ur Leukocyte Esterase Negative, Urine RBC 0 SEEN, Urine WBC 0 SEEN, Ur Squamous Epith Cells 0-5 SEEN, Other Crystals 2+, Urine Bacteria RARE, Urine Mucus 1+ 05/02/22 19:20: Lactic Acid 4.1 H* 05/03/22 05:50: Lactic Acid 1.7 Micro: Microbiology 04/24/22 Unknown Stool Ova and Parasites - Final Physical Exam Narrative General: Alert, Oriented x3, Cooperative, No apparent distress HEENT: Atraumatic, PERRLA, EOMI, Normocephalic Oral: Moist Mucosa Neck: Supple, No JVD Lungs: Clear to auscultation, Normal air movement, No rhonchi, No wheeze, No rales Cardiovascular: Regular rate, Regular Rhythm, Normal S1, Normal S2, No murmurs Abdomen: Soft, Non Tender, Non-Distended, No Hepato-splenomegaly Extremities: No edema, Capillary Refill Less than 3 Seconds Skin: No rashes, No breakdown Musculoskeletal: No Tenderness to Palpation of Joints or Extremities Neurological: Cranial nerves II-XII grossly intact, Motor Exam 5/5 strength throughout, Sensory exam intact to light touch and pain Psych/Mental Status: Normal Affect, Appropriate Assessment & Plan Assessment/Plan (1) Ulcerative colitis: PLAN: Plan 1. UC flare ? We will consult gastroenterology for assistance ? We will decrease steroids to every 8 hours ? Continue the clear liquid diet ? She was started on IV fluids yesterday because of an elevated lactate, she started on broad-spectrum antibiotics overnight and I obtained blood cultures this morning. UA is not consistent with UTI. Still unconvinced that she has an infection but will continue with antibiotics while pending culture data ? Enteric pathogen panel is pending ? She did bring in the paperwork to get approval for [facility] as an outpatient DVT: SCDs Charges/Coding Visit Charges Inpatient E&M: 38803 Subs Hosp L2
[2022-05-03] MEDS: Ensure Clear 120 ML Liquid PO ×4 (09:27→22:26)
[2022-05-03 10:15] LABS: Erythrocyte Sedimentation Rate 3 mm/hr (0-30)
--- NOTE | 2022-05-03 10:41 | CASEMGMT ---
Addendum entered by Kvng Sandhu 05/03/22 15:55: Pt voices understanding of below information, stating she spoke w/nurse from Dr Priest's office and was provided w/the same information. She denies having further questions. Addendum entered by Kvng Sandhu 05/03/22 15:08: Call received from Marcos @ [facility] pharmacy re: script for Stelara that was e-scribed to them. Call placed to Dr Priest's office and spoke w/Lora. Pt to receive a pharmacy card/voucher from [facility] [employer] to cover the cost of the Stelara injection @ [facility] pharmacy. Lora states it may take up to 8 wks for pt to receive this card. Dr Priest's office to provide pt instructions on when she is to receive the Stelara injection that she picks up from [facility] pharmacy. Pt can then warehouse order picker the medication/injection @ [facility] pharmacy and use the card/voucher to cover the cost. Call placed to Marcos in [facility] retail pharmacy and he was made aware. He states he will place the order on hold. He requests pt contact them, once she has the card/voucher, and at least a few days before the injection is due, as they will need to order the medication in. Pt made aware. Per Nelson Paulino also to deliver Stelara infusion to [facility] and pt to receive first infusion there 05/11. PRICILLA BA spoke w/uQita @ [facility]. She was made aware Nelson to be delivering Stelara infusions to them. She states she just spoke w/Dr Priest's office and was also provided w/this info. She verifies the first infusion is scheduled for 05/11. PRICILLA BA to pt's room. She states she has spoken w/PRICILLA Paulino @ Dr Priest's office, and was made aware of the above. Original Note: PRICILLA BA NOTE: Call placed to Dr Priest's office. Appt made w/Dr Priest 05/09 @ 11:45 AM. This was entered into pt's discharge plan. Per nurse @ Dr Priest's office, pt was approved for Stela and [facility] to contact pt to set up OP infusion. Pt made aware of above and provided /[facility] address and contact info. She voices appreciation and denies having further quetions. Rasheed CALLESN RN CM
[2022-05-03 15:42] VITALS: BP 113/55; PULSE 75; RESP 16; TEMP 36.8; O2SAT 99
--- NOTE | 2022-05-03 17:20 | PN_ITS ---
Subjective Subjective Patient is actually feeling very well and would like to try to eat solid food. She is still having loose stools but the bloody diarrhea has substantially subsided. Objective Data Objective Data Vital Signs: Vital Signs Temp Pulse Resp BP Pulse Ox O2 Del Method 98.3 F 75 16 113/55 L 99 Room Air 05/03/22 15:42 05/03/22 15:42 05/03/22 15:42 05/03/22 15:42 05/03/22 15:42 05/03/22 15:42 Oxygen Delivery Method Room Air Weight: 130 lb 8.218 oz Body Mass Index (BMI) 21.0 Intake & Output: Intake and Output for Last 24 Hours 05/01/22 05/02/22 05/03/22 23:59 23:59 23:59 Intake Total 1962.5 / 2162.5 2940 / 3180 3110 / 3110 Output Total 2 / 2 450 / 450 Balance 1962.5 / 2160.5 2938 / 3178 2660 / 2660 Medical Nutrition Assessment Dietitian: Malnutrition Criteria Met Start: 05/01/22 10:50 Freq: Status: Active Protocol: Document 05/01/22 10:51 AG (Rec: 05/01/22 10:51 AG [id number]) Nutrition Malnutrition Evidence of Malnutrition Exists Yes Malnutrition (severe): Acute Illness/Injury Evidenced By Suboptimal Energy Intake ( Severe),Weight Loss (Severe) Clinical Problem Acute Disease or Injury Related Malnutrition Etiology severe, acute malnutrition related to inadequate energy intake d/t UC flare Signs/Symptoms as evidenced by unintentional wt loss of 4.1#/3% x 8 days; estimated PO intake meeting < 50% of estimated energy needs > 5 days Status Active Problem Recommendation Dietitian Recommendations/Changes recommend advance diet as tolerated to regular/fiber restricted; willl add 120mL ensure clear 4x/day w/ medpass while on clear liquid diet Lab / Micro Data Result Diagrams: 05/02/22 05:30 05/02/22 05:30 Labs: Laboratory Results - last 24 hr 05/02/22 17:53: Urine Color Yellow, Urine Clarity Sl. Cloudy, Urine pH 6.5, Ur Specific [place] 1.020, Urine Protein 30 H, Urine Glucose (UA) 100 H, Urine Ketones 5 H, Urine Occult Blood Negative, Urine Nitrite Negative, Urine Bilirubin Negative, Urine Urobilinogen 1 H, Ur Leukocyte Esterase Negative, Urine RBC 0 SEEN, Urine WBC 0 SEEN, Ur Squamous Epith Cells 0-5 SEEN, Other Crystals 2+, Urine Bacteria RARE, Urine Mucus 1+ 05/02/22 19:20: Lactic Acid 4.1 H* 05/03/22 05:50: Lactic Acid 1.7 05/03/22 05:50: ESR 3 05/03/22 05:50: C-React Prot Ext Range 15.00 H Micro: Microbiology 05/03/22 12:39 Stool C. difficile DNA Amplification - Final 05/03/22 12:39 Stool Enteric Bacteriology - Final 05/03/22 12:39 Stool Stool Lactoferrin - Final 04/24/22 Unknown Stool Ova and Parasites - Final Physical Exam Narrative General: Alert, Oriented x3, Cooperative, No apparent distress HEENT: Atraumatic, PERRLA, EOMI, Normocephalic Oral: Moist Mucosa Neck: Supple, No JVD Lungs: Clear to auscultation, Normal air movement, No rhonchi, No wheeze, No rales Cardiovascular: Regular rate, Regular Rhythm, Normal S1, Normal S2, No murmurs Abdomen: Soft, Non Tender, Non-Distended, No Hepato-splenomegaly Extremities: No edema, Capillary Refill Less than 3 Seconds Skin: No rashes, No breakdown Musculoskeletal: No Tenderness to Palpation of Joints or Extremities Neurological: Cranial nerves II-XII grossly intact, Motor Exam 5/5 strength throughout, Sensory exam intact to light touch and pain Psych/Mental Status: Normal Affect, Appropriate Assessment & Plan Assessment/Plan (1) Enlarged pancreas: PLAN: Unsure the etiology of her large pancreas. This was diagnosed on last visit. she does not exhibit any signs or symptoms of autoimmune pancreatitis. She does not drink any alcohol. Typically also colitis does not involve the pancreas. Her IgG4 level is pending but her CALISTA, serum gammaglobulins are not within normal limits (2) Abdominal pain: PLAN: Abdominal pain likely secondary to ulcerative colitis flare. 3/2: Pain is almost a 1 out of 10. (3) Rectal bleeding: PLAN: secondary to ulcerative colitis. Recommend continue Solu-Medrol 80 mg IV every 6 hours. we sent off labs and she wants to undergo Stelara treatment. Hopefully we will be able to get that approved for her. 3: I told her that hopefully she will be able to go home tomorrow on 80 mg of steroids per day. We are working on getting her Stelara at an outpatient infusion center for her first dose in the next several days and she will get subcutaneous injection in office every 8 weeks. (4) Leukocytosis: PLAN: . Leukocytosis likely secondary to leukemoid reaction. However I do agree with continued antibiotics at this time. Recommend to check stool cultures and blood cultures. (5) Anemia: PLAN: Anemia likely secondary to GI bleed. Hemoglobin seems to be stable. Charges/Coding Visit Charges Inpatient E&M: 92671 Subs Hosp L3
[2022-05-03 22:30] VITALS: BP 118/60; PULSE 68; RESP 16; TEMP 36.6; O2SAT 99
[2022-05-03] MEDS: levoFLOXacin IV 750 MG/150 ML BAG 100 MG IV (22:36)
[2022-05-04 06:00] VITALS: BP 126/89; PULSE 82; RESP 18; TEMP 36.6; O2SAT 98
[2022-05-04] MEDS: MethylPREDNISolone 125 MG/2 ML Vial 80 MG IV (06:07)
[2022-05-04] MEDS: metroNIDAZOLE 500 MG/100 ML BAG 100 MG IV (06:07)
[2022-05-04] MEDS: Dicyclomine 10 MG Capsule 20 MG PO (06:08)
[2022-05-04] MEDS: Acetaminophen 500 MG Tablet 1000 MG PO (06:08)
[2022-05-04 06:53] LABS: Absolute Lymphocyte Count 1.11 X10^3/uL (0.83-4.51); Absolute Neutrophil Count 15.4 X10^3/uL (2.0-7.7); Basophil# 0.03 X10^3/uL; Basophil% 0.2 % (0-1); Hematocrit 35.8 % (37-47); Hemoglobin 11.5 g/dL (12.0-15.0); Lymphocyte # 1.11 X10^3/ul (0.83-4.51); Lymphocyte % 6.4 % (19-41); Mean Corp Hgb Conc 32.1 g/dL (32-36); Mean Corpuscular Volume 96.5 fL (81-99); Monocyte% 2.9 % (0-10); NRBC Flagged by Analyzer 0 % (0-5); Neutrophil # 15.39 X10^3/uL (2.7-7.7); Neutrophil % 88.8 % (47-70); Platelet Count 321 K/mm3 (150-450); RBC Distribution Width CV 13.4 % (11.6-14.6); RBC Distribution Width SD 47.8 fl (35.1-43.9); Red Blood Count 3.71 M/mm3 (4.2-5.4); White Blood Count 17.3 K/mm3 (4.4-11.0)
[2022-05-04 07:25] LABS: Anion Gap 5 (5-15); BUN 15 mg/dL (7-18); BUN/Creat Ratio 28.7 RATIO (10-20); Calcium,Total 8.2 mg/dL (8.5-10.1); Chloride 110 mmol/L (98-107); Creatinine, Serum 0.52 mg/dL (0.55-1.02); EST Glomerular Filtration Rate 151 mL/min (>60); Est Glom Filt Rate - Afr Amer 183 mL/min (>60); Estimated Creatinine Clearance 154.56 ml/min; Glucose 151 mg/dL (74-106); Potassium 4.1 mmol/L (3.5-5.1); Sodium Level 140 mmol/L (136-145)
[2022-05-04 07:57] LABS: CRP 7.16 mg/L (0.0-3.0)
[2022-05-04 08:32] LABS: Erythrocyte Sedimentation Rate 1 mm/hr (0-30)
[2022-05-04] MEDS: Ensure Clear 120 ML Liquid PO (09:43)
[2022-05-04 09:45] VITALS: BP 123/79; PULSE 73; RESP 17; TEMP 36.4; O2SAT 100
--- NOTE | 2022-05-04 10:53 | PCM.DC ---
Discharge Instructions Diet Discharge Diet: No restrictions Activity Discharge Activity: Return to Normal Activity Dressing / Incision Call your doctor if you observe: Fever of 101 or Higher, Shortness of breath, Dizziness, Fainting spells, Swelling in the ankles, Chest pain and Increased palpitations (irregular heartbeat) Follow Up Care Test Results: Test results from this visit will be discussed in further detail at your follow-up appointment, if applicable. Discharge Plan Admission Admit Date/Time: 04/30/22 18:29 Attending Provider: Claudio Sargent Primary Care Provider: Care Physician,No Primary Consulting Providers: Alan Varghese Instructions Additional Instructions / Restrictions: Follow-up with your swing type lathe operator who can wean your steroids after you start Stelara Discharge Orders/Prescriptions Prescriptions: New prednisone 20 mg tablet 40 mg PO BID 20 Days Qty: 80 0RF vancomycin 125 mg capsule 125 mg PO Q6H 10 Days Qty: 40 0RF Continued dicyclomine 10 mg Capsule 20 mg PO TIDAC Qty: 90 1RF Stelara 90 mg/mL syringe 90 mg subcut Q8W Qty: 1 11RF Discontinued prednisone 20 mg tablet 40 mg PO DAILY Qty: 60 0RF amoxicillin-pot clavulanate 875-125 mg tablet 1 tab PO BID Qty: 24 0RF Referrals / Follow Up: Sotero Priest DO [Med Staff - Active Staff] - 05/09/22 11:45 am (Please arrive 15 min early to complete paperwork. ) Care Physician,No Primary [Primary Care Provider] - Disposition Disposition (needs filled in before D/C Order can be placed): Home, Self Care
--- NOTE | 2022-05-04 11:39 | PHA.DC.MR ---
Pharmacy Service has performed discharge medication reconciliation for this patient. Attempted x3 to contact patient's room to perform tele-counselling given pt is in precautions d/t C.diff. Will try one more time to get in contact with patient. Home Medications dicyclomine 10 mg capsule 20 mg PO TIDAC #90 caps 04/25/22 ustekinumab 90 mg/mL subcutaneous syringe (Stelara) 90 mg subcut Q8W #1 mL 05/03/22 prednisone 20 mg tablet 40 mg PO BID 20 days #80 tabs 05/04/22 vancomycin 125 mg capsule 125 mg PO Q6H 10 days #40 caps 05/04/22 The patient's discharge medication list was reviewed for discrepancies and discrepancies were resolved.
--- NOTE | 2022-05-04 11:55 | CASEMGMT ---
Addendum entered by Yazmin Kathleen 05/04/22 12:07: TC to pt, she is aware of cost of vanco and cost through [facility]. She will provide this to pharmacy from her phone. She states she can afford this. Pt states she is all set up for Stelara and it will start next Saturday. Pt denies any further needs. Original Note: TC to [facility] pharmacy, cost for vancomycin is $768. Asked if they accept [facility] and rep states that they cannot look it up but pt can show them on the phone and they will honor it. Looked up cost on [facility] for same strength and number of capsules, lists $76.07-82.57. Will notify pt to see if able to afford.
--- NOTE | 2022-05-04 13:54 | DS.PCM_ITS ---
Providers Date of Admission: 04/30/22 Primary Care Physician: Ellen Primary Care Phys Consultations 04/30/22 20:49 Consult: Gastroenterology Routine Consulting Provider: Irina Gastroenterhalie Reason for Consult: UC flare EMERGENT Consult: No MD Notified: Yes Date Notified: 04/30/22 Time Notified: 18:30 Method of Notification: Verbal Reason For Visit: UC FLARE Diagnosis Discharge Diagnosis (1) Abdominal pain: Status: Resolved Code(s): R10.9 - Unspecified abdominal pain (2) Rectal bleeding: Status: Resolved Code(s): K62.5 - Hemorrhage of anus and rectum (3) Leukocytosis: Status: Acute Code(s): D72.829 - Elevated white blood cell count, unspecified (4) Anemia: Status: Acute Code(s): D64.9 - Anemia, unspecified Medications at Discharge Home Medications dicyclomine 10 mg capsule 20 mg PO TIDAC #90 caps 04/25/22 ustekinumab 90 mg/mL subcutaneous syringe (Stelara) 90 mg subcut Q8W #1 mL 05/03/22 prednisone 20 mg tablet 40 mg PO BID 20 days #80 tabs 05/04/22 vancomycin 125 mg capsule 125 mg PO Q6H 10 days #40 caps 05/04/22 Hospital Course Operations None Procedures None Summary of Care Provided Minutes Spent on Discharge: 32 Hospital Course: Per HPI: GRANT WEINBERG, is a 26 F who presents with recurrent hematochezia and abdominal pain.? Patient was admitted from the to the for what appea red to be a ulcerative colitis flare.? Patient was having hematochezia at that time.? By time she was discharged, the bradykinesia had greatly improved though not completely resolved.? It is been ongoing but progressively getting worse.? Over the past 24 hours, patient is having bloody bowel movements roughly every 1-2 hours.? Patient also has just constant left lower quadrant abdominal pain.? Before she has a bout of hematochezia, she will get crampy abdominal pain over her lower abdomen.? Patient had some issues several years ago but that resolved and never sought attention thereafter.? Patient was discharged with prednisone which she has been taking and was to follow-up gastroenterology but has not had the opportunity to follow-up. Hospital Course: 1. Continued ulcerative colitis flare?26-year-old female presents back to the hospital with continued abdominal pain and bloody bowel movements. Her steroids were increased and she did have significant improvement, her white count was elevated and was likely related to her ulcerative colitis however she was c ontinued and then broadened on antibiotics ultimately to Levaquin and Flagyl. Stool samples were sent and enteric pathogen panel was negative however C. difficile panel was positive for the PCR and the antigen but negative for the toxin, given the fact that she has ulcerative colitis on prednisone and did get approval to start Stelara, we will err on the side of caution and treat for 10 days with vancomycin every 6 hours p.o. Will also increase her outpatient steroids to 40 mg p.o. twice daily and I wrote her for 20 days worth so that way she can be tapered at the discretion of her entry level manager after she starts Stelara infusions. I discussed with her the plan for discharge today and she expressed understanding of the risk benefits going home and would like to go home today. She feels much better and is tolerating a regular diet. Physical Exam Narrative General: Alert, Oriented x3, Cooperative, No apparent distress HEENT: Atraumatic, PERRLA, EOMI, Normocephalic Oral: Moist Mucosa Neck: Supple, No JVD Lungs: Clear to auscultation, Normal air movement, No rhonchi, No wheeze, No rales Cardiovascular: Regular rate, Regular Rhythm, Normal S1, Normal S2, No murmurs Abdomen: Soft, Non Tender, Non-Distended, No Hepato-splenomegaly Extremities: No edema, Capillary Refill Less than 3 Seconds Skin: No rashes, No breakdown Musculoskeletal: No Tenderness to Palpation of Joints or Extremities Neurological: Cranial nerves II-XII grossly intact, Motor Exam 5/5 strength throughout, Sensory exam intact to light touch and pain Psych/Mental Status: Normal Affect, Appropriate Weight / BMI Weight Weight: 130 lb 8.218 oz Body Mass Index (BMI) 21.0 ABG / Lab / Microbiology Data Result Diagrams: 05/04/22 06:35 05/04/22 06:35 Laboratory: Laboratory Results - last 24 hr 05/04/22 06:35: WBC 17.3 H, RBC 3.71 L, Hgb 11.5 L, Hct 35.8 L, MCV 96.5, MCH 31.0, MCHC 32.1, RDW Std Deviation 47.8 H, RDW Coeff of Renetta 13.4, Plt Count 321, MPV 9.0, Immature Gran % (Auto) 1.700 H, Neut % (Auto) 88.8 H, Lymph % (Auto) 6.4 L, [place] % (Auto) 2.9, Eos % (Auto) 0.0, Baso % (Auto) 0.2, Absolute Neuts (auto) 15.4 H, Absolute Lymphs (auto) 1.11, Nucleated RBC % 0 05/04/22 06:35: Sodium 140, Potassium 4.1, Chloride 110 H, Carbon Dioxide 25.0, Anion Gap 5, BUN 15, Creatinine 0.52 L, Estim Creat Clear Calc 154.56, Est GFR (MDRD) Af Amer 183, Est GFR (MDRD) Non-Af 151, BUN/Creatinine Ratio 28.7 H, Glucose 151 H, Calcium 8.2 L 05/04/22 06:35: ESR 1 05/04/22 06:35: C-React Prot Ext Range 7.16 H Microbiology: Microbiology 05/03/22 12:39 Stool C. difficile GDH Antigen & Toxins - Final 05/03/22 12:39 Stool C. difficile DNA Amplification - Final 05/03/22 12:39 Stool Enteric Bacteriology - Final 05/03/22 12:39 Stool Stool Lactoferrin - Final 04/24/22 Unknown Stool Ova and Parasites - Final D/C Instructions Discharge Diet: No restrictions Call your doctor if you observe: Fever of 101 or Higher, Shortness of breath, Dizziness, Fainting spells, Swelling in the ankles, Chest pain and Increased palpitations (irregular heartbeat) Meaningful Use Info Meaningful Use Diagnoses (Choose all that apply): None applicable Discharge Plan Admission Admit Date/Time: 04/30/22 18:29 Attending Provider: Claudio Sargent Primary Care Provider: Care Physician,No Primary Consulting Providers: Alan Varghese Instructions Additional Instructions / Restrictions: Follow-up with your entry level manager who can wean your steroids after you start Stelara Discharge Orders/Prescriptions Prescriptions: New prednisone 20 mg tablet 40 mg PO BID 20 Days Qty: 80 0RF vancomycin 125 mg capsule 125 mg PO Q6H 10 Days Qty: 40 0RF Continued dicyclomine 10 mg Capsule 20 mg PO TIDAC Qty: 90 1RF Stelara 90 mg/mL syringe 90 mg subcut Q8W Qty: 1 11RF Discontinued prednisone 20 mg tablet 40 mg PO DAILY Qty: 60 0RF amoxicillin-pot clavulanate 875-125 mg tablet 1 tab PO BID Qty: 24 0RF Referrals / Follow Up: Sotero Priest DO [Med Staff - Active Staff] - 05/09/22 11:45 am (Please arrive 15 min early to complete paperwork. ) Care Physician,No Primary [Primary Care Provider] - Disposition Disposition (needs filled in before D/C Order can be placed): Home, Self Care Charges/Coding Visit Charges Inpatient E&M: 05346 Disch Hosp >30min
== END 2022-05-04 12:55 | disposition home or self-care (01) | DRG 385 ==
LOC: ED 16:03 → MS3 20:17
PROVIDERS: Hospitalist; Internal Medicine Gastroenterology; Emergency Provider Emergency Medicine; Visit Provider Family Medicine
DX: K51.911 Ulcerative colitis, unspecified with rectal bleeding (principal); E43 Unspecified severe protein-calorie malnutrition; D72.823 Leukemoid reaction; E87.6 Hypokalemia; F17.210 Nicotine dependence, cigarettes, uncomplicated; Z68.21 Body mass index [BMI] 21.0-21.9, adult; K86.89 Other specified diseases of pancreas
CPT/HCPCS: 36415; 80048; 80053; 81001; 82150; 83605; 83615; 83630; 83690; 83735; 84703; 85025; 85652; 86140; 87040; 87177; 87209; 87493; 87506; 93005; 99284; J7030; J7050; A4216; J2405

== ENCOUNTER → 2022-05-09 | Outpatient (CLI) | payer SELFPAY ==
[2022-05-09 13:07] LABS: Hepatitis B Surface Antibody Non-Reactive
[2022-05-10 17:07] LABS: IgG, Quant 691 mg/dL (586-1602); Immunoglobulin G, Subclass 1 331 mg/dL (248-810); Immunoglobulin G, Subclass 2 202 mg/dL (130-555); Immunoglobulin G, Subclass 3 38 mg/dL (15-102)
[2022-05-10 19:46] LABS: Immunoglobulin G, Subclass 4 24 mg/dL (2-96)
== END | disposition home or self-care (01) ==
PROVIDERS: Referring Provider Nurse Practitioner Adult Health; Visit Provider Nurse Practitioner Adult Health
DX: K51.90 Ulcerative colitis, unspecified, without complications (principal); K86.9 Disease of pancreas, unspecified
CPT/HCPCS: 36415; 82784; 82787; 86706

== ENCOUNTER → 2023-03-28 | Outpatient (CLI) | payer SELFPAY ==
--- OUTSIDE RECORDS SUMMARY | 2023-03-28 12:19 | XMS RPT_ITS | CCD ---
Author Name Unknown Address [address] [place] [address] Organization [facility] Care Team Providers Care Meter Reader Inspector Name Role Phone CRISTIAN GRESHAM MD Attending CRISTIAN Gaines MD Primary Care Unavailab CRISTIAN Garcia MD Admitting AMBAR Pedroza DO Admitting Unavailable AMBAR HOGAN DO Attending Unavailable AMBAR HOGAN DO Primary Care Unavailable Allergies Allergy Classification Reported Allergen(s) Allergy Type Date of Onset Reaction(s) Facility (1 source) Codeine Drug Allergy [facility] Repository (1 source) [facility]; Translations: [[facility]] Propensity to adverse reactions (disorder) [facility] Repository Results Test Name Value Interpretation Reference Range Facil ity Encounters Encounter Date Encounter Type Care Provider Facility Start: 11-19-2022 End: 11-19-2022 Emergency department patient visit AMBAR DASILVA [facility] Start: 05-13-2022 End: 05-14-2022 Emergency department patient visit CRISTIAN MARTINEZ MP [facility] Summary Purpose Family History No Family History Records FoundNo Family History Records Found Advance Directives No Advanced Directives Records FoundNo Advanced Directives Records Found Additional Source Comments INFORMATION SOURCE (unrecogn ized section and content) DATE CREATED AUTHOR AUTHOR'S ORGANIZ ATION 11/23/2022 [facility] FOR RECORDS PERTAINING TO PATIENTS WHO ARE OR HAVE BEEN ENROLLED IN A CHEMICAL DEPENDENCY/SUBSTANCEABUSE PROGRAM, SOME INFORMATION MAY BE OMITTED. This clinical summary was aggregated from multiple sources. Caution should be exercised in using it in the provision of clinical care. This summary normalizes information from multiple sources, and as a consequence, information in this document may materially change the coding, format and clinical context of patient data. In addition, data may be omitted in some cases. CLINICAL DECISIONS SHOULD BE BASED ON THE PRIMARY CLINICAL RECORDS. [facility] [employer] [facility]. provides no warranty or guarantee of the accuracy or completeness of information in this document.
[2023-03-28 12:48] LABS: Erythrocyte Sedimentation Rate 7 mm/hr (0-30)
[2023-04-01 13:07] LABS: HEPATITIS B SURFACE AG Negative (Negative); Hep C Antibodies Non Reactive (Non Reactive); Hepatitis A IgM Antibody Negative (Negative); Hepatitis B Core AB IgM Negative (Negative); QNTFERON TB Mitogen Value > 10.00 IU/mL (.); QNTFERON TB Nil Value 0 IU/mL (.); QNTFERON TB1+ Ag Value 0.25 IU/mL (.); QNTFERON TB2+ Ag Value 0 IU/mL (.); QNTIFERON TB Positive Criteria Negative (Negative)
== END | disposition home or self-care (01) ==
PROVIDERS: Referring Provider Internal Medicine Gastroenterology; Visit Provider Internal Medicine Gastroenterology
DX: K51.90 Ulcerative colitis, unspecified, without complications (principal)
CPT/HCPCS: 36415; 80074; 85652; 86140; 86480